=== PATIENT | male | born 1935 | race Caucasian/White ===

== ENCOUNTER 2023-03-21 06:22 | Day surgery (SDC) | payer MEDICARE, OTHER, SELFPAY ==
[2023-03-14 10:34] VITALS: BMI 29.8
[2023-03-21] VITALS (11 sets, daily range): BP systolic 106–156; BP diastolic 53–77; PULSE 51–92; RESP 11–17; TEMP 35.9–36.9; O2SAT 91–99; BMI 28.9
[2023-03-21] MEDS: VANCOMYCIN 1,000 MG/200 ML PIGGYBACK 200 MG IV (07:05)
[2023-03-21] MEDS: LACTATED RINGERS 1,000 ML 42 ML IV (07:05)
[2023-03-21] MEDS: ACETAMINOPHEN 325 MG TABLET 975 MG PO (07:05)
[2023-03-21] MEDS: CELECOXIB 200 MG CAPSULE PO (07:06)
--- NOTE | 2023-03-21 07:29 | SUR.OPER ---
Head on pillow. Supine on fracture table with operative leg secured in traction. Other leg secured in padded stirrup. Arms across chest, secured with sheet.
--- NOTE | 2023-03-21 07:40 | PM.PREOP ---
Pre-operative Note Interval Note History & Physical reviewed/Exam performed by Physician: Yes Changes to H&P: No
--- NOTE | 2023-03-21 07:43 | PM.OP.1 ---
Operative Date/Time/Diagnoses Date of procedure: 03/21/23 Time of procedure: 08:00 Pre-op diagnosis: right hip OA Post-op diagnosis: same Procedure & Clinicians Procedure: Right total hip arthroplasty anterior approach Same procedure as scheduled: Yes Indications: The patient has had progressively worsening right hip pain with radiographic changes consistent with arthritis. Non-operative management has failed and the patient has requested total hip replacement. The risks, benefits and alternatives to surgery were discussed with the patient prior to proceeding. Risks discussed included, but were not limited to, failure to relieve pain, leg length discrepancy, dislocation, stiffness, infection, nerve damage, deep venous thrombosis, pulmonary embolism, stroke, coma, heart attack, permanent paralysis and , as well as the potential need for eventual revision of the prosthetic. Surgeon: Izabel Kirby Director Of Special Services: Farhad Cuello Anesthesia Type: General and Spinal Operative Notes Findings: Severe right hip OA, adequate stability Closure Type: primary Specimen(s): none sent Prosthetic devices, grafts, tissues, transplants, or devices: Kirby and nephew 58 mm R3, neutral poly liner, one 6.5 mm screw, polar stem standard offset size 6, size 36+ 8 cobalt chrome head Estimated Blood Loss (mL): 250 Blood products transfused: none Procedure in detail: The patient was brought to the operating room. Patient was carefully positioned in the supine position. Time-out was performed and antibiotics were given. Anesthesia was induced. He was positioned in the on the table in order to allow hyperextension of the hip. The right lower extremity was prepped and draped in a standard sterile fashion. An anterior right hip incision was made 1 fingerbreadth lateral to the anterior superior iliac spine and extended distally towards the greater trochanter. Dissection was carried out through skin and subcutaneous tissues. Superficial hemostasis was achieved. The fascia over the tensor fascia yana was defined and incised with a knife. Two Allis clamps were used to grasp the fascia. Tensor fascia yana was retracted laterally. A gelpi retractor was placed. Dissection was carried out down along the neck. The circumflex vessels were carefully identified and cauterized with the Aqua Mantis. There was good visualization of the femoral neck. A Cobra was placed superior to the neck and the gluteus fibers were carefully stripped from that superior aspect of the capsule. A 2nd retractor was placed along the inferior aspect of the neck. The rectus insertion along the capsule was partially released. A 3rd retractor that was then gently placed over the rim of the acetabulum under the rectus. Capsule was carefully incised and released from the intertrochanteric line circumferentially superior to the mid sagittal line and inferiorly to the mid sagittal line until the lesser trochanter was palpable. A tag stitch was placed both in the superior and inferior limb of the capsular insertion. Along the acetabulum capsule was also released up to the mid sagittal 12:00 position. A portion of the labrum was resected. A saw was used to perform an osteotomy at the level of the intertrochanteric line and the junction of the superior femoral neck leaving approximately 1 finger breath of residual inferior neck above the lesser trochanter. A 2nd cut was made along the femoral neck at the base of the head and a napkin ring of neck was removed. Corkscrew was placed in the femoral head and the head was removed without difficulty. Retractors were then repositioned around the acetabulum. Residual labrum was resected and additional osteophytes were removed. A reamer that was 4 mm below the templated size was placed by hand in the acetabulum and it was reamed to centralize the acetabulum. It was then reamed up to 2 under the templated size and fluoroscopy was brought in to confirm the position of the reaming and depth of reaming. I reamed 1 under the anticipated size. A trial cup was placed and noted that it was appropriately sized and fluoroscopy confirmed position and depth. The component was open and inserted without difficulty fluoroscopic imaging was used to confirm that the cup had been adequately seated and was well positioned. It was further stabilized with a single screw. Neutral poly liner was placed. The cup was tested and noted to be stable. Attention was then directed to the femur. The femur was gently hyperextended additional capsular release was performed as needed in order to allow adequate visualization of the proximal femur with elevation of the femur. Patient was placed in a hyperextended slightly adducted position with maximum external rotation. Box osteotome was used to check for any residual neck as well as sclerotic bone along the trochanter. [place] pepper was placed in the femur. Additional broaching was performed. Canal finder was used to determine the alignment of the canal and position. Size 1 broach was placed. The canal was then appropriately broached up to the templated size as long as there was adequate stability of the broach and serial advancement of the broach without excessive impingement. Specific attention was directed at avoiding varus attempting to direct the distal aspect of the broach more anteriorly and avoiding excessive anteversion. Trial reduction showed acceptable range of motion, good stability, no posterior impingement, yazidism of leg length and appropriate lateral shuck. I also hyperflexed the hip and checked that there was no impingement anteriorly and there was good stability with flexion, adduction and internal rotation. We evaluated both the standard and the high offset neck and several different head and neck lengths. Standard offset with a +8 looked like it most closely replicated his normal hip biomechanics. There was good stability. Marcaine and Exparel were injected. The stem was placed without difficulty. Repeat trial reduction and x-ray showed acceptable overall position, length, and no evidence of the femoral fracture. Final head was placed. Wound was meticulously irrigated with normal saline. The hip was reduced and additional Exparel and Marcaine were injected. The capsule was closed with interrupted nonabsorbable sutures. The fascia of the tensor was closed with interrupted and running Vicryl. No drain was placed. Any tensor fascia yana muscle that appeared to be contused or injured which was a minimal amount was carefully resected. Capsule around the tensor was injected with Exparel and Marcaine. The skin was closed with barbed stitches for the subcutaneous tissue and skin. We also used surgical glue. The wound was dressed sterilely. Brief Betadine soak was also used and was meticulously irrigated with normal saline. Patient was transferred to recovery room in satisfactory condition. Complications: none Post-operative Condition: stable Disposition: Acute Care Plan for aftercare: The patient will be maintained on a standard total hip replacement protocol with weight bearing as tolerated and anterior hip precautions. The patient will receive Aspirin and sequential compression devices for DVT prophylaxis. The patient will be discharged home when safe for the home environment.
[2023-03-21] MEDS: CEFAZOLIN 2 GM/100 ML PREMIX 100 ML IV ×3 (07:49→23:22)
--- NOTE | 2023-03-21 08:00 | DI.RAD.S_ITS ---
PROCEDURE: XR HIP W PEL IF DONE RT 2V INDICATIONS: INNER OP TECHNIQUE: 2 view(s) of the hip acquired. COMPARISON: [facility], [place], XR HIP W PEL IF DONE RT 2V, 03/21/2023, 10:39. [facility] [place], [place], XR PELVIS WITH LATERAL HIP RIGHT, 12/07/2022, 16:13. [facility], [place], XR HIP W PEL IF DONE WIL 3TO4V, 07/11/2022, 11:10. [facility], [place], HIP 2V RIGHT, 04/23/2012, 14:56. FINDINGS: 4 intraoperative fluoroscopy images demonstrate right hip arthroplasty with prosthesis placement. IMPRESSION: Expected post-operative appearance of a hip arthroplasty. Dictated by: Alesha Gates M.D. on 03/21/2023 at 13:10 Approved by: Alesha Gates M.D. on 03/21/2023 at 13:11
[2023-03-21] MEDS: BUPIVACAINE 0.25% (PF) VIAL 30 ML INJ (08:33)
[2023-03-21] MEDS: BUPIVACAINE LIPOSOME 266 MG/20 ML VIAL INJ (08:34)
[2023-03-21] MEDS: TRANEXAMIC ACID 1,000 MG VIAL 1000 MG INJ (09:27)
--- NOTE | 2023-03-21 10:56 | SUR.PHASEI ---
Patient awake but drowsy; following all commands. Denies pain or nausea. Afib noted on monitor which is patient's baseline cardiac rhythm.
--- NOTE | 2023-03-21 11:00 | DI.RAD.S_ITS ---
PROCEDURE: XR HIP W PEL IF DONE RT 2V INDICATIONS: POST OP ANTERIOR HIP TECHNIQUE: AP pelvis and lateral view of the hip acquired. COMPARISON: [facility], [place], XR HIP W PEL IF DONE RT 2V, 03/21/2023, 8:59. FINDINGS: Bones: Patient is status post right hip arthroplasty, with hardware components in expected positions. The hip joint appears congruent. The visualized bony structures appear intact. Soft tissues: Overlying postoperative changes are noted. No suspicious soft tissue densities. IMPRESSION: Expected post-operative appearance of a hip arthroplasty. Dictated by: Emily Barnett M.D. on 03/21/2023 at 11:27 Approved by: Emily Barnett M.D. on 03/21/2023 at 11:27
[2023-03-21] MEDS: ACETAMINOPHEN 325 MG TABLET 650 MG PO ×3 (11:49→23:22)
[2023-03-21] MEDS: LACTATED RINGERS 1,000 ML 100 ML IV (11:49)
[2023-03-21] MEDS: OXYCODONE IR 5 MG TABLET PO (14:38)
--- NOTE | 2023-03-21 15:37 | PT.IIE ---
Current Diagnoses Unilateral primary osteoarthritis, right hip (03/21/23) Surgery Performed Operation Date: 03/21/23 07:45 Actual Procedures p Total Hip Arthroplasty/Anterior Approach(Right) - Izabel Kirby MD Surgical History (Last Updated 03/09/23 @ 10:30 by Flori Garza, RN) H/O arthroscopic knee surgery H/O radical prostatectomy History of heart bypass surgery (2008) History of hernia repair History of partial thyroidectomy History of tonsillectomy Hx of inguinal hernia surgery S/P right knee arthroscopy Status post coronary artery bypass graft (2008) Status post transurethral resection of prostate Medical History (Last Updated 03/14/23 @ 10:38 by lFori Garza RN) Anesthesia complication Aortic regurgitation Atrial fibrillation Brown's syndrome CAD (coronary artery disease) Cataract Dilated cardiomyopathy Hypercalcemia Hyperlipidemia Hyperparathyroidism Hypertension Kidney stones Non-sustained ventricular tachycardia PAF (paroxysmal atrial fibrillation) Polio Prostate cancer Scarlet fever Status post aorto-coronary artery bypass graft Ventral incisional hernia without obstruction or gangrene Physical Therapy Inpatient Evaluation/Re-Eval M1 PT/OT-IP Prior Functional Status Start: 03/21/23 14:25 Freq: NEEDED Status: Active Protocol: Document 03/21/23 15:00 MB (Rec: 03/21/23 15:36 MB [id number]) Medical Review Prior Functional Status Medical History Reviewed Yes Diet/Fluid Consistency Regular Communication WNLs Mobility and Gait Mod I with rollator Activities of Daily Living and IADL's I Social History Household Members spouse,children Living Arrangements House Number of Floors (Floors) One Floor Number of Stairs To Enter/Railing? 2 steps with left rail ascend to enter Home Environment Standard Height Toilet,Walk in Shower,Built-In Shower Seat Home Equipment Front Wheel Walker,Four Wheel Walker,Straight Cane,Shower Seat with Backrest Employment Status Retired Additional Social History Comment Mechanical bed M2 PT-IP Current Condition Start: 03/21/23 14:25 Freq: NEEDED Status: Active Protocol: Document 03/21/23 15:00 MB (Rec: 03/21/23 15:36 MB [id number]) Physical Therapy Current Condition Current Condition Evaluation Date 03/21/23 Treatment Diagnosis Right anterior FAITH M3 PT-IP Subjective Start: 03/21/23 14:25 Freq: NEEDED Status: Active Protocol: Document 03/21/23 15:00 MB (Rec: 03/21/23 15:36 MB [id number]) Subjective Physical Therapy Visit Type Type Initial Evaluation Visit Start Time 15:00 Visit Stop Time 15:28 Total Visit Minutes 28 Number of CHAINER Visits 0 Physical Therapy Visit Comments Patient Comments Pt states he is doing well. Therapy Pain Assessment Pain When Pain Assessed At Rest Pain Present Pain Present Denied Pain M4 PT-IP Mobility and Gait Start: 03/21/23 14:25 Freq: NEEDED Status: Active Protocol: Document 03/21/23 15:00 MB (Rec: 03/21/23 15:36 MB [id number]) PT-Bed Mobility Assessment Supine to Sit Supine to Sit Standby Assistance,Head of Bed Elevated Scooting Scooting to Edge of Bed Standby Assistance PT-Transfer Assessment Sit to and From Stand Sit to and from Stand Standby Assistance,1 Person Assistance,Use of Upper Extremities Equipment Transfer Assistive Device Gait Belt,Front Wheeled Walker Orthotic/Prosthetic Devices or Brace: No Transfer Ability Level of Assist Standby Assistance,1 Person Assistance,Use of Upper Extremities Comments Mobility Comments Cues to push up from the bed. Pt has mechanical bed at home and uses mechanical function of hospital bed and no rail. Gait Assessment Gait Gait Assistance Required: Standby Assistance Distance (Feet) 100 Able to Maintain Weight Bearing Status Yes During Gait Assistive Devices Assistive Device Gait Belt,Front Wheeled Walker Orthotic/Prosthetic Devices or Brace: No Gait Deviations General Gait Pattern Antalgic,Decreased Stride Length Factors Limiting Gait Function Factors Limiting Gait Function Decreased Activity Tolerance Comments Gait Comments Pt gait trains 100'x2 with RW and he states he does not have any pain: SBA and requires PT assistance to push IV pole Stair Climbing Assessment Evaluation Level of Assist On Stairs Standby Assistance,1 Person Assistance Devices Stair Climbing Assistive Devices Left Railing Technique/Endurance Stair Climbing Direction Ascend and Descend Stair Climbing Technique Step Over Step,Step to Step Number of Steps Climbed 3 Query Text: Stair Climbing Set # Repetitions (reps) 1 Comments Stair Climbing Comments Step over step ascend and step -to gait descend, leading with left foot first descend PT-Balance Assessment Sitting Balance and Reactions Static Sitting Balance Ability Good Dynamic Sitting Balance Ability Good Standing Balance and Reactions Static Standing Balance Ability Good Dynamic Standing Balance Ability Good Device Used RW M5 PT-IP Objective Assessments Start: 03/21/23 14:25 Freq: NEEDED Status: Active Protocol: Document 03/21/23 15:00 MB (Rec: 03/21/23 15:36 MB [id number]) Orientation Orientation/Cognition Level of Alertness Alert Orientation Name,Age,Birthday,Month,Date, Year,Day of Week,Place, Situation Language Function Ability No Deficits Noted Safety Awareness Understands Safety Issues Memory Description No Deficits Noted Gross Range of Motion Upper Extremity ROM Assessment Within Functional Limits Lower Extremity ROM Assessment Right Impaired Strength Upper Extremity Strength Assessment Within Functional Limits Lower Extremity Strength Assessment Right Impaired Comments Strength Comments Right hip range and strength changes same day post-op right FAITH Sensation Assessment Sensation Gross Sensation WNL M6 PT-IP Treatment Start: 03/21/23 14:25 Freq: NEEDED Status: Active Protocol: Document 03/21/23 15:00 MB (Rec: 03/21/23 15:36 MB [id number]) Physical Therapy Treatment Exercises Exercises Ankle Pumps,Heel Slides Education Education Provided Precautions,Weight Bearing Status,Post-Op Packet,Safety M7 PT-IP Assessment and Plan Start: 03/21/23 14:25 Freq: NEEDED Status: Active Protocol: Document 03/21/23 15:00 MB (Rec: 03/21/23 15:36 MB [id number]) PT Summary Assessment and Plan Potential Rehabilitation Potential Excellent Status of Condition at Evaluation Stable Summary Impairments ROM,Gait,Activity Tolerance Progress Towards Goals Safe For Discharge Assessment Summary Pt is a pleasant 87 y/o male who denies pain after medication and feels a lot better post-op right FAITH. He requires SBA for all activities including transfers , gait and steps giving IV and this is is first time up, same day surgery. He will have son assistance at d/c. PT ed pt in anterior hip precautions , exercises and stair training . No further acute PT needs. He has outpatient PT set-up for next week. Frequency of Treatment Frequency Of Treatment Discharge Precautions Anterior Hip Precautions No Hip Extension,No Hip External Rotation Weight Bearing Status Weight Bearing Status Weight Bear as Tolerated Recommendations To Nursing Amount of Assist Needed Standby Assistance,1 Person Assist Discharge Recommendations PT Discharge Recommendations Home with Assistance, Outpatient PT Transportation Needs at Discharge Private Vehicle
[2023-03-21] MEDS: MAGNESIUM OXIDE 400 MG TABLET PO (16:14)
[2023-03-21] MEDS: METOPROLOL IR 25 MG TABLET PO (16:14)
[2023-03-21] MEDS: ATORVASTATIN 20 MG TABLET PO (16:14)
[2023-03-21] MEDS: PANTOPRAZOLE DR 20 MG TABLET PO (20:50)
[2023-03-21] MEDS: VIT C/E/ZN/COPPR/LUTEIN/ZEAXAN CAPSULE 1 CAP PO (20:50)
[2023-03-21] MEDS: CHOLECALCIFEROL (VITAMIN D3) 1,000 UNIT TABLET 1000 UNIT PO (20:50)
[2023-03-21] MEDS: DOCUSATE 100 MG CAPSULE PO (20:50)
[2023-03-22 04:51] LABS: Hematocrit 36.9 % (41-53); Hemoglobin 12.7 g/dL (13.5-17.5)
[2023-03-22] MEDS: ACETAMINOPHEN 325 MG TABLET 650 MG PO ×2 (06:49→10:09)
--- NOTE | 2023-03-22 07:36 | PM.DS.1 ---
History of Present Illness History of Present Illness Chief complaint: Right FAITH 03/21/23 Narrative: The patient has had progressively worsening right hip pain with radiographic changes consistent with arthritis. Non-operative management has failed and the patient has requested total hip replacement. The risks, benefits and alternatives to surgery were discussed with the patient prior to proceeding. Risks discussed included, but were not limited to, failure to relieve pain, leg length discrepancy, dislocation, stiffness, infection, nerve damage, deep venous thrombosis, pulmonary embolism, stroke, coma, heart attack, permanent paralysis and , as well as the potential need for eventual revision of the prosthetic. This morning he is feeling well. Pain is controlled with oral medications. He was able to work with physical therapy yesterday and walk throughout the floor. He is ready to be discharged home with family. Discharge Providers Provider Date of admission: 03/21/2023 Discharge Date: 03/22/23 Primary care physician: Tiago May MD Consults: 03/21/23 06:27 Consult to Anesthesiology Routine Comment: Consulting Provider: Anesthesiologist Reason for consultation: Regional block for post operative pain control 03/21/23 11:03 Consult to Discharge Planning Routine Comment: Consult to Occupational Therapy Evaluate & Treat Comment: Physician Instructions: Evaluate and treat Consult to Physical Therapy Evaluate & Treat Comment: Physician Instructions: post op FAITH protocol Discharge provider: Dylan Baez PA-C Summary Hospital Course Discharge Diagnosis: Status post right hip total arthroplasty Hospital Course: Pain relief. Physical therapy. Status at Discharge Cognitive/behavioral status at discharge: oriented Functional status at discharge: uses cane/walker Overall status at discharge: patient is back to baseline Time Spent with Patient Time spent: Less than 30 minutes Exam Vital Signs (past 8 hours): Oxygen Delivery Method Room Air Oxygen Flow Rate 0 Narrative Exam Narrative: Patient is found lying comfortably in the bed. Dressing is clean and dry. No pain to compression along posterior thigh or calf. Able to dorsiflex and plantar flex against resistance the lower extremities bilaterally. Sensation is grossly intact bilaterally. Resp Effort & Inspection: normal respiratory effort and able to speak in complete sentences Objective Labs 03/22/23 04:25 Labs: Laboratory Results - last 24 hr 03/22/23 04:25 Hgb 12.7 L Hct 36.9 L [facility] Medical History (Updated 03/14/23 @ 10:38 by Flori Garza RN) Scarlet fever Dilated cardiomyopathy Hyperparathyroidism Hypercalcemia PAF (paroxysmal atrial fibrillation) Non-sustained ventricular tachycardia Anesthesia complication Polio Ventral incisional hernia without obstruction or gangrene Status post aorto-coronary artery bypass graft Atrial fibrillation Cataract CAD (coronary artery disease) Hyperlipidemia Hypertension Kidney stones Brown's syndrome Prostate cancer Aortic regurgitation Surgical History (Updated 03/09/23 @ 10:30 by Flori Garza RN) History of partial thyroidectomy H/O radical prostatectomy S/P right knee arthroscopy History of heart bypass surgery (2008) History of hernia repair History of tonsillectomy Hx of inguinal hernia surgery H/O arthroscopic knee surgery Status post transurethral resection of prostate Status post coronary artery bypass graft (2008) Family History Father Hypertension Colon cancer Arrhythmia Mother Hypertension Alzheimer's disease Social History marital status: household members: spouse and children Smoking Status: Never smoker alcohol intake: current substance use type: does not use Discharge Assessment & Plan Assessment and Plan Assessment: Status post right hip arthroplasty Plan of Treatment: Prescribed oxycodone 5mg take 1 tablet every 4 hours as needed for pain. Continue with Eliquis 5 mg for DVT prophylaxis. Start outpatient physical therapy within the next 7-10 days. Follow-up at [facility] orthopedics clinic in 2 weeks for wound check. Discharge Plan Discharge Plan Patient Disposition: Home Discharge orders & Medications Discharge Orders: Discharge (Order); Ordered 03/22/23 Ordered By: Dylan Baez Prescriptions: Continued cetirizine 10 MG tablet 10 mg PO DAILY Qty: 0 magnesium oxide 400 MG tablet 400 mg PO DIRECTED Qty: 0 Rx Instructions: 800 mg qam and 400 qpm Eliquis 5 MG tablet 5 mg PO BID Qty: 0 omeprazole 20 mg capsule,delayed release(DR/EC) See Rx Instructions .ROUTE .COMPLEX Qty: 180 3RF Dose Instruction: TAKE 1 CAPSULE TWICE DAILY Rx Instructions: TAKE 1 CAPSULE TWICE DAILY ipratropium bromide 21 mcg (0.03 %) spray,non-aerosol 2 spray intranasal BID-TID PRN (Reason: allergy symptoms) Qty: 90 3RF Rx Instructions: administer into each nostril fluticasone furoate 27.5 mcg/actuation [place],Suspension 1 spry Intranasal DAILY atorvastatin 20 mg Tablet 20 mg PO BEDTIME metoprolol tartrate 25 mg Tablet 25 mg PO BEDTIME losartan-hydrochlorothiazide 50-12.5 mg Tablet 1 tab PO DAILY Qty: 0 PreserVision AREDS-2 250-90-40-1 mg Capsule 1 tab PO BID acetaminophen 500 mg Tablet 1,000 mg PO BID metoprolol tartrate 25 mg tablet 75 mg PO QAM cholecalciferol (vitamin D3) 1,000 unit capsule 1,000 unit PO BEDTIME Follow up/Referrals: Tiago May MD [Primary Care Provider] - Izabel Kirby MD [Physician] - As previously scheduled (Follow up with Farhad Cuello PA-C, on 03/30/2023 @ 2:20 pm at [facility] in [place].) Diet/Activity/Treatments Diet: Diet as Tolerated Activity: Weightbearing as tolerated to right leg. Anterior hip precautions. Cold/Heat Therapy: Ice to hip as needed for pain. Skin/Wound/Dressing Care Report to your healthcare provider any signs of infection, such as:: chills, fever, night sweats, unusual drainage and unusual redness Dressing: May shower. Leave bandage in place until follow up in office. No bathing or otherwise soaking incision. Call the office if the dressing becomes saturated inside. Visit Report/Discharge Packet Instructions: DI for Hip Replacement, DI for Prescription Opioid Use Stand Alone Forms: Patient Portal/API, Surgery Discharge Discharge Data Primary Care Provider: Tiago May Attending Provider: Izabel Kirby Quality VTE Deep Vein Thrombosis/Pulmonary Embolism Present on Admission: No
[2023-03-22] MEDS: VIT C/E/ZN/COPPR/LUTEIN/ZEAXAN CAPSULE 1 CAP PO (08:30)
[2023-03-22] MEDS: METOPROLOL IR 25 MG TABLET 75 MG PO (08:30)
[2023-03-22 08:31] VITALS: BP 124/56; PULSE 79
[2023-03-22] MEDS: LOSARTAN 50 MG TABLET PO (08:31)
[2023-03-22] MEDS: hydroCHLOROthiazide 25 MG TABLET 12.5 MG PO (08:31)
[2023-03-22] MEDS: PANTOPRAZOLE DR 20 MG TABLET PO (08:31)
--- NOTE | 2023-03-22 08:40 | OT.IP.EVAL ---
Current Diagnoses Unilateral primary osteoarthritis, right hip (03/21/23) Surgery Performed Operation Date: 03/21/23 07:45 Actual Procedures p Total Hip Arthroplasty/Anterior Approach(Right) - Izabel Kirby MD Past Medical History (Last Updated 03/14/23 @ 10:38 by Flori Garza, RN) Anesthesia complication Aortic regurgitation Atrial fibrillation Brown's syndrome CAD (coronary artery disease) Cataract Dilated cardiomyopathy Hypercalcemia Hyperlipidemia Hyperparathyroidism Hypertension Kidney stones Non-sustained ventricular tachycardia PAF (paroxysmal atrial fibrillation) Polio Prostate cancer Scarlet fever Status post aorto-coronary artery bypass graft Ventral incisional hernia without obstruction or gangrene Surgical History (Last Updated 03/09/23 @ 10:30 by Flori Garza RN) H/O arthroscopic knee surgery H/O radical prostatectomy History of heart bypass surgery (2008) History of hernia repair History of partial thyroidectomy History of tonsillectomy Hx of inguinal hernia surgery S/P right knee arthroscopy Status post coronary artery bypass graft (2008) Status post transurethral resection of prostate Occupational Therapy Inpatient Evaluation/Re-Eval M1 PT/OT-IP Prior Functional Status Start: 03/22/23 10:03 Freq: NEEDED Status: Active Protocol: Document 03/22/23 10:04 [facility] (Rec: 03/22/23 10:16 [facility] [id number]) Medical Review Prior Functional Status Medical History Reviewed Yes Diet/Fluid Consistency Regular Communication WNLs Mobility and Gait Mod I with rollator Activities of Daily Living and IADL's Independent but had pain during ADL and IADl needs. Social History Household Members spouse,children Living Arrangements House Number of Floors (Floors) One Floor Number of Stairs To Enter/Railing? 2 steps with left cabilnet to ascend to enter Home Environment Standard Height Toilet,Walk in Shower,Built-In Shower Seat Home Equipment Front Wheel Walker,Four Wheel Walker,Straight Cane,Raised Toilet Seat Without Armrests, Shower Seat with Backrest,Long Handled Shoe Horn,Estate Planning Attorney, Sock Aid Employment Status Retired Additional Social History Comment Mechanical bed M2 OT-IP Current Condition Start: 03/22/23 10:03 Freq: Status: Active Protocol: Document 03/22/23 10:04 [facility] (Rec: 03/22/23 10:16 [facility] [id number]) Occupational Therapy Current Condition Current Condition Evaluation Date 03/22/23 Treatment Diagnosis S/P R FAITH Anterior Diagnosis Onset Date 03/21/23 Post Operative Precautions Anterior Hip Precautions No Hip Extension,No Hip External Rotation M3 OT- IP Subjective and Pain Start: 03/22/23 10:03 Freq: Status: Active Protocol: Document 03/22/23 10:04 [facility] (Rec: 03/22/23 10:16 [facility] [id number]) OT- Subjective Occupational Therapy Visit Type Type Initial Evaluation Visit Start Time 08:40 Visit Stop Time 09:12 Total Visit Minutes 32 Occupational Therapy Visit Comments Patient Comments Pt agreed to get dressed but not wanting to shower. Patient/Caregiver Goals TO go home. OT Pain Assessment Pain When Pain Assessed At Rest Pain Present Pain Present Pain Reported Location Right Hip Intensity 2 Scale Used Numeric (0 - 10) M4 OT- IP ADL's Start: 03/22/23 10:03 Freq: Status: Active Protocol: Document 03/22/23 10:04 [facility] (Rec: 03/22/23 10:16 [facility] [id number]) OT [id number] General Evaluation Self-Feeding Ability Independent OT ADL-Grooming General Evaluation Grooming Ability Independent OT ADL-Oral Care General Eval Oral Care Ability Independent OT ADL-Dressing General Eval Upper Body Dressing Ability Minimal Assistance Lower Body Dressing Ability Minimal Assistance Comments OT Dressing Comments Assist to help adjust his suspenders, and assist for slip on shoes. Pt educated to not cross over his RLE into external rotation. Pt sattes has a sock aid at home to assist with needs. Educated to dress his RLE first and take out last. OT ADL-Toileting Comments OT Toileting Comments Educated to roll FWW over the toilet to urinate and use of urinal at night. OT ADL-Bathing Comments OT Bathing Comments Pt states to shower at home. Went over care for showering needs for the dressing. M5 OT- IP IADL's Start: 03/22/23 10:03 Freq: Status: Active Protocol: Document 03/22/23 10:04 [facility] (Rec: 03/22/23 10:16 [facility] [id number]) OT-Instrumental Activities of Daily Living Deficits IADL Deficits Identified Deficits Home Safety Awareness Awareness of Need for Assistance at Home Good Awareness Ability to Problem Solve Emergency Able to Problem Solve Situations Meal Preparation Meal Preparation Caregiver Provides Assist Wood Heel Fitter Machine Wood Heel Fitter Machine Caregiver Provides Assist M6 OT- IP Functional Cognition Start: 03/22/23 10:03 Freq: Status: Active Protocol: Document 03/22/23 10:04 [facility] (Rec: 03/22/23 10:16 [facility] [id number]) Cognitive Factors Limiting Selfcare Function Cognitive Ability Level of Alertness Alert Patient Orientation Name,Age,Birthday,Month,Date, Year,Day of Week,Place, Situation Attention Span Ability Capable of Focused Attention, Capable of Sustained Attention Ability to Follow Commands Able to Follow One Step Commands Cognitive Comments Cognitive Assessment Comments Pt able follow directions for all ADL and mobility needs. Pt just needing reminders to keep the FWW in front of him while doing grooming needs. OT- Vision and Hearing OT- Hearing Assessment OT- Hearing Assessment Hearing Impaired,Use of Hearing Aids OT- Vision Assessment Visual Acuity Glasses All The Time Visual Attentiveness WFL Occular Pursuits WFL M7 OT- IP Mobility and Balance Start: 03/22/23 10:03 Freq: Status: Active Protocol: Document 03/22/23 10:04 [facility] (Rec: 03/22/23 10:16 [facility] [id number]) OT-Transfer Assessment Sit to and From Stand Sit to and from Stand Standby Assistance Transfers Transfer Ability Standby Assistance Technique Transfer Destination Chair Transfer Technique Stand Step Pivot Devices Transfer Assistive Devices Front Wheeled Walker Comments Mobility Comments SBA with FWW. OT- Balance Assessment Sitting Balance and Reactions Static Sitting Balance Ability Good Dynamic Sitting Balance Ability Good Standing Balance and Reactions Static Standing Balance Ability Good Dynamic Standing Balance Ability Fair M9 OT- IP Assessment and Plan Start: 03/22/23 10:03 Freq: Status: Active Protocol: Document 03/22/23 10:04 [facility] (Rec: 03/22/23 10:16 [facility] [id number]) OT Summary Assessment and Plan Potential Rehabilitation Potential Good Analytic Complexity at Evaluation Low Summary OT Impairments Pain,Balance,Functional Mobility,Dressing,Bathing, Shower Transfers Progress Towards Goals Progressing Toward Goals Assessment Summary Pt low complexity and main barriers are pain, needing assist for dressing and showering needs. Pt has supportive family at home to assist for his needs. Goals Dressing Goal Independent,Long Handled Shoe Horn,Estate Planning Attorney,Sock Aid Shower Transfer Goal Independent Days to Meet Goals 3 Frequency of Treatment Frequency Of Treatment Once a Day Treatment Plan OT Treatment Plan ADL Training,Functional Mobility,Patient/Family Education,Discharge Planning Discharge Recommendations OT Discharge Recommendations Home with Assistance, Outpatient PT Transportation Needs at Discharge Private Vehicle
[2023-03-22 08:44] VITALS: BP 124/56; PULSE 79; RESP 14; TEMP 36.5; O2SAT 99
--- NOTE | 2023-03-22 10:42 | CM.DANOTE ---
DCP: Case received, EMR reviewed and met with patient. Introduced self and role. Was able to obtain information regarding patient's baseline activity status prior to his surgery. DCP assessment completed with information currently available. Patient is an 87 year old male who admitted yesterday morning to the care of the orthopedic team. PCP: Dr. May. Payer: confirmed: Medicare/Commercial Insurance. Patient came to the hospital for a surgical procedure. Patient had right total hip arthroplasty anterior approach. Patient has history of right hip OA. Met with with patient in his room. He was sitting up in chair, alert. Confirmed that he resides here in [place] with his spouse, Ree. He indicated that she will be assisting him when he goes home. Patient also has a son to assist him at home as well. Patient has two steps to enter the house, he has worked with P.T and O.T. Patient is independent at his baseline. P: Patient is discharging home today, most likely with outpatient therapy. Maday Pizano RN/Policy Loan Calculator Discharge Planning/Care Management CM Discharge Assessment Start: 03/22/23 10:40 Freq: Status: Active Protocol: Document 03/22/23 10:41 (Rec: 03/22/23 10:42 [id number]) Discharge Planning Assessment Assigned Drawer Maker Maday Pizano RN/Policy Loan Calculator Advance Directives? Yes: Advance Health Care Directive and Living Will Advance Directives on File Yes History Provided By Patient,Medical Record Prior Living Arrangements House Household Members spouse,children Type of transporation used prior to Drives own vehicle admit Independent with ADL's Yes Is patient alert and oriented? Yes Caregiver for Another No DME Already Rented / Owned Cane Barriers to Discharge No Discharge Plan Home Transportation Arrangement Spouse Referrals Initiated None needed Whiteboard Updated in Patient Room with Yes name and ext. # of Drawer Maker Review Status In Process Next Review Type Continued Stay Review Pre-Anesthesia Assessment Start: 03/09/23 09:47 Freq: Status: Discharge Protocol: Document 03/14/23 10:34 CAB (Rec: 03/09/23 10:32 CAB [id number]) Pre-Anesthesia Assessment PAC Comment Pt was abrupt and stated I was the third person who has asked him these questions and I should get with the lee that be because this is annoying for the person When I attempted to explain the need to confirm that we have the most correct information, he interrupted and said again it was annoying. 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 Patient Information Reviewed Via Phone Assessment Assessment Completed With Patient Diagnostic Results BMP/CMP,CBC,EKG Comment Labs/EKG Primary Care Provider Tiago May Seen Specialist in Last 12 Months Yes Specialist Seen Hospital Social Worker,Orthopedist Primary Language Azerbaijani Installation Service Representative Required No Height 5 ft 9.5 in Weight 205 lb Body Mass Index (BMI) 29.8 Hx Anesthesia Reactions Yes: Difficulty with intubation w/CABG '09, none since Hx Family Anesthesia Reaction No Hx Malignant Hyperthermia No Hx Blood Transfusions No Hx Blood Transfusion Reaction No Anesthesia Review Requested No Director Medical Writing No alcohol intake current alcohol intake frequency a few times a week Smoking Status Never smoker Substance Use Type does not use Pain Present Pain Reported Musculoskeletal Symptoms Abnormal Gait,Back Pain, Difficulty Walking,Joint Pain History of Falling (Recent or History of Yes ) Patient is completely paralyzed or No completely immobile Prosthesis or Orthotic Device Cane,Front Wheel Walker Mental Status Oriented to own ability Is patient on oxygen? No Does patient have SORENSEN/SOB No Hx Sleep Apnea No CPAP/BIPAP use not prescribed Currently Taking a Beta Debbie Yes: Metoprolol Can You Climb a Flight of Stairs Without Yes SOB Hx Chest Pain No Hx SOB No Hx Syncope or Dizziness No Anti-Coagulant Therapy Yes: Ema [address] Kirby Has a Hospital Social Worker Yes: Visit 01/09/[address] name [address]. Guillen @ [facility] Cardiac Testing Yes: Echo @ [facility] 01/03/23-low risk study Hx Pacemaker/ICD No Pacemaker Rep Required? No Comment Cardiac records scanned and in surgery folder for dos Diet Type At Home Regular Dysphagia Yes: Problems with pill Gastrointestinal Symptoms Reflux Comment Hx Brown's esophagus Urinary Catheter Present No Hx Urinary Self Catheterization No Diabetes No HgbA1C 5.5 Date 02/24/23 Presence of External or Internal Medical Yes: CABG Devices Received a COVID vaccine? Yes Received all doses? Yes Marital Status Lives With spouse,children Current Living Arrangements House Number of Floors (Floors) 3 or More Floors Support System Child/Children Comment Son lives w/pt and will assist with care at [place] Patient Discharge Plan Description Return Home Comment Pt advised overngiht length of stay per surgeon Feels Safe in Current Environment Yes Been Physically Hurt or Threatened By a No Person in Current Environment Do you have thoughts of harming yourself None or others? Are you currently considering suicide? No Do you have a plan to hurt yourself or No Plan others? Do You Have Any Spiritual Beliefs That No May Affect Your HC Choices? Do You Have Any Cultural Practices That No May Affect Your HC Choices? Who Can We Speak to About Patient's Care Family, friends Identifying Code for Release of Patient Declines to issue Information Health Care Proxy/Next of Kin Ree () Darshan (son) Health Care Proxy Phone Number Ree: [phone] Darshan: Pt to update dos Advance Directives? Yes: Advance Health Care Directive and Living Will Advance Directives on File Yes Power of Preparation Operator Yes Power of Preparation Operator Name Ree Jones Power of Preparation Operator PAC Instructions Durable medical equipment, Medications to take/avoid, Nasal antibiotic,No ETOH/ petroleum product on skin DOS, NPO,Post-op transportation,Pre -surgical wash,Sensory aids, Sturdy shoes/comfortable clothes,Do not bring valuables and remove jewelry
== END 2023-03-22 10:15 | disposition home or self-care (01) ==
LOC: OR 06:24 → AC 06:25
PROVIDERS: Family Provider Family Medicine; PCP Family Medicine; Referring Provider Orthopaedic Surgery; Visit Provider Orthopaedic Surgery
PROC: (CPT 27130; principal; 2023-03-21 07:45)
DX: M16.11 Unilateral primary osteoarthritis, right hip (principal)
CPT/HCPCS: 27130; 73502; 76000; 85014; 85018; 97116; 97161; 97165; 97535; C1776; C9290; J0690; J1100; J2405; J2704

== ENCOUNTER 2023-03-23 10:13 | Emergency (ER) | payer MEDICARE, OTHER, SELFPAY ==
[2023-03-21 06:27] VITALS: BMI 28.9
[2023-03-23 10:19] VITALS: BP 135/62; PULSE 97; RESP 15; TEMP 36.1; O2SAT 96; BMI 28.9
--- NOTE | 2023-03-23 10:23 | DI.US.S_ITS ---
PROCEDURE: US PERIPH VENOUS LOW EXTREM RT INDICATIONS: RIGHT LOWER EXTREMITY PAIN TECHNIQUE: Real-time imaging, as well as color and pulse Doppler interrogation, were performed of the lower extremity deep veins from the inguinal ligament to the popliteal fossa, with documentation of the visualized calf veins. COMPARISON: None. FINDINGS: The common femoral, femoral, popliteal, and the visualized calf veins are normally compressible, and free of intraluminal thrombus. Color and pulse Doppler demonstrate normal phasic intraluminal flow. There is normal augmentation response to distal compression maneuver. IMPRESSION: No findings of lower extremity deep venous thrombosis. Dictated by: Mi Wiley M.D. on 03/23/2023 at 12:15 Approved by: Mi Wiley M.D. on 03/23/2023 at 12:16
--- NOTE | 2023-03-23 11:33 | PC.NURSE ---
Aquacell bandage over the surgical sight. Skin around incision is taut. The skin is free from redness and drainage but is a little warm to touch. The patient had a concern for color changes in his skin pointing to the left over skin prep from the surgical procedure.
--- NOTE | 2023-03-23 11:44 | ED_ITS ---
HPI - Extremity Injury (Lower) <Geronimo HowellSHANAE boyer - Last Filed: 03/23/23 14:46> General Chief Complaint: Extremity Injury, Lower Stated Complaint: sent by maddy Cuellar Time Seen by Provider: 03/23/23 11:04 Mode of arrival: Wheelchair History of Present Illness HPI Narrative: 87-year-old male, never smoker, presents to the emergency department with right hip swelling and pain x1 day. Patient had hip surgery on March 21 by [facility] and was kept overnight. Patient was discharged yesterday morning and was doing well with walking every few hours until about 10:00 p.m. when symptoms worsened. Patient states that he is having a hard time standing due to the pain and the site is now warm and taut. Patient states he contacted his surgeon's office and was told to come to the emergency department for evaluation. Related Data Home Medications Medication Instructions Recorded Confirmed apixaban 5 mg tablet (Eliquis) 5 mg PO BID ##0 08/25/16 03/21/23 cetirizine 10 mg tablet 10 mg PO DAILY ##0 08/25/16 03/21/23 magnesium oxide 400 mg (241.3 mg 400 mg PO DIRECTED ##0 08/25/16 03/21/23 magnesium) tablet losartan 50 mg-hydrochlorothiazide 1 tab PO DAILY ##0 10/18/17 03/21/23 12.5 mg tablet atorvastatin 20 mg tablet 20 mg PO BEDTIME 11/08/17 03/21/23 fluticasone furoate 27.5 1 spry intranasal DAILY 11/08/17 03/21/23 mcg/actuation nasal spray,suspension cholecalciferol (vitamin D3) 25 1,000 unit PO BEDTIME 03/27/19 03/09/23 mcg (1,000 unit) capsule acetaminophen 500 mg tablet 1,000 mg PO BID 08/23/21 03/21/23 vit C 250 mg-vit E 90 mg-zinc 40 1 tab PO BID 08/23/21 03/09/23 mg-copper 1 fc-fwrigu-tojrya capsule (PreserVision AREDS-2) metoprolol tartrate 25 mg tablet 75 mg PO QAM 08/30/21 03/21/23 metoprolol tartrate 25 mg tablet 25 mg PO BEDTIME 03/09/23 03/21/23 Previous Rx's Medication Instructions Recorded omeprazole 20 mg capsule,delayed See Rx Instructions .Route 01/24/22 release .COMPLEX #180 caps ipratropium bromide 21 mcg (0.03 2 spray intranasal BID-TID PRN 04/19/22 %) nasal spray allergy symptoms #90 mL Allergies Allergy/AdvReac Type Severity Reaction Status Date / Time No Known Drug Allergies Allergy Verified 03/23/23 10:19 Review of Systems <SHANAE Benjamin - Last Filed: 03/23/23 14:46> Review of Systems Narrative: Narrative: See HPI. GENERAL: Denies chills, fatigue, fever, sweats. HEENT: Denies sinus pain, ear pain, sore throat, difficulty swallowing, dizziness. RESPIRATORY: Denies dyspnea, cough, wheezing, sputum. CARDIOVASCULAR: Denies chest pain, palpitations, edema. GASTROINTESTINAL: Denies nausea, vomiting, abdominal pain, diarrhea, constipation. : Denies dysuria, frequency, incontinence, hematuria, urinary retention, flank pain. MSK: Denies weakness or bony pain. Endorses right hip pain and swelling. SKIN: Denies rash, skin lesions, or pruritis. NEUROLOGIC: Denies weakness, dizziness, headache, numbness, confusion. PSYCHIATRIC: No concerning psychosocial issues. Patient History <SHANAE Benjamin - Last Filed: 03/23/23 14:46> Medical History Scarlet fever Dilated cardiomyopathy Hyperparathyroidism Hypercalcemia PAF (paroxysmal atrial fibrillation) Non-sustained ventricular tachycardia Anesthesia complication Polio Ventral incisional hernia without obstruction or gangrene Status post aorto-coronary artery bypass graft Atrial fibrillation Cataract CAD (coronary artery disease) Hyperlipidemia Hypertension Kidney stones Brown's syndrome Prostate cancer Aortic regurgitation Surgical History History of partial thyroidectomy H/O radical prostatectomy S/P right knee arthroscopy History of heart bypass surgery (2008) History of hernia repair History of tonsillectomy Hx of inguinal hernia surgery H/O arthroscopic knee surgery Status post transurethral resection of prostate Status post coronary artery bypass graft (2008) Family History Father Hypertension Colon cancer Arrhythmia Mother Hypertension Alzheimer's disease Social History marital status: household members: spouse and children Smoking Status: Never smoker alcohol intake: current substance use type: does not use Smoking Status: Never smoker alcohol intake frequency: holidays/special occasions only Substance Use Type: does not use Exam <SHANAE Benjamin - Last Filed: 03/23/23 14:46> Narrative Exam Narrative: Exam Narrative: GENERAL: This is a well-nourished, well-developed patient, in no acute distress. HEAD: Atraumatic. Normocephalic. EYES: Pupils equal round and reactive. No scleral icterus, injection or drainage. ENT: Nose without bleeding, purulent drainage. Airway patent. NECK: Trachea midline. No JVD or lymphadenopathy. Nontender. CARDIOVASCULAR: Regular rate and rhythm without murmurs, peripheral pulses intact, cap refill <2 sec. RESPIRATORY: Breath sounds equal and clear bilaterally. No wheezes, rales, or rhonchi. No cough. No increased respiratory effort. No accessory muscle use. GASTROINTESTINAL: Abdomen soft, non-tender, nondistended without guarding or rebound. No suprapubic pain. MSK: Moves all extremities. Limited range of motion due to pain. Right lower extremity swelling. Neurovascularly intact. No internal or external rotation. Both legs are equally long. NEURO: A&O x 3. SKIN: Warm, dry, no rashes or lesions noted. Skin surrounding surgical site is warm and taut. Only discoloration is from surgical skin prep. Initial Vital Signs Initial Vital Signs: Vital Signs Temperature 97.0 F L 03/23/23 10:19 Pulse Rate 97 H 03/23/23 10:19 Respiratory Rate 15 03/23/23 10:19 Blood Pressure 135/62 03/23/23 10:19 Pulse Oximetry 96 03/23/23 10:19 Oxygen Delivery Method Room Air 03/23/23 10:19 Reviewed <Geronimo Francois DO - Last Filed: 03/23/23 17:43> Initial Vital Signs Initial Vital Signs: Vital Signs Temperature 97.0 F L 03/23/23 10:19 Pulse Rate 97 H 03/23/23 10:19 Respiratory Rate 15 03/23/23 10:19 Blood Pressure 135/62 03/23/23 10:19 Pulse Oximetry 96 03/23/23 10:19 Oxygen Delivery Method Room Air 03/23/23 10:19 Course <SHANAE Benjamin - Last Filed: 03/23/23 14:46> Orders Ordered: ED Orders 03/23/23 10:23 US periph venous low extrem rt Stat 03/23/23 11:59 XR pelvis 1-2V Stat 03/23/23 13:00 CBC Auto Diff [Complete Blood Count AUTO DIFF] Stat Consultations Consultation #1: Dr. Izabel Kirby, orthopedic surgeon. Requested portable right hip x-ray. X- ray results show no fracture, osseous lesion or hardware dislodgement. Recommended I contact the physician's assistants currently working in this hospital to come down for evaluation. Suggested that a walker may be necessary for ease of ambulation at home. Requested a CBC to be drawn. CBC reveals a elevated WBC and worsening anemia from yesterday. Consultation #2: RICARDO Mensah, was directed to evaluate patient in the emergency department. Decision was made to prescribe muscle relaxers and pain medication. Vital Signs Vital signs: Vital Signs - 8 hr 03/23/23 10:19 03/23/23 12:27 03/23/23 14:42 Temperature 97.0 F L 98 F Pulse Rate 97 H 91 H 87 Respiratory Rate 15 18 18 Blood Pressure 135/62 140/65 151/76 H Pulse Oximetry 96 100 100 Oxygen Delivery Method Room Air Room Air Room Air <Geronimo Francois DO - Last Filed: 03/23/23 17:43> Orders Ordered: ED Orders 03/23/23 10:23 periph venous low extrem rt Stat 03/23/23 11:59 XR pelvis 1-2V Stat 03/23/23 13:00 CBC Auto Diff [Complete Blood Count AUTO DIFF] Stat Vital Signs Vital signs: Vital Signs - 8 hr 03/23/23 10:19 03/23/23 12:27 03/23/23 14:42 Temperature 97.0 F L 98 F Pulse Rate 97 H 91 H 87 Respiratory Rate 15 18 18 Blood Pressure 135/62 140/65 151/76 H Pulse Oximetry 96 100 100 Oxygen Delivery Method Room Air Room Air Room Air MDM - Extremity Injury (Lower) <SHANAE Benjamin - Last Filed: 03/23/23 14:46> Differential Diagnosis Differential diagnosis: Likely other (DVT, early cellulitis, postoperative infection) Lab Data 03/23/23 13:00 Labs: Lab Results 03/23/23 Range/Units 13:00 WBC 12.1 H (4.5-11.0) X10^3/uL RBC 3.75 L (4.5-5.9) X10^6/uL Hgb 12.2 L (13.5-17.5) g/dL Hct 35.4 L (41-53) % MCV 94.4 (80-100) fL MCH 32.5 (26-34) PG MCHC 34.5 (30-36) % RDW 13.8 (11.6-14.8) % Plt Count 149 L (150-400) X10^3/uL Neut % (Auto) 68.2 (50-75) % Lymph % (Auto) 13.9 L (25-40) % [place] % (Auto) 16.3 H (3-14) % Eos % (Auto) 1.0 L (2-4) % Baso % (Auto) 0.6 (0-2) % Neut # (Auto) 8300 H (7748-7667) /uL Lymph # (Auto) 1700 (5305-3244) /uL [place] # (Auto) 2000 H (0-900) /uL Eos # (Auto) 100 (0-450) /uL Baso # (Auto) 100 (0-100) /uL Imaging Data US - DVT: Radiologist's Impression: [place] [address] Ultrasound Report Signed Patient: Jamie Jones MR#: [id number] : 1935 Acct:[id number] Age/Sex: 87 / M Date of Service: 03/23/23 Loc: ED Accession Number: [id number] Procedure: US periph venous low extrem rt Ordering Provider: Geronimo Francois D.O. PROCEDURE: US PERIPH VENOUS LOW EXTREM RT INDICATIONS: RIGHT LOWER EXTREMITY PAIN TECHNIQUE: Real-time imaging, as well as color and pulse Doppler interrogation, were performed of the lower extremity deep veins from the inguinal ligament to the popliteal fossa, with documentation of the visualized calf veins. COMPARISON: None. FINDINGS: The common femoral, femoral, popliteal, and the visualized calf veins are normally compressible, and free of intraluminal thrombus. Color and pulse Doppler demonstrate normal phasic intraluminal flow. There is normal augmentation response to distal compression maneuver. IMPRESSION: No findings of lower extremity deep venous thrombosis. Dictated by: Mi Wiley M.D. on 03/23/2023 at 12:15 Approved by: Mi Wiley M.D. on 03/23/2023 at 12:16 Extremity x-ray #1: Radiologist's Impression: Close Pelvis X-Ray (Signed) Marcelle Hunter - 03/23/23 Vascular Ultrasound (Signed) Mi Wiley - 03/23/23 Launch?[address] [address] XRay Report Signed Patient: Jamie Jones MR#: [id number] : 1935 Acct:[id number] Age/Sex: 87 / M Date of Service: 03/23/23 Loc: ED Accession Number: [id number] Procedure: XR pelvis 1-2V Ordering Provider: Geronimo Allen PROCEDURE: XR PELVIS 1-2V INDICATIONS: Right hip pain TECHNIQUE: 1 view of the lower pelvis acquired. COMPARISON: None. FINDINGS: Bones: Patient is status post right hip arthroplasty, with hardware components in expected positions. The hip joint appears congruent. The visualized bony structures appear intact. Soft tissues: Overlying postoperative changes are noted. No suspicious soft tissue densities. IMPRESSION: No acute fracture. No osseous lesion. If symptoms and/or clinical suspicion for pathology persist, further assessment with repeat, or advanced imaging (e.g., CT, MRI, or bone scan) may be helpful for further assessment. Dictated by: Marcelle Hunter M.D. on 03/23/2023 at 12:30 Approved by: Marcelle Hunter M.D. on 03/23/2023 at 12:30 [facility] Narrative Medical decision making narrative: 87-year-old male with right hip pain and swelling, 48 hours postop from hip surgery. Assessment was concerning for DVT, early cellulitis. Ultrasound obtained and was negative for a DVT. Per Dr. Kirby request, hip x-ray obtained and was normal (no fractures, osseous lesions and hardware is in expected locations). CBC obtained with slight increase in WBC and worsening anemia. Dr. Kirby's PA, Mary Jo Mensah, contacted to evaluate patient in the emergency department. Evaluation was unremarkable and believes it is just postsurgical fluid collection. RICARDO Mensah will prescribe muscle relaxers and pain medications. Patient will follow-up as directed. Discussed plan of care and return precautions patient, who verbalized understanding and was agreeable to course of action. <Geronimo Francois, DO - Last Filed: 03/23/23 17:43> Lab Data Labs: Lab Results 03/23/23 Range/Units 13:00 WBC 12.1 H (4.5-11.0) X10^3/uL RBC 3.75 L (4.5-5.9) X10^6/uL Hgb 12.2 L (13.5-17.5) g/dL Hct 35.4 L (41-53) % MCV 94.4 (80-100) fL MCH 32.5 (26-34) PG MCHC 34.5 (30-36) % RDW 13.8 (11.6-14.8) % Plt Count 149 L (150-400) X10^3/uL Neut % (Auto) 68.2 (50-75) % Lymph % (Auto) 13.9 L (25-40) % [place] % (Auto) 16.3 H (3-14) % Eos % (Auto) 1.0 L (2-4) % Baso % (Auto) 0.6 (0-2) % Neut # (Auto) 8300 H (2483-7272) /uL Lymph # (Auto) 1700 (8850-6321) /uL [place] # (Auto) 2000 H (0-900) /uL Eos # (Auto) 100 (0-450) /uL Baso # (Auto) 100 (0-100) /uL Discharge Plan Departure Patient Disposition: Home Clinical Impression: Acute postoperative pain of right hip Activity Restrictions/Additional Instructions: *You have been diagnosed with possible postoperative hematoma of right hip. Your x-ray and ultrasound were both normal. You had an increase in your WBC of 12.1 and slight worsening anemia. You were evaluated by your surgeon's physician language assistant and determined safe for discharge home. *What to do: *Please continue to take your regular medications as directed. [ ] New medication prescriptions sent to your pharmacy: [ ] [ ] New medication written as a paper prescription [ x] No new medications given. New medications will be prescribed by orthopedic physician language assistant. *Please follow up with your primary care provider in 2-3 days, call for an appointment. Let them know you were seen in the Emergency Department and that we ask that you be seen in follow up. We will electronically transmit a record of today's note if your PCP is in our system *If you do not have a primary care provider please contact the [facility] Resource line at [phone]. They will ask some questions about your medical history and help get you set up with a doctor in the community. ? Return to ER if you should have any new, worsening or concerning symptoms, such as worsening pain, severe headache, confusion, chest pain, difficulty breathing, fever greater than 101 F, shaking chills, persistent vomiting to the point that you cannot drink fluids, or other new or worsening symptoms. Prescriptions: No Action cetirizine 10 MG tablet 10 mg PO DAILY Qty: 0 magnesium oxide 400 MG tablet 400 mg PO DIRECTED Qty: 0 Rx Instructions: 800 mg qam and 400 qpm Eliquis 5 MG tablet 5 mg PO BID Qty: 0 omeprazole 20 mg capsule,delayed release(DR/EC) See Rx Instructions .ROUTE .COMPLEX Qty: 180 3RF Dose Instruction: TAKE 1 CAPSULE TWICE DAILY Rx Instructions: TAKE 1 CAPSULE TWICE DAILY ipratropium bromide 21 mcg (0.03 %) spray,non-aerosol 2 spray intranasal BID-TID PRN (Reason: allergy symptoms) Qty: 90 3RF Rx Instructions: administer into each nostril fluticasone furoate 27.5 mcg/actuation [place],Suspension 1 spry Intranasal DAILY atorvastatin 20 mg Tablet 20 mg PO BEDTIME metoprolol tartrate 25 mg Tablet 25 mg PO BEDTIME losartan-hydrochlorothiazide 50-12.5 mg Tablet 1 tab PO DAILY Qty: 0 PreserVision AREDS-2 250-90-40-1 mg Capsule 1 tab PO BID acetaminophen 500 mg Tablet 1,000 mg PO BID metoprolol tartrate 25 mg tablet 75 mg PO QAM cholecalciferol (vitamin D3) 1,000 unit capsule 1,000 unit PO BEDTIME Referrals: Tiago May MD [Primary Care Provider] - Izabel Kirby MD [Physician] - As previously scheduled (Follow up with Farhad Cuello PA-C, on 03/30/2023 @ 2:20 pm at [facility] office in [place].) Stand Alone Forms: Patient Portal/API ED Sign-out <Geronimo Francois, DO - Last Filed: 03/23/23 17:43> Cosign ED Attending Cosignature Attestation: Dr Francois Co-Sign Statement: I was available for consultation during this patient's emergency department visit. This chart is signed by myself for administrative purposes only. I did not have direct contact with this patient during this visit. They were seen independently by the APC.
--- NOTE | 2023-03-23 11:59 | DI.RAD.S_ITS ---
PROCEDURE: XR PELVIS 1-2V INDICATIONS: Right hip pain TECHNIQUE: 1 view of the lower pelvis acquired. COMPARISON: None. FINDINGS: Bones: Patient is status post right hip arthroplasty, with hardware components in expected positions. The hip joint appears congruent. The visualized bony structures appear intact. Soft tissues: Overlying postoperative changes are noted. No suspicious soft tissue densities. IMPRESSION: No acute fracture. No osseous lesion. If symptoms and/or clinical suspicion for pathology persist, further assessment with repeat, or advanced imaging (e.g., CT, MRI, or bone scan) may be helpful for further assessment. Dictated by: Marcelle Hunter M.D. on 03/23/2023 at 12:30 Approved by: Marcelle Hunter M.D. on 03/23/2023 at 12:30
[2023-03-23 12:27] VITALS: BP 140/65; PULSE 91; RESP 18; TEMP 36.6; O2SAT 100
[2023-03-23 13:05] LABS: Add Manual Diff / Slide Review NO; Basophils Absolute Auto 100 /uL (0-100); Basophils Percent Auto 0.6 % (0-2); Eosinophils Absolute Auto 100 /uL (0-450); Hematocrit 35.4 % (41-53); Hemoglobin 12.2 g/dL (13.5-17.5); Lymphocytes Absolute Auto 1700 /uL (1100-4500); Lymphocytes Percent Auto 13.9 % (25-40); Mean Corpuscular HGB Conc 34.5 % (30-36); Mean Corpuscular Hemoglobin 32.5 PG (26-34); Mean Corpuscular Volume 94.4 fL (80-100); Monocytes Absolute Auto 2000 /uL (0-900); Monocytes Percent Auto 16.3 % (3-14); Neutrophils Absolute Auto 8300 /uL (1500-7000); Neutrophils Percent Auto 68.2 % (50-75); Platelet Count 149 X10^3/uL (150-400); Red Blood Cell Count 3.75 X10^6/uL (4.5-5.9); Red Cell Distribution Width 13.8 % (11.6-14.8); White Blood Cell Count 12.1 X10^3/uL (4.5-11.0)
[2023-03-23 14:42] VITALS: BP 151/76; PULSE 87; RESP 18; O2SAT 100
== END 2023-03-23 14:55 | disposition home or self-care (01) ==
PROVIDERS: Emergency Provider Registered Nurse; Family Provider Family Medicine; PCP Family Medicine
DX: G89.18 Other acute postprocedural pain (principal); Z79.01 Long term (current) use of anticoagulants; Z79.899 Other long term (current) drug therapy
CPT/HCPCS: 72170; 85025; 93971; 99283; 99284

== ENCOUNTER 2023-05-18 11:15 | Outpatient (RCR) | payer MEDICARE, OTHER, SELFPAY ==
--- NOTE | 2023-03-15 14:07 | PT.OIE ---
Current Diagnoses Unilateral primary osteoarthritis, right hip (03/15/23) Muscle weakness (generalized) (03/15/23) Difficulty in walking, not elsewhere classified (03/15/23) Past Medical History (Last Updated 03/14/23 @ 10:38 by Flori Garza, RN) Anesthesia complication Aortic regurgitation Atrial fibrillation Brown's syndrome CAD (coronary artery disease) Cataract Dilated cardiomyopathy Hypercalcemia Hyperlipidemia Hyperparathyroidism Hypertension Kidney stones Non-sustained ventricular tachycardia PAF (paroxysmal atrial fibrillation) Polio Prostate cancer Scarlet fever Status post aorto-coronary artery bypass graft Ventral incisional hernia without obstruction or gangrene Past Surgical History (Last Updated 03/09/23 @ 10:30 by Flori Garza RN) H/O arthroscopic knee surgery H/O radical prostatectomy History of heart bypass surgery (2008) History of hernia repair History of partial thyroidectomy History of tonsillectomy Hx of inguinal hernia surgery S/P right knee arthroscopy Status post coronary artery bypass graft (2008) Status post transurethral resection of prostate Visit Care Team Role Provider Type Tiago May MD Family Provider Physician Primary Care Provider Specialty: [facility] Address: [address] [place] [address], [address], [address] Email: [email or web address] Izabel Kirby MD Attending Provider Physician Referring Provider Specialty: Orthopedics Orthopedic Surgery Address: [address] [place] [address], [id number] Email: [email or web address] Physical Therapy Initial Evaluation PT-OP-A Visit Information Start: 03/02/23 17:00 Freq: Status: Active Protocol: Document 03/15/23 07:24 [facility] (Rec: 03/15/23 12:17 [facility] [id number]) Out-Patient Physical Therapy Visit Information Visit Information Visit Type Initial Evaluation Visit Note 03/29 Visit Start Time 08:20 Visit Stop Time 09:05 Total Visit Minutes 45 Visit Number 1 Number of BULK LOADER Visits 0 PT-OP-B Current Condition Start: 03/02/23 17:00 Freq: Status: Active Protocol: Document 03/15/23 07:24 [facility] (Rec: 03/15/23 12:17 [facility] [id number]) Current Condition History of Current Condition Current Complaints R hip pain w/R FAITH ant planned 03/21/23 History of Current Condition Pt reports he was set to get his hip replaced prior to COV but that got cancelled. Pt has pain in R lat hip. Walking is uncomfortable and doesn't work. It catches and sometimes he gets stabs of pain and leg would give way. He fell a few times and sometimes was able to grab ahold of something. Pt notes sometimes pain wakes him at night. Certain movements including in/out of car cause stabbing pain. Has been using a SPC for about 3 years ago when he started getting the catches and give aways. Pt reports 2 [place] w/cabinet on side and has multilevel home but doens't need to get into the basement. His son is living with him and his . His son will be in and out and be able help out. Pt reports his is nearly blind so is limited in how much she can help. She does do some of the insulation blower. He typically does most of the cooking but son will be able to take that over. Pt has walk in shower w/ grab bars w/built in seat and moveable one w/a back to it and rails on the side of it. He got a toilet seat riser but got the wrong size. He is planning ot take that back to get a different one. Pt has a cane and has a 4WW that he can help take the weight off and he does use it some in the house. He has a grabber, long handle shoe horn, and long handle shower brush. Treatment Goals Patient/Caregiver Goals Know what he can do after surgery PT-OP-C Subjective Start: 03/02/23 17:00 Freq: Status: Active Protocol: Document 03/15/23 07:24 [facility] (Rec: 03/15/23 13:50 [facility] [id number]) Patient Questionnaires Lower Extremity Functional Scale LEFS Score 26/80 PT-OP-G Mobility & Gait Start: 03/02/23 17:00 Freq: Status: Active Protocol: Document 03/15/23 07:24 [facility] (Rec: 03/15/23 12:17 [facility] [id number]) OP Gait Assessment Comments Gait Comments Pt has significant dec stance time on RLE and uses SPC. He has trendelenburg gain on R PT-OP-M Strength Start: 03/02/23 17:00 Freq: Status: Active Protocol: Document 03/15/23 07:24 [facility] (Rec: 03/15/23 12:17 [facility] [id number]) Hip Strength Hip Manual Muscle Testing Right Flexion (L2) 3+ Fair+ External Rotation 3+ Fair+ Internal Rotation 3- Fair- Left Flexion (L2) 4 Good External Rotation 4 Good Internal Rotation 4+ Good+ Knee Strength Knee Manual Muscle Testing Right Flexion (S2) 3+ Fair+ Extension (L3) 3+ Fair+ Left Flexion (S2) 4 Good Extension (L3) 4 Good Ankle/Foot Strength Ankle and Foot Manual Muscle Testing Right Dorsiflexion (L4) 4 Good Plantarflexion (S1) 4 Good Comments tested seated B Left Dorsiflexion (L4) 5 Normal Plantarflexion (S1) 5 Normal PT-OP-Q Treatments Start: 03/02/23 17:00 Freq: Status: Active Protocol: Document 03/15/23 07:24 [facility] (Rec: 03/15/23 12:17 [facility] [id number]) Therapeutic Activity Therapeutic Activity bed mobility Comments in/out of bed w/use of cane and w/o cane . instructed for leaning back to lift leg and scoot in sit to stand Comments 2x w/cues for 1 hand on walker and one on surface Gait Training Gait Activity stairs Comments step to up and down w/walker backwards up and fwd down w/ guardin gof walker x3 steps' up /down step to w/cane and rail FWW Comments 100ft w/cues for step to gait and how to set up walker height Self-Care/Home Management Treatment Education Other Education 15 min: on ant FAITH packet info (HEP, safety paper, DME (edu to get FWW and different raised toilet seat along w/ sock aide), discussed scheduling further post op PT appts, edu re: FWW vs 4ww and how FWW can be helpful initially. Edu to practice using DME prior to surgery like shower seat. PT-OP-T Assessment and Plan Start: 03/02/23 17:00 Freq: Status: Active Protocol: Document 03/15/23 07:24 [facility] (Rec: 03/15/23 12:17 [facility] [id number]) Physical Therapy Assessment Rehab Potential Rehabilitation Potential Excellent Evaluation Complexity Number of Personal Factors/Comorbidities 3 or More Number of Body Systems Impaired 4 or More Clinical Presentation at Evaluation Evolving Impairments Impairments Activity Tolerance,Balance, Functional Activities, Functional Mobility,Gait,Pain, Posture,ROM,Soft Tissue Mobility,Strength Goals 1 Product Craftsman Goal (LTG) Pt will be safe w/use of walker and w/up/down stairs w/ FWW and/or cane in order to allow improve recovery after surgery LTG Duration 04/26/23 Assessment Summary Assessment Pt presents w/significant R hip pain that limits his gait and overall mobility w/sharp pains taht have caused his RLE to give out. He is now pursuing surgery and is scheduled on 03/21/23 to get R FAITH ant. Pt has good home support and already has most DME and plans to get DME recommended by PT. He would benefit from skilled PT in order to educate him as needed for surgery. Pt demonstrated good understanding after this visit, but if he should need further education, pt to return to PT. Physical Therapy Plan Frequency and Duration Frequency of Treatment 1x/Week Duration of treatment (weeks) 6 Plan of Care Start Date 03/15/23 Plan of Care End Date 04/26/23 Therapeutic Interventions Therapeutic Interventions Balance Training,Gait Training ,Home Exercise Program,Joint Mobilizations,Manual Therapy, Neuromuscular Re-education, Orthotic/Prosthetic Management ,Patient/Caregiver Education, Self-Care/Home Management,Soft Tissue Mobilization,Taping, Therapeutic Activities, Therapeutic Exercises Modalities Cold Pack/Ice Massage,Electric Stimulation,Hot Packs, Infrared Therapy,Ultrasound Next Visit Focus/Plan Next Note Type Treatment Note
--- NOTE | 2023-03-15 14:07 | PT.OPPOC ---
Physical, Occupational & Speech Therapy At [facility] Current Diagnoses Unilateral primary osteoarthritis, right hip (03/15/23) Muscle weakness (generalized) (03/15/23) Difficulty in walking, not elsewhere classified (03/15/23) Visit Care Team Role Provider Type Tiago May MD Family Provider Physician Primary Care Provider Specialty: Family Practice Address: [address] [place] [address], [facility] [address], [address] Email: [email or web address] Izabel Kirby MD Attending Provider Physician Referring Provider Specialty: Orthopedics Orthopedic Surgery Address: [address] [place] [address], [place], [address] Email: [email or web address] Plan Of Care PT-OP-T Assessment and Plan Start: 03/02/23 17:00 Freq: Status: Active Protocol: Document 03/15/23 07:24 [facility] (Rec: 03/15/23 12:17 [facility] [id number]) Physical Therapy Assessment Rehab Potential Rehabilitation Potential Excellent Evaluation Complexity Number of Personal Factors/Comorbidities 3 or More Number of Body Systems Impaired 4 or More Clinical Presentation at Evaluation Evolving Impairments Impairments Activity Tolerance,Balance, Functional Activities, Functional Mobility,Gait,Pain, Posture,ROM,Soft Tissue Mobility,Strength Goals 1 Nursing Home Goal (LTG) Pt will be safe w/use of walker and w/up/down stairs w/ FWW and/or cane in order to allow improve recovery after surgery LTG Duration 04/26/23 Assessment Summary Assessment Pt presents w/significant R hip pain that limits his gait and overall mobility w/sharp pains taht have caused his RLE to give out. He is now pursuing surgery and is scheduled on 03/21/23 to get R FAITH ant. Pt has good home support and already has most DME and plans to get DME recommended by PT. He would benefit from skilled PT in order to educate him as needed for surgery. Pt demonstrated good understanding after this visit, but if he should need further education, pt to return to PT. Physical Therapy Plan Frequency and Duration Frequency of Treatment 1x/Week Duration of treatment (weeks) 6 Plan of Care Start Date 03/15/23 Plan of Care End Date 04/26/23 Therapeutic Interventions Therapeutic Interventions Balance Training,Gait Training ,Home Exercise Program,Joint Mobilizations,Manual Therapy, Neuromuscular Re-education, Orthotic/Prosthetic Management ,Patient/Caregiver Education, Self-Care/Home Management,Soft Tissue Mobilization,Taping, Therapeutic Activities, Therapeutic Exercises Modalities Cold Pack/Ice Massage,Electric Stimulation,Hot Packs, Infrared Therapy,Ultrasound Next Visit Focus/Plan Next Note Type Treatment Note Plan of Care Dates Plan of Care Start Date 03/15/23 Plan of Care End Date 04/26/23 Electronically Signed by: Waleska Zacarias, PT 03/15/23 6202 If you are in agreement with this Plan of Care, please return a signed and dated copy. I have reviewed this Plan of Care and certify that the skilled therapy services above are required to meet the patient?s needs. Physician Signature Date Printed Name and Credentials Clinical Instructor Signature Printed Name and Credentials
--- NOTE | 2023-03-28 16:34 | PT.OTRE ---
Current Diagnoses Unilateral primary osteoarthritis, right hip (03/28/23) Muscle weakness (generalized) (03/28/23) Difficulty in walking, not elsewhere classified (03/28/23) Past Medical History (Last Reviewed 03/23/23 @ 11:46 by SHANAE Benjamin) Anesthesia complication Aortic regurgitation Atrial fibrillation Brown's syndrome CAD (coronary artery disease) Cataract Dilated cardiomyopathy Hypercalcemia Hyperlipidemia Hyperparathyroidism Hypertension Kidney stones Non-sustained ventricular tachycardia PAF (paroxysmal atrial fibrillation) Polio Prostate cancer Scarlet fever Status post aorto-coronary artery bypass graft Ventral incisional hernia without obstruction or gangrene Surgical History (Last Reviewed 03/23/23 @ 11:46 by SHANAE Benjamin) H/O arthroscopic knee surgery H/O radical prostatectomy History of heart bypass surgery (2008) History of hernia repair History of partial thyroidectomy History of tonsillectomy Hx of inguinal hernia surgery S/P right knee arthroscopy Status post coronary artery bypass graft (2008) Status post transurethral resection of prostate Visit Care Team Role Provider Type Tiago May MD Family Provider Physician Primary Care Provider Specialty: [facility] Address: [address] [place] [address], [address], [address] Email: [email or web address] Izabel Kirby MD Attending Provider Physician Referring Provider Specialty: Orthopedics Orthopedic Surgery Address: [address] [place] [address], [address] Email: [email or web address] Physical Therapy Re-Evaluation PT-OP-A Visit Information Start: 03/02/23 17:00 Freq: Status: Active Protocol: Document 03/28/23 14:33 [facility] (Rec: 03/28/23 16:34 [facility] [id number]) Out-Patient Physical Therapy Visit Information Visit Information Visit Type Re-Evaluation Visit Note 03/29 Visit Start Time 14:33 Visit Stop Time 15:15 Total Visit Minutes 42 Visit Number 2 Number of BOBBIN WINDER Visits 0 PT-OP-B Current Condition Start: 03/02/23 17:00 Freq: Status: Active Protocol: Document 03/28/23 14:33 [facility] (Rec: 03/28/23 16:34 [facility] [id number]) Current Condition History of Current Condition Current Complaints R hip pain w/R FAITH ant planned 03/21/23 History of Current Condition 03/28-FAITH ant and he thinks hemay have gotten a hematoma. Hip is feeling good but R thigh has been painful. It is getting better. Pt was checked for a clot and it was all negative. He has his first follow up on . Pt using 4WW around the house. This is his first time going out of the house except going to the hospital the day for check for clot. He has been indep w/dressing and bathing. He has been walking around and then most of his time in his chair but gets up every hour. Son is helping w/ meals. IE:Pt reports he was set to get his hip replaced prior to COV but that got cancelled. Pt has pain in R lat hip. Walking is uncomfortable and doesn't work. It catches and sometimes he gets stabs of pain and leg would give way. He fell a few times and sometimes was able to grab ahold of something. Pt notes sometimes pain wakes him at night. Certain movements including in/out of car cause stabbing pain. Has been using a SPC for about 3 years ago when he started getting the catches and give aways. Pt reports 2 [place] w/cabinet on side and has multilevel home but doens't need to get into the basement. His son is living with him and his . His son will be in and out and be able help out. Pt reports his is nearly blind so is limited in how much she can help. She does do some of the investment sales assistant. He typically does most of the cooking but son will be able to take that over. Pt has walk in shower w/ grab bars w/built in seat and moveable one w/a back to it and rails on the side of it. He got a toilet seat riser but got the wrong size. He is planning ot take that back to get a different one. Pt has a cane and has a 4WW that he can help take the weight off and he does use it some in the house. He has a grabber, long handle shoe horn, and long handle shower brush. last oxy 48 hours ago Treatment Goals Patient/Caregiver Goals Be able to walk without a cane without pain, walk as far as his stamina will allow; be able to climb stairs reciprocally w/o pain or difficulty PT-OP-C Subjective Start: 03/02/23 17:00 Freq: Status: Active Protocol: Document 03/28/23 14:33 [facility] (Rec: 03/28/23 16:34 [facility] [id number]) OP-PT Pain Assessment Location R thigh Pain Location Details ant thigh R Scale Used best 2-3; worst 5 Description Aching Frequency Constant Pain Aggravating Factors Activity,Standing,Walking Other Pain Aggravating Factors palpation Pain Alleviating Factors Cold Other Pain Alleviating Factors tylenol PT-OP-F Manual Assessment Start: 03/02/23 17:00 Freq: Status: Active Protocol: Document 03/28/23 14:33 [facility] (Rec: 03/28/23 16:34 [facility] [id number]) Manual Assessments Soft Tissue Assessment Soft Tissue Mobility Assessment swelling throguhout RLE and into calf and tenderness on ant aspect of thigh thrugh quad, ITB and add PT-OP-G Mobility & Gait Start: 03/02/23 17:00 Freq: Status: Active Protocol: Document 03/28/23 14:33 [facility] (Rec: 03/28/23 16:34 [facility] [id number]) OP Gait Assessment Comments Gait Comments pt amb w/spc w/dec stance time RLE and slight lat lean over RLE PT-OP-M Strength Start: 03/02/23 17:00 Freq: Status: Active Protocol: Document 03/28/23 14:33 [facility] (Rec: 03/28/23 16:34 [facility] [id number]) Hip Strength Hip Manual Muscle Testing Right Flexion (L2) 3- Fair- External Rotation 3+ Fair+ Internal Rotation 3+ Fair+ Comments rot tested neutral Left Flexion (L2) 4+ Good+ External Rotation 3+ Fair+ Internal Rotation 5 Normal Knee Strength Knee Manual Muscle Testing Right Flexion (S2) 4- Good- Extension (L3) 4- Good- Left Flexion (S2) 4 Good Extension (L3) 4 Good Ankle/Foot Strength Ankle and Foot Manual Muscle Testing Right Dorsiflexion (L4) 4 Good Plantarflexion (S1) 4 Good Comments tested seated B Left Dorsiflexion (L4) 5 Normal Plantarflexion (S1) 5 Normal PT-OP-Q Treatments Start: 03/02/23 17:00 Freq: Status: Active Protocol: Document 03/28/23 14:33 [facility] (Rec: 03/28/23 16:34 [facility] [id number]) Cardio Equipment Recumbent Elliptical (Biodex) Duration (Minutes) 5 Resistance 2 Seat Position 10 Gym Equipment Shuttle Recovery Unilateral Squats Details R Resistance 25 Shuttle Recovery Platform Stable Reps/Time 15 Bilateral Squats Resistance 50 (2 blue) Shuttle Recovery Platform Stable Reps/Time 20 Therapeutic Exercises Supine Exercises FAITH exercises Supine Exercise Name 1. APs 2. quad sets 3. glute sets 4. heel slides Side bilateral Reps/Minutes 8 ea Comments all B except heel slides Standing Exercises knee flex Standing Exercise Name avoiding ext of hip Side bilateral Reps/Minutes 10 ea march Side bilateral Equipment Used rail Reps/Minutes 10 hip abd Side bilateral Reps/Minutes 15 heel raises Side bilateral Reps/Minutes 20 PT-OP-T Assessment and Plan Start: 03/02/23 17:00 Freq: Status: Active Protocol: Document 03/28/23 14:33 [facility] (Rec: 03/28/23 16:34 [facility] [id number]) Physical Therapy Assessment Goals balance Ob Scrub Tech Goal (LTG) Pt will be able to do SLS for 5 sec B to show improved balance LTG Duration 06/06/23 strength Ob Scrub Tech Goal (LTG) Pt will be be able to score at least 4+/5 on all BLE MMT to show improved strenght to allow greater ease w/daily activities. LTG Duration 06/15/23 stairs Short Term Goal (STG) Pt will be able to reciprocate up stairs w/o inc pain. STG Duration 04/28/23 Ob Scrub Tech Goal (LTG) Pt will be able to reciprocate down stairs w/o inc pain. LTG Duration 06/06/23 1 Ob Scrub Tech Goal (LTG) Pt will be able to return to walking and will be able to do up to 1 mile walks w/o hip pain greater than 1/10. LTG Duration 06/06/23 Assessment Summary Assessment Pt returns 1 wk s/p R FAITH ant with overall good pain control w/improved gait pattern compared to prior to surgery, but still limited wt acceptance on RLE. He shows good understanding w/HEP given at hospital and in pre-PT and is walking every hour. He does have signfiicant RLE swelling and pt and son are encouraged to ask PA at appt if okay to use thigh high compression sock. Pt has significant weakness as expected after prolonged pain and R FAITH and would benefit from skilled PT to return to more active lifestyle. Physical Therapy Plan Frequency and Duration Frequency of Treatment 2x/Week Duration of treatment (weeks) 10 Plan of Care Start Date 03/28/23 Plan of Care End Date 06/06/23 Therapeutic Interventions Therapeutic Interventions Balance Training,Gait Training ,Home Exercise Program,Joint Mobilizations,Manual Therapy, Neuromuscular Re-education, Orthotic/Prosthetic Management ,Patient/Caregiver Education, Self-Care/Home Management,Soft Tissue Mobilization,Taping, Therapeutic Activities, Therapeutic Exercises Modalities Cold Pack/Ice Massage,Electric Stimulation,Hot Packs, Infrared Therapy,Ultrasound Next Visit Focus/Plan Next Note Type Treatment Note Next Visit Plan work on hip strength and start to progress into balance, gently work into ant hip soft tissue.
--- NOTE | 2023-03-28 16:34 | PT.OPPOC ---
Physical, Occupational & Speech Therapy At [facility] Current Diagnoses Unilateral primary osteoarthritis, right hip (03/28/23) Muscle weakness (generalized) (03/28/23) Difficulty in walking, not elsewhere classified (03/28/23) Visit Care Team Role Provider Type Tiago May MD Family Provider Physician Primary Care Provider Specialty: Family Practice Address: [address] [place] [address], [facility] [address], [address] Email: [email or web address] Izabel Kirby MD Attending Provider Physician Referring Provider Specialty: Orthopedics Orthopedic Surgery Address: [address] [place] [address], [place], [address] Email: [email or web address] Plan Of Care PT-OP-T Assessment and Plan Start: 03/02/23 17:00 Freq: Status: Active Protocol: Document 03/28/23 14:33 [facility] (Rec: 03/28/23 16:34 [facility] [id number]) Physical Therapy Assessment Goals balance Half-Way Goal (LTG) Pt will be able to do SLS for 5 sec B to show improved balance LTG Duration 06/06/23 strength General Labor Goal (LTG) Pt will be be able to score at least 4+/5 on all BLE MMT to show improved strenght to allow greater ease w/daily activities. LTG Duration 06/15/23 stairs Short Term Goal (STG) Pt will be able to reciprocate up stairs w/o inc pain. STG Duration 04/28/23 General Labor Goal (LTG) Pt will be able to reciprocate down stairs w/o inc pain. LTG Duration 06/06/23 1 General Labor Goal (LTG) Pt will be able to return to walking and will be able to do up to 1 mile walks w/o hip pain greater than 1/10. LTG Duration 06/06/23 Assessment Summary Assessment Pt returns 1 wk s/p R FAITH ant with overall good pain control w/improved gait pattern compared to prior to surgery, but still limited wt acceptance on RLE. He shows good understanding w/HEP given at hospital and in pre-PT and is walking every hour. He does have signfiicant RLE swelling and pt and son are encouraged to ask PA at appt if okay to use thigh high compression sock. Pt has significant weakness as expected after prolonged pain and R FAITH and would benefit from skilled PT to return to more active lifestyle. Physical Therapy Plan Frequency and Duration Frequency of Treatment 2x/Week Duration of treatment (weeks) 10 Plan of Care Start Date 03/28/23 Plan of Care End Date 06/06/23 Therapeutic Interventions Therapeutic Interventions Balance Training,Gait Training ,Home Exercise Program,Joint Mobilizations,Manual Therapy, Neuromuscular Re-education, Orthotic/Prosthetic Management ,Patient/Caregiver Education, Self-Care/Home Management,Soft Tissue Mobilization,Taping, Therapeutic Activities, Therapeutic Exercises Modalities Cold Pack/Ice Massage,Electric Stimulation,Hot Packs, Infrared Therapy,Ultrasound Next Visit Focus/Plan Next Note Type Treatment Note Next Visit Plan work on hip strength and start to progress into balance, gently work into ant hip soft tissue. Plan of Care Dates Plan of Care Start Date 03/28/23 Plan of Care End Date 06/06/23 Electronically Signed by: Waleska Zacarias, PT 03/28/23 7144 If you are in agreement with this Plan of Care, please return a signed and dated copy. I have reviewed this Plan of Care and certify that the skilled therapy services above are required to meet the patient?s needs. Physician Signature Date Printed Name and Credentials Clinical Instructor Signature Printed Name and Credentials
--- NOTE | 2023-03-30 12:39 | PT.OTN ---
Current Diagnoses Unilateral primary osteoarthritis, right hip (03/30/23) Muscle weakness (generalized) (03/30/23) Difficulty in walking, not elsewhere classified (03/30/23) Physical Therapy Treatment Note PT-OP-A Visit Information Start: 03/02/23 17:00 Freq: Status: Active Protocol: Document 03/30/23 09:44 [facility] (Rec: 03/30/23 10:31 [facility] [id number]) Out-Patient Physical Therapy Visit Information Visit Information Visit Type Treatment Note Visit Start Time 09:47 Visit Stop Time 10:29 Total Visit Minutes 42 Visit Number 3 Number of WAREHOUSE CLERK Visits 1 PT-OP-B Current Condition Start: 03/02/23 17:00 Freq: Status: Active Protocol: Document 03/28/23 14:33 [facility] (Rec: 03/28/23 16:34 [facility] [id number]) Current Condition History of Current Condition Current Complaints R hip pain w/R FAITH ant planned 03/21/23 History of Current Condition 03/28-FAITH ant and he thinks hemay have gotten a hematoma. Hip is feeling good but R thigh has been painful. It is getting better. Pt was checked for a clot and it was all negative. He has his first follow up on . Pt using 4WW around the house. This is his first time going out of the house except going to the hospital the day for check for clot. He has been indep w/dressing and bathing. He has been walking around and then most of his time in his chair but gets up every hour. Son is helping w/ meals. IE:Pt reports he was set to get his hip replaced prior to COVID but that got cancelled. Pt has pain in R lat hip. Walking is uncomfortable and doesn't work. It catches and sometimes he gets stabs of pain and leg would give way. He fell a few times and sometimes was able to grab ahold of something. Pt notes sometimes pain wakes him at night. Certain movements including in/out of car cause stabbing pain. Has been using a SPC for about 3 years ago when he started getting the catches and give aways. Pt reports 2 [place] w/cabinet on side and has multilevel home but doens't need to get into the basement. His son is living with him and his . His son will be in and out and be able help out. Pt reports his is nearly blind so is limited in how much she can help. She does do some of the vocational ed instructor. He typically does most of the cooking but son will be able to take that over. Pt has walk in shower w/ grab bars w/built in seat and moveable one w/a back to it and rails on the side of it. He got a toilet seat riser but got the wrong size. He is planning ot take that back to get a different one. Pt has a cane and has a 4WW that he can help take the weight off and he does use it some in the house. He has a grabber, long handle shoe horn, and long handle shower brush. last oxy 48 hours ago Treatment Goals Patient/Caregiver Goals Be able to walk without a cane without pain, walk as far as his stamina will allow; be able to climb stairs reciprocally w/o pain or difficulty PT-OP-C Subjective Start: 03/02/23 17:00 Freq: Status: Active Protocol: Document 03/30/23 09:44 SW (Rec: 03/30/23 10:31 [id number]) OP-PT Subjective Patient Comments Patient Comments Pt reports had his leg down too much yesterday, increased swelling, improved overnight. Has done some icing yesterday, not as much. Pain level 1-2/ 10 mainly in quad. No more stab, stop pains that were present prior to surgery. PT-OP-F Manual Assessment Start: 03/02/23 17:00 Freq: Status: Active Protocol: Document 03/28/23 14:33 [facility] (Rec: 03/28/23 16:34 [facility] [id number]) Manual Assessments Soft Tissue Assessment Soft Tissue Mobility Assessment swelling throguhout RLE and into calf and tenderness on ant aspect of thigh thrugh quad, ITB and add PT-OP-G Mobility & Gait Start: 03/02/23 17:00 Freq: Status: Active Protocol: Document 03/28/23 14:33 [facility] (Rec: 03/28/23 16:34 [facility] [id number]) OP Gait Assessment Comments Gait Comments pt amb w/spc w/dec stance time RLE and slight lat lean over RLE PT-OP-M Strength Start: 03/02/23 17:00 Freq: Status: Active Protocol: Document 03/28/23 14:33 [facility] (Rec: 03/28/23 16:34 [facility] [id number]) Hip Strength Hip Manual Muscle Testing Right Flexion (L2) 3- Fair- External Rotation 3+ Fair+ Internal Rotation 3+ Fair+ Comments rot tested neutral Left Flexion (L2) 4+ Good+ External Rotation 3+ Fair+ Internal Rotation 5 Normal Knee Strength Knee Manual Muscle Testing Right Flexion (S2) 4- Good- Extension (L3) 4- Good- Left Flexion (S2) 4 Good Extension (L3) 4 Good Ankle/Foot Strength Ankle and Foot Manual Muscle Testing Right Dorsiflexion (L4) 4 Good Plantarflexion (S1) 4 Good Comments tested seated B Left Dorsiflexion (L4) 5 Normal Plantarflexion (S1) 5 Normal PT-OP-Q Treatments Start: 03/02/23 17:00 Freq: Status: Active Protocol: Document 03/30/23 09:44 SW (Rec: 03/30/23 10:31 SW [id number]) Cardio Equipment Recumbent Elliptical (Biodex) Duration (Minutes) 5 Resistance 2 Seat Position 10 Gym Equipment Shuttle Recovery Unilateral Squats Details R Resistance 25 Shuttle Recovery Platform Stable Reps/Time 15 Bilateral Squats Resistance 50 (2 blue) Shuttle Recovery Platform Stable Reps/Time 20 Therapeutic Exercises Supine Exercises FAITH exercises Supine Exercise Name 1. APs 2. quad sets 3. glute sets 4. heel slides Side bilateral Reps/Minutes 8 ea Comments all B except heel slides Standing Exercises knee flex Standing Exercise Name avoiding ext of hip Side bilateral Reps/Minutes 5 ea march Side bilateral Equipment Used rail Reps/Minutes 10 hip abd Side bilateral Reps/Minutes 15 heel raises Side bilateral Reps/Minutes 20 PT-OP-T Assessment and Plan Start: 03/02/23 17:00 Freq: Status: Active Protocol: Document 03/30/23 09:44 [facility] (Rec: 03/30/23 10:31 SW [id number]) Physical Therapy Assessment Goals balance Felt Hat Pouncing Operator Hand Goal (LTG) Pt will be able to do SLS for 5 sec B to show improved balance LTG Duration 06/06/23 strength [facility] Goal (LTG) Pt will be be able to score at least 4+/5 on all BLE MMT to show improved strenght to allow greater ease w/daily activities. LTG Duration 06/15/23 stairs Short Term Goal (STG) Pt will be able to reciprocate up stairs w/o inc pain. STG Duration 04/28/23 Felt Hat Pouncing Operator Hand Goal (LTG) Pt will be able to reciprocate down stairs w/o inc pain. LTG Duration 06/06/23 1 [facility] Goal (LTG) Pt will be able to return to walking and will be able to do up to 1 mile walks w/o hip pain greater than 1/10. LTG Duration 06/06/23 Assessment Summary Assessment Continued post op hip strengthening exercises this session. Pt c/o some hip pn during flexion exercise, otherwise pt tolerated exercises well. Verbal/tactile cues for alignment of hip/ knee during shuttle recovery, good carryover. Pt reports he has his first followup with surgeon. Plan to progress into balance next session. Physical Therapy Plan Frequency and Duration Frequency of Treatment 2x/Week Duration of treatment (weeks) 10 Plan of Care Start Date 03/28/23 Plan of Care End Date 06/06/23 Therapeutic Interventions Therapeutic Interventions Balance Training,Gait Training ,Home Exercise Program,Joint Mobilizations,Manual Therapy, Neuromuscular Re-education, Orthotic/Prosthetic Management ,Patient/Caregiver Education, Self-Care/Home Management,Soft Tissue Mobilization,Taping, Therapeutic Activities, Therapeutic Exercises Modalities Cold Pack/Ice Massage,Electric Stimulation,Hot Packs, Infrared Therapy,Ultrasound Next Visit Focus/Plan Next Note Type Treatment Note Next Visit Plan work on hip strength and start to progress into balance, gently work into ant hip soft tissue.
--- NOTE | 2023-04-04 10:35 | PT.OTN ---
Current Diagnoses Unilateral primary osteoarthritis, right hip (04/04/23) Muscle weakness (generalized) (04/04/23) Difficulty in walking, not elsewhere classified (04/04/23) Physical Therapy Treatment Note PT-OP-A Visit Information Start: 03/02/23 17:00 Freq: Status: Active Protocol: Document 04/04/23 08:53 [facility] (Rec: 04/04/23 10:30 [facility] [id number]) Out-Patient Physical Therapy Visit Information Visit Information Visit Type Treatment Note Visit Note 05/27 Visit Start Time 10:00 Visit Stop Time 10:30 Total Visit Minutes 30 Visit Number 4 Number of CHAIRMAN Visits 0 PT-OP-B Current Condition Start: 03/02/23 17:00 Freq: Status: Active Protocol: Document 03/28/23 14:33 [facility] (Rec: 03/28/23 16:34 [facility] [id number]) Current Condition History of Current Condition Current Complaints R hip pain w/R FAITH ant planned 03/21/23 History of Current Condition 03/28-FAITH ant and he thinks hemay have gotten a hematoma. Hip is feeling good but R thigh has been painful. It is getting better. Pt was checked for a clot and it was all negative. He has his first follow up on . Pt using 4WW around the house. This is his first time going out of the house except going to the hospital the day for check for clot. He has been indep w/dressing and bathing. He has been walking around and then most of his time in his chair but gets up every hour. Son is helping w/ meals. IE:Pt reports he was set to get his hip replaced prior to COVID but that got cancelled. Pt has pain in R lat hip. Walking is uncomfortable and doesn't work. It catches and sometimes he gets stabs of pain and leg would give way. He fell a few times and sometimes was able to grab ahold of something. Pt notes sometimes pain wakes him at night. Certain movements including in/out of car cause stabbing pain. Has been using a SPC for about 3 years ago when he started getting the catches and give aways. Pt reports 2 [place] w/cabinet on side and has multilevel home but doens't need to get into the basement. His son is living with him and his . His son will be in and out and be able help out. Pt reports his is nearly blind so is limited in how much she can help. She does do some of the research chief engineer. He typically does most of the cooking but son will be able to take that over. Pt has walk in shower w/ grab bars w/built in seat and moveable one w/a back to it and rails on the side of it. He got a toilet seat riser but got the wrong size. He is planning ot take that back to get a different one. Pt has a cane and has a 4WW that he can help take the weight off and he does use it some in the house. He has a grabber, long handle shoe horn, and long handle shower brush. last oxy 48 hours ago Treatment Goals Patient/Caregiver Goals Be able to walk without a cane without pain, walk as far as his stamina will allow; be able to climb stairs reciprocally w/o pain or difficulty PT-OP-C Subjective Start: 03/02/23 17:00 Freq: Status: Active Protocol: Document 04/04/23 08:53 [facility] (Rec: 04/04/23 10:30 [facility] [id number]) OP-PT Subjective Patient Comments Patient Comments Pt reports hip is better every day Patient Reported Progress Improving PT-OP-F Manual Assessment Start: 03/02/23 17:00 Freq: Status: Active Protocol: Document 03/28/23 14:33 [facility] (Rec: 03/28/23 16:34 [facility] [id number]) Manual Assessments Soft Tissue Assessment Soft Tissue Mobility Assessment swelling throguhout RLE and into calf and tenderness on ant aspect of thigh thrugh quad, ITB and add PT-OP-G Mobility & Gait Start: 03/02/23 17:00 Freq: Status: Active Protocol: Document 03/28/23 14:33 [facility] (Rec: 03/28/23 16:34 [facility] [id number]) OP Gait Assessment Comments Gait Comments pt amb w/spc w/dec stance time RLE and slight lat lean over RLE PT-OP-M Strength Start: 03/02/23 17:00 Freq: Status: Active Protocol: Document 03/28/23 14:33 [facility] (Rec: 03/28/23 16:34 [facility] [id number]) Hip Strength Hip Manual Muscle Testing Right Flexion (L2) 3- Fair- External Rotation 3+ Fair+ Internal Rotation 3+ Fair+ Comments rot tested neutral Left Flexion (L2) 4+ Good+ External Rotation 3+ Fair+ Internal Rotation 5 Normal Knee Strength Knee Manual Muscle Testing Right Flexion (S2) 4- Good- Extension (L3) 4- Good- Left Flexion (S2) 4 Good Extension (L3) 4 Good Ankle/Foot Strength Ankle and Foot Manual Muscle Testing Right Dorsiflexion (L4) 4 Good Plantarflexion (S1) 4 Good Comments tested seated B Left Dorsiflexion (L4) 5 Normal Plantarflexion (S1) 5 Normal PT-OP-Q Treatments Start: 03/02/23 17:00 Freq: Status: Active Protocol: Document 04/04/23 08:53 [facility] (Rec: 04/04/23 10:30 [facility] [id number]) Gym Equipment Shuttle Recovery Unilateral Squats Details R Resistance 37 (1 dark blue) Shuttle Recovery Platform Stable Reps/Time 15 Bilateral Squats Resistance 75 (3 dark blue) Shuttle Recovery Platform Stable Reps/Time 20 Shuttle Balance blue clips Details balance rail prn- EC & head turn trials Comments Fwd & side: WBOS & NBOS Therapeutic Exercises Standing Exercises squat Standing Exercise Name sit to stand Side bilateral Reps/Minutes 10 step up Standing Exercise Name 1.fwd 2. side Side right Equipment Used rail and cane Reps/Minutes 15 knee flex Standing Exercise Name avoiding ext of hip Side bilateral Equipment Used 4# ankle wts Reps/Minutes 15 ea hip abd Standing Exercise Name sidesteps Side bilateral Equipment Used lvl 1 at ankles Reps/Minutes 20ftx2 ea heel raises Side bilateral Reps/Minutes 15 Neuro Re-Education Treatment Balance Activities SLS Comments 1. mod on R w/L on dynadics 2. SLS trials w/opp toe down B PT-OP-T Assessment and Plan Start: 03/02/23 17:00 Freq: Status: Active Protocol: Document 04/04/23 08:53 [facility] (Rec: 04/04/23 10:30 [facility] [id number]) Physical Therapy Assessment Goals balance Alf Goal (LTG) Pt will be able to do SLS for 5 sec B to show improved balance LTG Duration 06/06/23 strength Inspector Balance Bridge Goal (LTG) Pt will be be able to score at least 4+/5 on all BLE MMT to show improved strenght to allow greater ease w/daily activities. LTG Duration 06/15/23 stairs Short Term Goal (STG) Pt will be able to reciprocate up stairs w/o inc pain. STG Duration 04/28/23 Alf Goal (LTG) Pt will be able to reciprocate down stairs w/o inc pain. LTG Duration 06/06/23 1 Inspector Balance Bridge Goal (LTG) Pt will be able to return to walking and will be able to do up to 1 mile walks w/o hip pain greater than 1/10. LTG Duration 06/06/23 Assessment Summary Assessment Pt did well with advancement of strengthening today and tolerated balance well but was challenged by this. He did have difficulty w/step ups and unable to do 5 in but did well w/4 in w/outside support Physical Therapy Plan Frequency and Duration Frequency of Treatment 2x/Week Duration of treatment (weeks) 10 Plan of Care Start Date 03/28/23 Plan of Care End Date 06/06/23 Next Visit Focus/Plan Next Note Type Treatment Note Next Visit Plan work on hip strength and cont to progress into balance, gently work into ant hip soft tissue. advance leg press wt
--- NOTE | 2023-04-11 18:13 | PT.OTN ---
Current Diagnoses Unilateral primary osteoarthritis, right hip (04/11/23) Muscle weakness (generalized) (04/11/23) Difficulty in walking, not elsewhere classified (04/11/23) Physical Therapy Treatment Note PT-OP-A Visit Information Start: 03/02/23 17:00 Freq: Status: Active Protocol: Document 04/11/23 16:49 [facility] (Rec: 04/11/23 18:08 [facility] [id number]) Out-Patient Physical Therapy Visit Information Visit Information Visit Type Treatment Note Visit Note 06/27 Visit Start Time 16:48 Visit Stop Time 17:32 Visit Number 5 Number of DIVISION SERVICE MANAGER Visits 0 PT-OP-B Current Condition Start: 03/02/23 17:00 Freq: Status: Active Protocol: Document 03/28/23 14:33 [facility] (Rec: 03/28/23 16:34 [facility] [id number]) Current Condition History of Current Condition Current Complaints R hip pain w/R FAITH ant planned 03/21/23 History of Current Condition 03/28-FAITH ant and he thinks hemay have gotten a hematoma. Hip is feeling good but R thigh has been painful. It is getting better. Pt was checked for a clot and it was all negative. He has his first follow up on . Pt using 4WW around the house. This is his first time going out of the house except going to the hospital the 2nd day for check for clot. He has been indep w/dressing and bathing. He has been walking around and then most of his time in his chair but gets up every hour. Son is helping w/ meals. IE:Pt reports he was set to get his hip replaced prior to COVID but that got cancelled. Pt has pain in R lat hip. Walking is uncomfortable and doesn't work. It catches and sometimes he gets stabs of pain and leg would give way. He fell a few times and sometimes was able to grab ahold of something. Pt notes sometimes pain wakes him at night. Certain movements including in/out of car cause stabbing pain. Has been using a SPC for about 3 years ago when he started getting the catches and give aways. Pt reports 2 [place] w/cabinet on side and has multilevel home but doens't need to get into the basement. His son is living with him and his . His son will be in and out and be able help out. Pt reports his is nearly blind so is limited in how much she can help. 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 He typically does most of the cooking but son will be able to take that over. Pt has walk in shower w/ grab bars w/built in seat and moveable one w/a back to it and rails on the side of it. He got a toilet seat riser but got the wrong size. He is planning ot take that back to get a different one. Pt has a cane and has a 4WW that he can help take the weight off and he does use it some in the house. He has a grabber, long handle shoe horn, and long handle shower brush. last oxy 48 hours ago Treatment Goals Patient/Caregiver Goals Be able to walk without a cane without pain, walk as far as his stamina will allow; be able to climb stairs reciprocally w/o pain or difficulty PT-OP-C Subjective Start: 03/02/23 17:00 Freq: Status: Active Protocol: Document 04/11/23 16:49 [facility] (Rec: 04/11/23 18:08 [facility] [id number]) OP-PT Subjective Patient Comments Patient Comments Pt reports he feels like he is at a little standstill because both quads and legs are so weak. PT-OP-F Manual Assessment Start: 03/02/23 17:00 Freq: Status: Active Protocol: Document 03/28/23 14:33 [facility] (Rec: 03/28/23 16:34 [facility] [id number]) Manual Assessments Soft Tissue Assessment Soft Tissue Mobility Assessment swelling throguhout RLE and into calf and tenderness on ant aspect of thigh thrugh quad, ITB and add PT-OP-G Mobility & Gait Start: 03/02/23 17:00 Freq: Status: Active Protocol: Document 03/28/23 14:33 [facility] (Rec: 03/28/23 16:34 [facility] [id number]) OP Gait Assessment Comments Gait Comments pt amb w/spc w/dec stance time RLE and slight lat lean over RLE PT-OP-M Strength Start: 03/02/23 17:00 Freq: Status: Active Protocol: Document 03/28/23 14:33 [facility] (Rec: 03/28/23 16:34 [facility] [id number]) Hip Strength Hip Manual Muscle Testing Right Flexion (L2) 3- Fair- External Rotation 3+ Fair+ Internal Rotation 3+ Fair+ Comments rot tested neutral Left Flexion (L2) 4+ Good+ External Rotation 3+ Fair+ Internal Rotation 5 Normal Knee Strength Knee Manual Muscle Testing Right Flexion (S2) 4- Good- Extension (L3) 4- Good- Left Flexion (S2) 4 Good Extension (L3) 4 Good Ankle/Foot Strength Ankle and Foot Manual Muscle Testing Right Dorsiflexion (L4) 4 Good Plantarflexion (S1) 4 Good Comments tested seated B Left Dorsiflexion (L4) 5 Normal Plantarflexion (S1) 5 Normal PT-OP-Q Treatments Start: 03/02/23 17:00 Freq: Status: Active Protocol: Document 04/11/23 16:49 [facility] (Rec: 04/11/23 18:08 [facility] [id number]) Cardio Equipment Bicycle (Upright) Duration (Minutes) 5 Resistance 7 Seat Position 6 Gym Equipment Shuttle Recovery Unilateral Squats Details R Resistance 50 (2 dark blue) Shuttle Recovery Platform Stable Reps/Time 10 Bilateral Squats Resistance 100 (4 dark blue) Shuttle Recovery Platform Stable Reps/Time 20 Shuttle Balance blue clips Details balance rail prn- EC & head turn trials Comments Fwd : WBOS & NBOS & staggered stance B Therapeutic Exercises Sitting Exercises hip abd Side bilateral Equipment Used L4 band Reps/Minutes 1 min hold Standing Exercises squat Standing Exercise Name sit to stand Side bilateral Reps/Minutes 10 step up Standing Exercise Name 1.fwd 2. side Side bilateral Equipment Used rail w/RLE; rail only prn w/ LLE Reps/Minutes 1. 12 2. 10 (2 sets on R) march Side bilateral Equipment Used rail and cane Reps/Minutes 10 hip abd Side bilateral Reps/Minutes 15 ea heel raises Side bilateral Reps/Minutes 20 PT-OP-T Assessment and Plan Start: 03/02/23 17:00 Freq: Status: Active Protocol: Document 04/11/23 16:49 [facility] (Rec: 04/11/23 18:08 [facility] [id number]) Physical Therapy Assessment Goals balance Residential Goal (LTG) Pt will be able to do SLS for 5 sec B to show improved balance LTG Duration 06/06/23 strength Residential Goal (LTG) Pt will be be able to score at least 4+/5 on all BLE MMT to show improved strenght to allow greater ease w/daily activities. LTG Duration 06/15/23 stairs Short Term Goal (STG) Pt will be able to reciprocate up stairs w/o inc pain. STG Duration 04/28/23 Residential Goal (LTG) Pt will be able to reciprocate down stairs w/o inc pain. LTG Duration 06/06/23 1 Weights And Measures Sealer Goal (LTG) Pt will be able to return to walking and will be able to do up to 1 mile walks w/o hip pain greater than 1/10. LTG Duration 06/06/23 Assessment Summary Assessment Pt did well with advanced strengthening and inc resistance today but did report quad fatigue w/ exercises. he did better w/ balance activities. Cues needed w/lat step ups and mirror to show hip drop as steps up. Physical Therapy Plan Frequency and Duration Frequency of Treatment 2x/Week Duration of treatment (weeks) 10 Plan of Care Start Date 03/28/23 Plan of Care End Date 06/06/23 Next Visit Focus/Plan Next Note Type Treatment Note Next Visit Plan work on hip strength and cont to progress into balance, gently work into ant hip soft tissue. advance leg press wt
--- NOTE | 2023-04-13 18:11 | PT.OTN ---
Current Diagnoses Unilateral primary osteoarthritis, right hip (04/13/23) Muscle weakness (generalized) (04/13/23) Difficulty in walking, not elsewhere classified (04/13/23) Physical Therapy Treatment Note PT-OP-A Visit Information Start: 03/02/23 17:00 Freq: Status: Active Protocol: Document 04/13/23 16:45 [facility] (Rec: 04/13/23 18:11 [facility] [id number]) Out-Patient Physical Therapy Visit Information Visit Information Visit Type Treatment Note Visit Note 08/27 Visit Start Time 16:48 Visit Stop Time 17:32 Visit Number 6 Number of MINER OPERATOR Visits 0 PT-OP-B Current Condition Start: 03/02/23 17:00 Freq: Status: Active Protocol: Document 03/28/23 14:33 [facility] (Rec: 03/28/23 16:34 [facility] [id number]) Current Condition History of Current Condition Current Complaints R hip pain w/R FAITH ant planned 03/21/23 History of Current Condition 03/28-FAITH ant and he thinks hemay have gotten a hematoma. Hip is feeling good but R thigh has been painful. It is getting better. Pt was checked for a clot and it was all negative. He has his first follow up on . Pt using 4WW around the house. This is his first time going out of the house except going to the hospital the 2nd day for check for clot. He has been indep w/dressing and bathing. He has been walking around and then most of his time in his chair but gets up every hour. Son is helping w/ meals. IE:Pt reports he was set to get his hip replaced prior to COVID but that got cancelled. Pt has pain in R lat hip. Walking is uncomfortable and doesn't work. It catches and sometimes he gets stabs of pain and leg would give way. He fell a few times and sometimes was able to grab ahold of something. Pt notes sometimes pain wakes him at night. Certain movements including in/out of car cause stabbing pain. Has been using a SPC for about 3 years ago when he started getting the catches and give aways. Pt reports 2 [place] w/cabinet on side and has multilevel home but doens't need to get into the basement. His son is living with him and his . His son will be in and out and be able help out. Pt reports his is nearly blind so is limited in how much she can help. 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 He typically does most of the cooking but son will be able to take that over. Pt has walk in shower w/ grab bars w/built in seat and moveable one w/a back to it and rails on the side of it. He got a toilet seat riser but got the wrong size. He is planning ot take that back to get a different one. Pt has a cane and has a 4WW that he can help take the weight off and he does use it some in the house. He has a grabber, long handle shoe horn, and long handle shower brush. last oxy 48 hours ago Treatment Goals Patient/Caregiver Goals Be able to walk without a cane without pain, walk as far as his stamina will allow; be able to climb stairs reciprocally w/o pain or difficulty PT-OP-C Subjective Start: 03/02/23 17:00 Freq: Status: Active Protocol: Document 04/13/23 16:45 [facility] (Rec: 04/13/23 18:11 [facility] [id number]) OP-PT Subjective Patient Comments Patient Comments Pt reports quads were sore after last session PT-OP-F Manual Assessment Start: 03/02/23 17:00 Freq: Status: Active Protocol: Document 03/28/23 14:33 [facility] (Rec: 03/28/23 16:34 [facility] [id number]) Manual Assessments Soft Tissue Assessment Soft Tissue Mobility Assessment swelling throguhout RLE and into calf and tenderness on ant aspect of thigh thrugh quad, ITB and add PT-OP-G Mobility & Gait Start: 03/02/23 17:00 Freq: Status: Active Protocol: Document 03/28/23 14:33 [facility] (Rec: 03/28/23 16:34 [facility] [id number]) OP Gait Assessment Comments Gait Comments pt amb w/spc w/dec stance time RLE and slight lat lean over RLE PT-OP-M Strength Start: 03/02/23 17:00 Freq: Status: Active Protocol: Document 03/28/23 14:33 [facility] (Rec: 03/28/23 16:34 [facility] [id number]) Hip Strength Hip Manual Muscle Testing Right Flexion (L2) 3- Fair- External Rotation 3+ Fair+ Internal Rotation 3+ Fair+ Comments rot tested neutral Left Flexion (L2) 4+ Good+ External Rotation 3+ Fair+ Internal Rotation 5 Normal Knee Strength Knee Manual Muscle Testing Right Flexion (S2) 4- Good- Extension (L3) 4- Good- Left Flexion (S2) 4 Good Extension (L3) 4 Good Ankle/Foot Strength Ankle and Foot Manual Muscle Testing Right Dorsiflexion (L4) 4 Good Plantarflexion (S1) 4 Good Comments tested seated B Left Dorsiflexion (L4) 5 Normal Plantarflexion (S1) 5 Normal PT-OP-Q Treatments Start: 03/02/23 17:00 Freq: Status: Active Protocol: Document 04/13/23 16:45 [facility] (Rec: 04/13/23 18:11 [facility] [id number]) Gym Equipment Shuttle Recovery Unilateral Squats Details R Resistance 50 (2 dark blue) Shuttle Recovery Platform Stable Reps/Time 12 Bilateral Squats Resistance 100 (4 dark blue) Shuttle Recovery Platform Stable Reps/Time 20 Shuttle Balance red clips Comments fwd & side: WBOS balance; WBOS wt shifts; NBOS balance Therapeutic Exercises Standing Exercises step up Standing Exercise Name lat Side bilateral Equipment Used 4 in w/rail Reps/Minutes 10 B Comments mirror for monitor hips hip abd Standing Exercise Name sidesteps Side bilateral Equipment Used lvl 1 at ankles Reps/Minutes 20ft ea Gait Training Gait Activity walking Comments fwd wt shift focus w/bar 2x20ft walking 75ft w/cues and focus on wt shift and acceptance wt shifts Comments fwd x10 B stairs Comments 1. step ups 4in step x10 B- L rail min use on RLE ; rail only prn on R 2. step downs 4 in step x10 B- L rail Neuro Re-Education Treatment Balance Activities marching Details fwd Reps/Duration 20ft x2 hurdles Details 6 hurdles Reps/Duration 4x Comments recip over hurdles w/rail PT-OP-T Assessment and Plan Start: 03/02/23 17:00 Freq: Status: Active Protocol: Document 04/13/23 16:45 [facility] (Rec: 04/13/23 18:11 [facility] [id number]) Physical Therapy Assessment Goals balance Usp Goal (LTG) Pt will be able to do SLS for 5 sec B to show improved balance LTG Duration 06/06/23 strength Buckle Strap Puncher Goal (LTG) Pt will be be able to score at least 4+/5 on all BLE MMT to show improved strenght to allow greater ease w/daily activities. LTG Duration 06/15/23 stairs Short Term Goal (STG) Pt will be able to reciprocate up stairs w/o inc pain. STG Duration 04/28/23 Buckle Strap Puncher Goal (LTG) Pt will be able to reciprocate down stairs w/o inc pain. LTG Duration 06/06/23 1 Usp Goal (LTG) Pt will be able to return to walking and will be able to do up to 1 mile walks w/o hip pain greater than 1/10. LTG Duration 06/06/23 Assessment Summary Assessment Pt did well with strengthening and looked better with gait training and was able to improve wt acceptance w/cueing and focus. Appears like gait pattern is more of a habit at this time. Physical Therapy Plan Frequency and Duration Frequency of Treatment 2x/Week Duration of treatment (weeks) 10 Plan of Care Start Date 03/28/23 Plan of Care End Date 06/06/23 Next Visit Focus/Plan Next Note Type Treatment Note Next Visit Plan work on hip strength and cont to progress into balance, gently work into ant hip soft tissue. advance leg press wt as able
--- NOTE | 2023-04-18 15:18 | PT.OTN ---
Current Diagnoses Unilateral primary osteoarthritis, right hip (04/18/23) Muscle weakness (generalized) (04/18/23) Difficulty in walking, not elsewhere classified (04/18/23) Physical Therapy Treatment Note PT-OP-A Visit Information Start: 03/02/23 17:00 Freq: Status: Active Protocol: Document 04/18/23 14:36 SP (Rec: 04/18/23 15:46 SP [id number]) Out-Patient Physical Therapy Visit Information Visit Information Visit Type Treatment Note Visit Note 08/27 Visit Start Time 14:36 Visit Stop Time 15:18 Visit Number 42 Number of SPECIFICATION CONSULTANT Visits 1 PT-OP-B Current Condition Start: 03/02/23 17:00 Freq: Status: Active Protocol: Document 03/28/23 14:33 LR (Rec: 03/28/23 16:34 [facility] [id number]) Current Condition History of Current Condition Current Complaints R hip pain w/R FAITH ant planned 03/21/23 History of Current Condition 03/28-FAITH ant and he thinks hemay have gotten a hematoma. Hip is feeling good but R thigh has been painful. It is getting better. Pt was checked for a clot and it was all negative. He has his first follow up on . Pt using 4WW around the house. This is his first time going out of the house except going to the hospital the day for check for clot. He has been indep w/dressing and bathing. He has been walking around and then most of his time in his chair but gets up every hour. Son is helping w/ meals. IE:Pt reports he was set to get his hip replaced prior to COVID but that got cancelled. Pt has pain in R lat hip. Walking is uncomfortable and doesn't work. It catches and sometimes he gets stabs of pain and leg would give way. He fell a few times and sometimes was able to grab ahold of something. Pt notes sometimes pain wakes him at night. Certain movements including in/out of car cause stabbing pain. Has been using a SPC for about 3 years ago when he started getting the catches and give aways. Pt reports 2 [place] w/cabinet on side and has multilevel home but doens't need to get into the basement. His son is living with him and his . His son will be in and out and be able help out. Pt reports his is nearly blind so is limited in how much she can help. She does do some of the grocery clerk stocking. He typically does most of the cooking but son will be able to take that over. Pt has walk in shower w/ grab bars w/built in seat and moveable one w/a back to it and rails on the side of it. He got a toilet seat riser but got the wrong size. He is planning ot take that back to get a different one. Pt has a cane and has a 4WW that he can help take the weight off and he does use it some in the house. He has a grabber, long handle shoe horn, and long handle shower brush. last oxy 48 hours ago Treatment Goals Patient/Caregiver Goals Be able to walk without a cane without pain, walk as far as his stamina will allow; be able to climb stairs reciprocally w/o pain or difficulty PT-OP-C Subjective Start: 03/02/23 17:00 Freq: Status: Active Protocol: Document 04/18/23 14:36 SP (Rec: 04/18/23 15:46 SP [id number]) OP-PT Subjective Patient Comments Patient Comments Pt reports quad were sore after last tx and arrival. PT-OP-F Manual Assessment Start: 03/02/23 17:00 Freq: Status: Active Protocol: Document 03/28/23 14:33 [facility] (Rec: 03/28/23 16:34 [facility] [id number]) Manual Assessments Soft Tissue Assessment Soft Tissue Mobility Assessment swelling throguhout RLE and into calf and tenderness on ant aspect of thigh thrugh quad, ITB and add PT-OP-G Mobility & Gait Start: 03/02/23 17:00 Freq: Status: Active Protocol: Document 03/28/23 14:33 [facility] (Rec: 03/28/23 16:34 [facility] [id number]) OP Gait Assessment Comments Gait Comments pt amb w/spc w/dec stance time RLE and slight lat lean over RLE PT-OP-M Strength Start: 03/02/23 17:00 Freq: Status: Active Protocol: Document 03/28/23 14:33 [facility] (Rec: 03/28/23 16:34 [facility] [id number]) Hip Strength Hip Manual Muscle Testing Right Flexion (L2) 3- Fair- External Rotation 3+ Fair+ Internal Rotation 3+ Fair+ Comments rot tested neutral Left Flexion (L2) 4+ Good+ External Rotation 3+ Fair+ Internal Rotation 5 Normal Knee Strength Knee Manual Muscle Testing Right Flexion (S2) 4- Good- Extension (L3) 4- Good- Left Flexion (S2) 4 Good Extension (L3) 4 Good Ankle/Foot Strength Ankle and Foot Manual Muscle Testing Right Dorsiflexion (L4) 4 Good Plantarflexion (S1) 4 Good Comments tested seated B Left Dorsiflexion (L4) 5 Normal Plantarflexion (S1) 5 Normal PT-OP-Q Treatments Start: 03/02/23 17:00 Freq: Status: Active Protocol: Document 04/18/23 14:36 SP (Rec: 04/18/23 15:46 SP [id number]) Therapeutic Exercises Sidelying Exercises R SL Sidelying Exercise Name in PT Resistance L4 band Reps/Minutes 5 reps, 1 min hold Comments tactile cue stacked on side/ legs straighkickstand arm front/hand on table Sitting Exercises piriformis stretch Sitting Exercise Name trialed end tx Side bilateral Reps/Minutes 1 rep 15 SH Comments support 1 UE hold ankle over opp knee- strong stretch L>R Standing Exercises HS curls Standing Exercise Name in PT Resistance 4# leg wt, BUE rail support Equipment Used (longer LLE) Reps/Minutes 2x10 Comments cued elongated posturing, soft TKE R knee, knees // side stepping Standing Exercise Name in PT trialed Resistance TB #2 at mid zepeda Equipment Used rail support 1-2 UE Reps/Minutes 15 ft x2 laps Comments cued elongated posturing, soft TKE, eccentric return squat Standing Exercise Name sit to stand Side bilateral Equipment Used mesh chair, no UE asc/1-2 UE desc Reps/Minutes 10 Comments no UE stand, Max cues hip hinge slow descend, challenge last 2 hip abd Standing Exercise Name abd Side bilateral Equipment Used 4# leg wt, rail support Reps/Minutes 20ft ea Comments cued soft R knee during LLE, elongated posture Other Exercises self STMs Other Exercise Name R quad, HS, ITB, calf rolling pin Reps/Minutes 2 min total Comments good feedback response Gait Training Gait Activity walking Treatment Focus R glut med/max support, soft knee HS support, elongated posture Comments -fwd wt shift focus w/bar 2x20ft -walking 50 ft, 75ft w/cues and focus on wt shift and RLE acceptance -cues soft stepping LLE- improved R glut firing/hip abd /core fac/posturing midline support, maintains approx 50% of the time with cuing. wt shifts Surface floor, blue foam cushions Distance/Duration standing NBOS, stride Comments fwd x10 B, cues soft R knee/ hip ext pelvis over stance leg stairs Device Used L HR Distance/Duration 6 steps 4, 4 steps 8 Treatment Focus R glut/TKE/HS support soft knee during stance time Comments Asc/desc receiprocal steppin step 6 step *improved R TKE/ HS control into ext not locked /c cues for soft knee & heel drive wt shift into RLE during LLE advancement PT-OP-T Assessment and Plan Start: 03/02/23 17:00 Freq: Status: Active Protocol: Document 04/18/23 14:36 SP (Rec: 04/18/23 15:46 SP [id number]) Physical Therapy Assessment Goals balance Assisted Living Home Director Goal (LTG) Pt will be able to do SLS for 5 sec B to show improved balance LTG Duration 06/06/23 strength Prison Goal (LTG) Pt will be be able to score at least 4+/5 on all BLE MMT to show improved strenght to allow greater ease w/daily activities. LTG Duration 06/15/23 stairs Short Term Goal (STG) Pt will be able to reciprocate up stairs w/o inc pain. STG Duration 04/28/23 Assisted Living Home Director Goal (LTG) Pt will be able to reciprocate down stairs w/o inc pain. LTG Duration 06/06/23 1 Prison Goal (LTG) Pt will be able to return to walking and will be able to do up to 1 mile walks w/o hip pain greater than 1/10. LTG Duration 06/06/23 Assessment Summary Assessment Pt did well with strengthening ther ex and improved wt acceptance into RLE with reduction in locking into ext, with mod/max cues for tall over R LE soft knee and soft/ quiet stepping with LLE, maintained approx 50% time. Added resisted HS curls to HEP to support soft positioning during stance time. Pt reports painfree and LEs tired end tx. Physical Therapy Plan Frequency and Duration Frequency of Treatment 2x/Week Duration of treatment (weeks) 10 Plan of Care Start Date 03/28/23 Plan of Care End Date 06/06/23 Therapeutic Interventions Therapeutic Interventions Balance Training,Gait Training ,Home Exercise Program,Joint Mobilizations,Manual Therapy, Neuromuscular Re-education, Orthotic/Prosthetic Management ,Patient/Caregiver Education, Self-Care/Home Management,Soft Tissue Mobilization,Taping, Therapeutic Activities, Therapeutic Exercises Modalities Cold Pack/Ice Massage,Electric Stimulation,Hot Packs, Infrared Therapy,Ultrasound Next Visit Focus/Plan Next Note Type Treatment Note Next Visit Plan work on hip strength and cont to progress into balance, gently work into ant hip soft tissue. advance leg press wt as able
--- NOTE | 2023-04-21 13:09 | PT.OTN ---
Current Diagnoses Unilateral primary osteoarthritis, right hip (04/21/23) Muscle weakness (generalized) (04/21/23) Difficulty in walking, not elsewhere classified (04/21/23) Physical Therapy Treatment Note PT-OP-A Visit Information Start: 03/02/23 17:00 Freq: Status: Active Protocol: Document 04/21/23 12:19 SP (Rec: 04/21/23 13:09 SP [id number]) Out-Patient Physical Therapy Visit Information Visit Information Visit Type Treatment Note Visit Note 09/26 post eval, 08/27 post re- eval Visit Start Time 12:19 Visit Stop Time 13:09 Visit Number 8 Number of DRAW MACHINE OPERATOR Visits 2 PT-OP-B Current Condition Start: 03/02/23 17:00 Freq: Status: Active Protocol: Document 03/28/23 14:33 [facility] (Rec: 03/28/23 16:34 [facility] [id number]) Current Condition History of Current Condition Current Complaints R hip pain w/R FAITH ant planned 03/21/23 History of Current Condition 03/28-FAITH ant and he thinks hemay have gotten a hematoma. Hip is feeling good but R thigh has been painful. It is getting better. Pt was checked for a clot and it was all negative. He has his first follow up on . Pt using 4WW around the house. This is his first time going out of the house except going to the hospital the 2nd day for check for clot. He has been indep w/dressing and bathing. He has been walking around and then most of his time in his chair but gets up every hour. Son is helping w/ meals. IE:Pt reports he was set to get his hip replaced prior to COVID but that got cancelled. Pt has pain in R lat hip. Walking is uncomfortable and doesn't work. It catches and sometimes he gets stabs of pain and leg would give way. He fell a few times and sometimes was able to grab ahold of something. Pt notes sometimes pain wakes him at night. Certain movements including in/out of car cause stabbing pain. Has been using a SPC for about 3 years ago when he started getting the catches and give aways. Pt reports 2 [place] w/cabinet on side and has multilevel home but doens't need to get into the basement. His son is living with him and his . His son will be in and out and be able help out. Pt reports his is nearly blind so is limited in how much she can help. She does do some of the fluid dynamicist. He typically does most of the cooking but son will be able to take that over. Pt has walk in shower w/ grab bars w/built in seat and moveable one w/a back to it and rails on the side of it. He got a toilet seat riser but got the wrong size. He is planning ot take that back to get a different one. Pt has a cane and has a 4WW that he can help take the weight off and he does use it some in the house. He has a grabber, long handle shoe horn, and long handle shower brush. last oxy 48 hours ago Treatment Goals Patient/Caregiver Goals Be able to walk without a cane without pain, walk as far as his stamina will allow; be able to climb stairs reciprocally w/o pain or difficulty PT-OP-C Subjective Start: 03/02/23 17:00 Freq: Status: Active Protocol: Document 04/21/23 12:19 SP (Rec: 04/24/23 15:45 SP [id number]) OP-PT Subjective Patient Comments Patient Comments Pt reported little sore after last tx. Pt reports has a post op appt very soon. PT-OP-F Manual Assessment Start: 03/02/23 17:00 Freq: Status: Active Protocol: Document 03/28/23 14:33 [facility] (Rec: 03/28/23 16:34 [facility] [id number]) Manual Assessments Soft Tissue Assessment Soft Tissue Mobility Assessment swelling throguhout RLE and into calf and tenderness on ant aspect of thigh thrugh quad, ITB and add PT-OP-G Mobility & Gait Start: 03/02/23 17:00 Freq: Status: Active Protocol: Document 03/28/23 14:33 [facility] (Rec: 03/28/23 16:34 [facility] [id number]) OP Gait Assessment Comments Gait Comments pt amb w/spc w/dec stance time RLE and slight lat lean over RLE PT-OP-M Strength Start: 03/02/23 17:00 Freq: Status: Active Protocol: Document 03/28/23 14:33 [facility] (Rec: 03/28/23 16:34 [facility] [id number]) Hip Strength Hip Manual Muscle Testing Right Flexion (L2) 3- Fair- External Rotation 3+ Fair+ Internal Rotation 3+ Fair+ Comments rot tested neutral Left Flexion (L2) 4+ Good+ External Rotation 3+ Fair+ Internal Rotation 5 Normal Knee Strength Knee Manual Muscle Testing Right Flexion (S2) 4- Good- Extension (L3) 4- Good- Left Flexion (S2) 4 Good Extension (L3) 4 Good Ankle/Foot Strength Ankle and Foot Manual Muscle Testing Right Dorsiflexion (L4) 4 Good Plantarflexion (S1) 4 Good Comments tested seated B Left Dorsiflexion (L4) 5 Normal Plantarflexion (S1) 5 Normal PT-OP-Q Treatments Start: 03/02/23 17:00 Freq: Status: Active Protocol: Document 04/21/23 12:19 SP (Rec: 04/21/23 13:09 SP [id number]) Therapeutic Exercises Supine Exercises FAITH exercises Supine Exercise Name 1. APs 2. quad sets 3. glute sets 4. heel slides Side bilateral Reps/Minutes 2-3. 5 ea 10 SH, 1 & 3. 5reps Comments all B except heel slides Sidelying Exercises clamshell Sidelying Exercise Name added to HEP Side bilateral Resistance AROM Reps/Minutes 2x10 Comments good glut med tiring R SL Sidelying Exercise Name in PT at this time : hip abd Resistance AROM Equipment Used challenge TKE Reps/Minutes 5 reps Comments tactile cue stacked on side/ legs straighkickstand arm front/hand on table Sitting Exercises piriformis stretch Sitting Exercise Name Hold- 04/21/23 Side right Comments to tight on R today. hip abd Side bilateral Equipment Used L4 band Reps/Minutes 1 min hold Comments good challenge muscle tiring Standing Exercises HS curls Standing Exercise Name in PT Equipment Used (longer LLE) Reps/Minutes 2x10 Comments cued elongated posturing, soft TKE R knee, knees // squat Standing Exercise Name sit to stand- added to HE Side bilateral Equipment Used mesh chair, no UE Reps/Minutes 5 reps x2 Comments scoot fwd, STS, hip hinge desc no UEs Gait Training Gait Activity wt shifts Description added to HEP Surface floor, blue foam cushions Distance/Duration standing NBOS, stride Comments fwd x10 B, cues soft R knee/ hip ext pelvis over stance leg Manual Therapy Treatment Soft Tissue Mobilization scar Body Location gentle Mobilization Type Rolling,Other Intensity/Depth Superficial Body Position Supine Comments supported scar MF mobility supported either side, multidirectional. R hip Body Location R TFL, ITB Mobilization Type Myofascial Release,Other Intensity/Depth Superficial Body Position Sidelying Comments rolling pin, broad MF mulitdirectional PT-OP-T Assessment and Plan Start: 03/02/23 17:00 Freq: Status: Active Protocol: Document 04/21/23 12:19 SP (Rec: 04/21/23 13:09 SP [id number]) Physical Therapy Assessment Goals balance Detention Goal (LTG) Pt will be able to do SLS for 5 sec B to show improved balance LTG Duration 06/06/23 strength Shearer Screen Measurer And Trimmer Goal (LTG) Pt will be be able to score at least 4+/5 on all BLE MMT to show improved strenght to allow greater ease w/daily activities. LTG Duration 06/15/23 stairs Short Term Goal (STG) Pt will be able to reciprocate up stairs w/o inc pain. STG Duration 04/28/23 She[facility] Screen Measurer And Trimmer Goal (LTG) Pt will be able to reciprocate down stairs w/o inc pain. LTG Duration 06/06/23 1 Detention Goal (LTG) Pt will be able to return to walking and will be able to do up to 1 mile walks w/o hip pain greater than 1/10. LTG Duration 06/06/23 Assessment Summary Assessment Pt improved hip abd engagement reports during clamshell and max tactile hip abd during tx. REview post-op ex to support elongated LE ROM isometric holds and quad/glut engagement TKE which carried over wt shift into RLE with level pelvis walking away from table , added to HEP. Physical Therapy Plan Frequency and Duration Frequency of Treatment 2x/Week Duration of treatment (weeks) 10 Plan of Care Start Date 03/28/23 Plan of Care End Date 06/06/23 Therapeutic Interventions Therapeutic Interventions Balance Training,Gait Training ,Home Exercise Program,Joint Mobilizations,Manual Therapy, Neuromuscular Re-education, Orthotic/Prosthetic Management ,Patient/Caregiver Education, Self-Care/Home Management,Soft Tissue Mobilization,Taping, Therapeutic Activities, Therapeutic Exercises Modalities Cold Pack/Ice Massage,Electric Stimulation,Hot Packs, Infrared Therapy,Ultrasound Next Visit Focus/Plan Next Note Type Treatment Note Next Visit Plan Assess R hip abd str and gait supported. POC: work on hip strength and cont to progress into balance, gently work into ant hip soft tissue. advance leg press wt as able
--- NOTE | 2023-04-25 14:18 | PT.OTN ---
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 Hip is feeling good but R thigh has been painful. It is getting better. Pt was checked for a clot and it was all negative. He has his first follow up on . Pt using 4WW around the house. This is his first time going out of the house except going to the hospital the 2nd day for check for clot. He has been indep w/dressing and bathing. He has been walking around and then most of his time in his chair but gets up every hour. Son is helping w/ meals. IE:Pt reports he was set to get his hip replaced prior to COVID but that got cancelled. Pt has pain in R lat hip. Walking is uncomfortable and doesn't work. It catches and sometimes he gets stabs of pain and leg would give way. He fell a few times and sometimes was able to grab ahold of something. Pt notes sometimes pain wakes him at night. Certain movements including in/out of car cause stabbing pain. Has been using a SPC for about 3 years ago when he started getting the catches and give aways. Pt reports 2 [place] w/cabinet on side and has multilevel home but doens't need to get into the basement. His son is living with him and his . His son will be in and out and be able help out. Pt reports his is nearly blind so is limited in how much she can help. 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 He typically does most of the cooking but son will be able to take that over. Pt has walk in shower w/ grab bars w/built in seat and moveable one w/a back to it and rails on the side of it. He got a toilet seat riser but got the wrong size. He is planning ot take that back to get a different one. Pt has a cane and has a 4WW that he can help take the weight off and he does use it some in the house. He has a grabber, long handle shoe horn, and long handle shower brush. last oxy 48 hours ago Treatment Goals Patient/Caregiver Goals Be able to walk without a cane without pain, walk as far as his stamina will allow; be able to climb stairs reciprocally w/o pain or difficulty PT-OP-C Subjective Start: 03/02/23 17:00 Freq: Status: Active Protocol: Document 04/25/23 11:30 [facility] (Rec: 04/25/23 11:35 [facility] [id number]) OP-PT Subjective Patient Comments Patient Comments pt reports post op appt by end of month; still feels weak. difficulty getting up from ground. Did ok w/getting down to grund PT-OP-D Balance Start: 03/02/23 17:00 Freq: Status: Active Protocol: Document 04/25/23 11:30 [facility] (Rec: 04/25/23 11:40 [facility] [id number]) Balance Tests Single Limb Standing Single Limb- Right 5 sec Single Limb- Left 8 sec PT-OP-F Manual Assessment Start: 03/02/23 17:00 Freq: Status: Active Protocol: Document 03/28/23 14:33 [facility] (Rec: 03/28/23 16:34 [facility] [id number]) Manual Assessments Soft Tissue Assessment Soft Tissue Mobility Assessment swelling throguhout RLE and into calf and tenderness on ant aspect of thigh thrugh quad, ITB and add PT-OP-G Mobility & Gait Start: 03/02/23 17:00 Freq: Status: Active Protocol: Document 03/28/23 14:33 [facility] (Rec: 03/28/23 16:34 [facility] [id number]) OP Gait Assessment Comments Gait Comments pt amb w/spc w/dec stance time RLE and slight lat lean over RLE PT-OP-M Strength Start: 03/02/23 17:00 Freq: Status: Active Protocol: Document 04/25/23 11:30 [facility] (Rec: 04/25/23 11:40 [facility] [id number]) Hip Strength Hip Manual Muscle Testing Right Flexion (L2) 4- Good- Abduction 3+ Fair+ External Rotation 4- Good- Internal Rotation 4 Good Comments rot tested neutral Left Flexion (L2) 4+ Good+ Abduction 4 Good External Rotation 3+ Fair+ Internal Rotation 5 Normal Comments abd tested slight in flex position d/t pt tightness Knee Strength Knee Manual Muscle Testing Right Flexion (S2) 4+ Good+ Extension (L3) 4 Good Left Flexion (S2) 5 Normal Extension (L3) 4+ Good+ Ankle/Foot Strength Ankle and Foot Manual Muscle Testing Right Dorsiflexion (L4) 5 Normal Plantarflexion (S1) 5 Normal Comments tested seated B Left Dorsiflexion (L4) 5 Normal Plantarflexion (S1) 5 Normal PT-OP-Q Treatments Start: 03/02/23 17:00 Freq: Status: Active Protocol: Document 04/25/23 11:30 [facility] (Rec: 04/25/23 11:35 [facility] [id number]) Gym Equipment Shuttle Recovery Unilateral Squats Details B Resistance 50 (2 dark blue) Shuttle Recovery Platform Stable Reps/Time 15 Bilateral Squats Resistance 100 (4 dark blue) Shuttle Recovery Platform Stable Reps/Time 20 Therapeutic Exercises Standing Exercises step up Standing Exercise Name lat step up/down Side bilateral Equipment Used 4 in step w/rail Reps/Minutes 10 Comments cues for control Therapeutic Activity Therapeutic Activity ground transfer Comments 2x cues for wt shift into leg fwd Gait Training Gait Activity wt shifts Comments staggered stance B x12 in mirror w/focus on wt shift fwd of entire trunk and trunk upright stairs Comments up/down recip lobby stairs (26 ) w/1 rail SBA PT-OP-T Assessment and Plan Start: 03/02/23 17:00 Freq: Status: Active Protocol: Document 04/25/23 11:30 [facility] (Rec: 04/25/23 11:35 [facility] [id number]) Physical Therapy Assessment Goals balance Correction Goal (LTG) Pt will be able to do SLS for 5 sec B to show improved balance LTG Duration achieved 04/25/23 strength Correction Goal (LTG) Pt will be be able to score at least 4+/5 on all BLE MMT to show improved strenght to allow greater ease w/daily activities. 2/6-improved significanntly LTG Duration 06/15/23 stairs Short Term Goal (STG) Pt will be able to reciprocate up stairs w/o inc pain. STG Duration achieved 6 w/rail min Correction Goal (LTG) Pt will be able to reciprocate down stairs w/o inc pain. 2/-minor pain sup to knee but can recip w/rail LTG Duration 06/06/23 1 Correction Goal (LTG) Pt will be able to return to walking and will be able to do up to 1 mile walks w/o hip pain greater than 1/10. 2/-has only been doing inside and up/down stairs LTG Duration 06/06/23 Assessment Summary Assessment Pt is making excellent progress w/PT with much improved gait pattern, improved ability to do stairs and balance. He is advancing well w/inc resistance and inc difficulty w/balance tasks. He would benefit from cont PT to focus on this. Physical Therapy Plan Frequency and Duration Frequency of Treatment 2x/Week Duration of treatment (weeks) 10 Plan of Care Start Date 03/28/23 Plan of Care End Date 06/06/23 Therapeutic Interventions Therapeutic Interventions Balance Training,Gait Training ,Home Exercise Program,Joint Mobilizations,Manual Therapy, Neuromuscular Re-education, Orthotic/Prosthetic Management ,Patient/Caregiver Education, Self-Care/Home Management,Soft Tissue Mobilization,Taping, Therapeutic Activities, Therapeutic Exercises Modalities Cold Pack/Ice Massage,Electric Stimulation,Hot Packs, Infrared Therapy,Ultrasound Next Visit Focus/Plan Next Note Type Treatment Note Next Visit Plan work on hip strength and cont to progress into balance, gently work into ant hip soft tissue. advance leg press wt as able
--- NOTE | 2023-04-27 16:33 | PT.OTN ---
Current Diagnoses Unilateral primary osteoarthritis, right hip (04/27/23) Muscle weakness (generalized) (04/27/23) Difficulty in walking, not elsewhere classified (04/27/23) Physical Therapy Treatment Note PT-OP-A Visit Information Start: 03/02/23 17:00 Freq: Status: Active Protocol: Document 04/27/23 13:00 [facility] (Rec: 04/27/23 13:47 [facility] [id number]) Out-Patient Physical Therapy Visit Information Visit Information Visit Type Treatment Note Visit Note 04/29 Visit Start Time 13:01 Visit Stop Time 13:39 Visit Number 10 Number of RADIATOR TESTER Visits 1 PT-OP-B Current Condition Start: 03/02/23 17:00 Freq: Status: Active Protocol: Document 03/28/23 14:33 [facility] (Rec: 03/28/23 16:34 [facility] [id number]) Current Condition History of Current Condition Current Complaints R hip pain w/R FAITH ant planned 03/21/23 History of Current Condition 03/28-FAITH ant and he thinks hemay have gotten a hematoma. Hip is feeling good but R thigh has been painful. It is getting better. Pt was checked for a clot and it was all negative. He has his first follow up on . Pt using 4WW around the house. This is his first time going out of the house except going to the hospital the day for check for clot. He has been indep w/dressing and bathing. He has been walking around and then most of his time in his chair but gets up every hour. Son is helping w/ meals. IE:Pt reports he was set to get his hip replaced prior to COVID but that got cancelled. Pt has pain in R lat hip. Walking is uncomfortable and doesn't work. It catches and sometimes he gets stabs of pain and leg would give way. He fell a few times and sometimes was able to grab ahold of something. Pt notes sometimes pain wakes him at night. Certain movements including in/out of car cause stabbing pain. Has been using a SPC for about 3 years ago when he started getting the catches and give aways. Pt reports 2 [place] w/cabinet on side and has multilevel home but doens't need to get into the basement. His son is living with him and his . His son will be in and out and be able help out. Pt reports his is nearly blind so is limited in how much she can help. 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 He typically does most of the cooking but son will be able to take that over. Pt has walk in shower w/ grab bars w/built in seat and moveable one w/a back to it and rails on the side of it. He got a toilet seat riser but got the wrong size. He is planning ot take that back to get a different one. Pt has a cane and has a 4WW that he can help take the weight off and he does use it some in the house. He has a grabber, long handle shoe horn, and long handle shower brush. last oxy 48 hours ago Treatment Goals Patient/Caregiver Goals Be able to walk without a cane without pain, walk as far as his stamina will allow; be able to climb stairs reciprocally w/o pain or difficulty PT-OP-C Subjective Start: 03/02/23 17:00 Freq: Status: Active Protocol: Document 04/27/23 13:00 [facility] (Rec: 04/27/23 13:47 [id number]) OP-PT Subjective Patient Comments Patient Comments Pt reports sore on mm/IT band, went up/down stairs, went good just a little pain above knee in the quad. PT-OP-D Balance Start: 03/02/23 17:00 Freq: Status: Active Protocol: Document 04/25/23 11:30 [facility] (Rec: 04/25/23 11:40 [facility] [id number]) Balance Tests Single Limb Standing Single Limb- Right 5 sec Single Limb- Left 8 sec PT-OP-F Manual Assessment Start: 03/02/23 17:00 Freq: Status: Active Protocol: Document 03/28/23 14:33 [facility] (Rec: 03/28/23 16:34 [facility] [id number]) Manual Assessments Soft Tissue Assessment Soft Tissue Mobility Assessment swelling throguhout RLE and into calf and tenderness on ant aspect of thigh thrugh quad, ITB and add PT-OP-G Mobility & Gait Start: 03/02/23 17:00 Freq: Status: Active Protocol: Document 03/28/23 14:33 [facility] (Rec: 03/28/23 16:34 [facility] [id number]) OP Gait Assessment Comments Gait Comments pt amb w/spc w/dec stance time RLE and slight lat lean over RLE PT-OP-M Strength Start: 03/02/23 17:00 Freq: Status: Active Protocol: Document 04/25/23 11:30 [facility] (Rec: 04/25/23 11:40 [facility] [id number]) Hip Strength Hip Manual Muscle Testing Right Flexion (L2) 4- Good- Abduction 3+ Fair+ External Rotation 4- Good- Internal Rotation 4 Good Comments rot tested neutral Left Flexion (L2) 4+ Good+ Abduction 4 Good External Rotation 3+ Fair+ Internal Rotation 5 Normal Comments abd tested slight in flex position d/t pt tightness Knee Strength Knee Manual Muscle Testing Right Flexion (S2) 4+ Good+ Extension (L3) 4 Good Left Flexion (S2) 5 Normal Extension (L3) 4+ Good+ Ankle/Foot Strength Ankle and Foot Manual Muscle Testing Right Dorsiflexion (L4) 5 Normal Plantarflexion (S1) 5 Normal Comments tested seated B Left Dorsiflexion (L4) 5 Normal Plantarflexion (S1) 5 Normal PT-OP-Q Treatments Start: 03/02/23 17:00 Freq: Status: Active Protocol: Document 04/27/23 13:00 (Rec: 04/27/23 13:47 [id number]) Cardio Equipment Recumbent Elliptical (Biodex) Duration (Minutes) 4 Resistance 4 Seat Position 10 Other warm up, strength Gym Equipment Shuttle Recovery Unilateral Squats Details B Resistance 50 (2 dark blue) Shuttle Recovery Platform Stable Reps/Time 15 Bilateral Squats Resistance 100 (4 dark blue) Shuttle Recovery Platform Stable Reps/Time 20 Therapeutic Exercises Standing Exercises squat Standing Exercise Name sit to stand- added to HE Side bilateral Equipment Used mesh chair w/blue foam, no UE Reps/Minutes 5 reps x2 Comments scoot fwd, STS, hip hinge desc no UEs step up Standing Exercise Name lat step up/down Side bilateral Equipment Used 4 in step w/rail Reps/Minutes 10 Comments cues for control Gait Training Gait Activity stairs Comments up/down recip lobby stairs (26 ) w/1 rail SBA Neuro Re-Education Treatment Balance Activities Rocker Board Details static, weight shifting (fwd/ bck, lateral) Surface unstable Equipment // bars Foam Details WBOS (EO/EC) ,NBOS, weight shifting Surface Foam Equipment // bars prn PT-OP-T Assessment and Plan Start: 03/02/23 17:00 Freq: Status: Active Protocol: Document 04/27/23 13:00 (Rec: 04/27/23 13:47 [id number]) Physical Therapy Assessment Goals balance Relationship Executive Goal (LTG) Pt will be able to do SLS for 5 sec B to show improved balance LTG Duration achieved 04/25/23 strength Relationship Executive Goal (LTG) Pt will be be able to score at least 4+/5 on all BLE MMT to show improved strenght to allow greater ease w/daily activities. 2/6-improved significanntly LTG Duration 06/15/23 stairs Short Term Goal (STG) Pt will be able to reciprocate up stairs w/o inc pain. STG Duration achieved 2/6 w/rail min Relationship Executive Goal (LTG) Pt will be able to reciprocate down stairs w/o inc pain. 2/6-minor pain sup to knee but can recip w/rail LTG Duration 06/06/23 1 Penitentiary Goal (LTG) Pt will be able to return to walking and will be able to do up to 1 mile walks w/o hip pain greater than 1/10. 2/6-has only been doing inside and up/down stairs LTG Duration 06/06/23 Assessment Summary Assessment Initiated balance challenges today, ankle/hip strategies engaged with increased difficulty. Initiated rocker board for balance/weight shifting to carryover into gait, increased difficulty balancing board equalizing weight between BLE in lateral favoring LLE, improved with time. Physical Therapy Plan Frequency and Duration Frequency of Treatment 2x/Week Duration of treatment (weeks) 10 Plan of Care Start Date 03/28/23 Plan of Care End Date 06/06/23 Therapeutic Interventions Therapeutic Interventions Balance Training,Gait Training ,Home Exercise Program,Joint Mobilizations,Manual Therapy, Neuromuscular Re-education, Orthotic/Prosthetic Management ,Patient/Caregiver Education, Self-Care/Home Management,Soft Tissue Mobilization,Taping, Therapeutic Activities, Therapeutic Exercises Modalities Cold Pack/Ice Massage,Electric Stimulation,Hot Packs, Infrared Therapy,Ultrasound Next Visit Focus/Plan Next Note Type Treatment Note Next Visit Plan work on hip strength and cont to progress into balance, gently work into ant hip soft tissue. advance leg press wt as able
--- NOTE | 2023-05-02 13:43 | PT.OTN ---
Current Diagnoses Unilateral primary osteoarthritis, right hip (05/02/23) Muscle weakness (generalized) (05/02/23) Difficulty in walking, not elsewhere classified (05/02/23) Physical Therapy Treatment Note PT-OP-A Visit Information Start: 03/02/23 17:00 Freq: Status: Active Protocol: Document 05/02/23 13:05 SP (Rec: 05/02/23 13:46 SP [id number]) Out-Patient Physical Therapy Visit Information Visit Information Visit Type Treatment Note Visit Note 05/27 post PN Visit Start Time 13:05 Visit Stop Time 13:43 Visit Number 11 Number of CAREER CENTER ADVISOR Visits 2 PT-OP-B Current Condition Start: 03/02/23 17:00 Freq: Status: Active Protocol: Document 03/28/23 14:33 [facility] (Rec: 03/28/23 16:34 [facility] [id number]) Current Condition History of Current Condition Current Complaints R hip pain w/R FAITH ant planned 03/21/23 History of Current Condition 03/28-FAITH ant and he thinks hemay have gotten a hematoma. Hip is feeling good but R thigh has been painful. It is getting better. Pt was checked for a clot and it was all negative. He has his first follow up on . Pt using 4WW around the house. This is his first time going out of the house except going to the hospital the 2nd day for check for clot. He has been indep w/dressing and bathing. He has been walking around and then most of his time in his chair but gets up every hour. Son is helping w/ meals. IE:Pt reports he was set to get his hip replaced prior to COVID but that got cancelled. Pt has pain in R lat hip. Walking is uncomfortable and doesn't work. It catches and sometimes he gets stabs of pain and leg would give way. He fell a few times and sometimes was able to grab ahold of something. Pt notes sometimes pain wakes him at night. Certain movements including in/out of car cause stabbing pain. Has been using a SPC for about 3 years ago when he started getting the catches and give aways. Pt reports 2 [place] w/cabinet on side and has multilevel home but doens't need to get into the basement. His son is living with him and his . His son will be in and out and be able help out. Pt reports his is nearly blind so is limited in how much she can help. 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 He typically does most of the cooking but son will be able to take that over. Pt has walk in shower w/ grab bars w/built in seat and moveable one w/a back to it and rails on the side of it. He got a toilet seat riser but got the wrong size. He is planning ot take that back to get a different one. Pt has a cane and has a 4WW that he can help take the weight off and he does use it some in the house. He has a grabber, long handle shoe horn, and long handle shower brush. last oxy 48 hours ago Treatment Goals Patient/Caregiver Goals Be able to walk without a cane without pain, walk as far as his stamina will allow; be able to climb stairs reciprocally w/o pain or difficulty PT-OP-C Subjective Start: 03/02/23 17:00 Freq: Status: Active Protocol: Document 05/02/23 13:05 SP (Rec: 05/02/23 13:46 SP [id number]) OP-PT Subjective Patient Comments Patient Comments Pt reports accidently wore in his prescription sunglasses. He said walked to mailbox in gravel using cane x2 since last tx. He reports not as evangelical about performing HEP but being sure do some. He reports soreness pretty much gone, little bank in quad and along side ITB still little tender to touch. Has been up/ down stairs x2 few days ago L HR down. PT-OP-D Balance Start: 03/02/23 17:00 Freq: Status: Active Protocol: Document 04/25/23 11:30 LR (Rec: 04/25/23 11:40 [facility] [id number]) Balance Tests Single Limb Standing Single Limb- Right 5 sec Single Limb- Left 8 sec PT-OP-F Manual Assessment Start: 03/02/23 17:00 Freq: Status: Active Protocol: Document 03/28/23 14:33 LR (Rec: 03/28/23 16:34 [facility] [id number]) Manual Assessments Soft Tissue Assessment Soft Tissue Mobility Assessment swelling throguhout RLE and into calf and tenderness on ant aspect of thigh thrugh quad, ITB and add PT-OP-G Mobility & Gait Start: 03/02/23 17:00 Freq: Status: Active Protocol: Document 03/28/23 14:33 [facility] (Rec: 03/28/23 16:34 [facility] [id number]) OP Gait Assessment Comments Gait Comments pt amb w/spc w/dec stance time RLE and slight lat lean over RLE PT-OP-M Strength Start: 03/02/23 17:00 Freq: Status: Active Protocol: Document 04/25/23 11:30 [facility] (Rec: 04/25/23 11:40 [facility] [id number]) Hip Strength Hip Manual Muscle Testing Right Flexion (L2) 4- Good- Abduction 3+ Fair+ External Rotation 4- Good- Internal Rotation 4 Good Comments rot tested neutral Left Flexion (L2) 4+ Good+ Abduction 4 Good External Rotation 3+ Fair+ Internal Rotation 5 Normal Comments abd tested slight in flex position d/t pt tightness Knee Strength Knee Manual Muscle Testing Right Flexion (S2) 4+ Good+ Extension (L3) 4 Good Left Flexion (S2) 5 Normal Extension (L3) 4+ Good+ Ankle/Foot Strength Ankle and Foot Manual Muscle Testing Right Dorsiflexion (L4) 5 Normal Plantarflexion (S1) 5 Normal Comments tested seated B Left Dorsiflexion (L4) 5 Normal Plantarflexion (S1) 5 Normal PT-OP-Q Treatments Start: 03/02/23 17:00 Freq: Status: Active Protocol: Document 05/02/23 13:05 SP (Rec: 05/02/23 13:46 SP [id number]) Cardio Equipment Recumbent Elliptical (Biodex) Duration (Minutes) 5 Resistance 4 Seat Position 10 Other warm up, strength- 45RPMs Gym Equipment Shuttle Recovery Unilateral Squats Details B Resistance 50 (2 dark blue) Shuttle Recovery Platform Stable Reps/Time 15 Bilateral Squats Resistance 100 (4 dark blue) Shuttle Recovery Platform Stable Reps/Time 20 Therapeutic Exercises Standing Exercises stationary lunges Standing Exercise Name trialed in PT Side bilateral Equipment Used side shuttle balance rail support Reps/Minutes x10 each side Comments cued knee alignment with behind forefoot. side stepping Standing Exercise Name lateral stepping Resistance Tb #3 iliamna at shins Equipment Used rail support 0 UE Reps/Minutes 15 ft x2 laps Comments cued elongated posturing, soft TKE, eccentric return squat Standing Exercise Name sit to stand- added to HE Side bilateral Equipment Used mesh chair w/blue foam, no UE Reps/Minutes 5 reps x2 Comments scoot fwd, STS, hip hinge desc no UEs Gait Training Gait Activity walking Device Used 0 Distance/Duration clinic & ER hallway 200 ft + Treatment Focus R glut med/max support, soft knee HS support, elongated posture Comments -fwd wt shift glut & quad trunk over RLE -cues soft stepping in to LLE- improved R glut firing/hip abd/core fac/posturing midline support, maintains approx 50% of the time with cuing. stairs Comments up/down recip Socruiseby stairs (24 ) w/1 rail SBA Neuro Re-Education Treatment Balance Activities Foam Details WBOS (EO/EC) ,NBOS, stride stance Surface Foam black Equipment near outside shuttle balance Comments WBOS& NBOS: EO HTs horizontal/vertical EC 30 sec each stance Stride stance: EO HTs EC 30 sec PT-OP-T Assessment and Plan Start: 03/02/23 17:00 Freq: Status: Active Protocol: Document 05/02/23 13:05 SP (Rec: 05/02/23 13:46 SP [id number]) Physical Therapy Assessment Goals balance Button Cutting Machine Operator Goal (LTG) Pt will be able to do SLS for 5 sec B to show improved balance LTG Duration achieved 04/25/23 strength Snf Goal (LTG) Pt will be be able to score at least 4+/5 on all BLE MMT to show improved strenght to allow greater ease w/daily activities. 2/6-improved significanntly LTG Duration 06/15/23 stairs Short Term Goal (STG) Pt will be able to reciprocate up stairs w/o inc pain. STG Duration achieved 04/25 w/rail min Button Cutting Machine Operator Goal (LTG) Pt will be able to reciprocate down stairs w/o inc pain. 2/6-minor pain sup to knee but can recip w/rail LTG Duration 06/06/23 1 Button Cutting Machine Operator Goal (LTG) Pt will be able to return to walking and will be able to do up to 1 mile walks w/o hip pain greater than 1/10. 2/6-has only been doing inside and up/down stairs LTG Duration 06/06/23 Assessment Summary Assessment Pt good effort during ther ex today, cues for trunk and knee alignment corrections to allow for increased stability and less UE support. Cues give during gait wt shift R LE TKE stance time into eccentric/ soft stepping into LLE to normalize gait phases and glut engagement support on R. He continues require 1 UE support continuous steps due to muscle tiring. Pt improved EC balane up to 30 sec various foot positions uneven surfaces today. Physical Therapy Plan Frequency and Duration Frequency of Treatment 2x/Week Duration of treatment (weeks) 10 Plan of Care Start Date 03/28/23 Plan of Care End Date 06/06/23 Therapeutic Interventions Therapeutic Interventions Balance Training,Gait Training ,Home Exercise Program,Joint Mobilizations,Manual Therapy, Neuromuscular Re-education, Orthotic/Prosthetic Management ,Patient/Caregiver Education, Self-Care/Home Management,Soft Tissue Mobilization,Taping, Therapeutic Activities, Therapeutic Exercises Modalities Cold Pack/Ice Massage,Electric Stimulation,Hot Packs, Infrared Therapy,Ultrasound Next Visit Focus/Plan Next Note Type Treatment Note Next Visit Plan Next tx trial RLE uneven foam, LLE elevated on step + disc mini squat for hip strengthening. POC: work on hip strength and cont to progress into balance, gently work into ant hip soft tissue. advance leg press wt as able
--- NOTE | 2023-05-04 13:57 | PT.OTN ---
Current Diagnoses Unilateral primary osteoarthritis, right hip (05/04/23) Muscle weakness (generalized) (05/04/23) Difficulty in walking, not elsewhere classified (05/04/23) Physical Therapy Treatment Note PT-OP-A Visit Information Start: 03/02/23 17:00 Freq: Status: Active Protocol: Document 05/04/23 13:01 [facility] (Rec: 05/04/23 13:57 [facility] [id number]) Out-Patient Physical Therapy Visit Information Visit Information Visit Type Treatment Note Visit Note 06/27 Visit Start Time 13:01 Visit Stop Time 13:43 Visit Number 12 Number of CARAMEL CUTTER HAND Visits 0 PT-OP-B Current Condition Start: 03/02/23 17:00 Freq: Status: Active Protocol: Document 03/28/23 14:33 [facility] (Rec: 03/28/23 16:34 [facility] [id number]) Current Condition History of Current Condition Current Complaints R hip pain w/R FAITH ant planned 03/21/23 History of Current Condition 03/28-FAITH ant and he thinks hemay have gotten a hematoma. Hip is feeling good but R thigh has been painful. It is getting better. Pt was checked for a clot and it was all negative. He has his first follow up on . Pt using 4WW around the house. This is his first time going out of the house except going to the hospital the day for check for clot. He has been indep w/dressing and bathing. He has been walking around and then most of his time in his chair but gets up every hour. Son is helping w/ meals. IE:Pt reports he was set to get his hip replaced prior to COVID but that got cancelled. Pt has pain in R lat hip. Walking is uncomfortable and doesn't work. It catches and sometimes he gets stabs of pain and leg would give way. He fell a few times and sometimes was able to grab ahold of something. Pt notes sometimes pain wakes him at night. Certain movements including in/out of car cause stabbing pain. Has been using a SPC for about 3 years ago when he started getting the catches and give aways. Pt reports 2 [place] w/cabinet on side and has multilevel home but doens't need to get into the basement. His son is living with him and his . His son will be in and out and be able help out. Pt reports his is nearly blind so is limited in how much she can help. 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 He typically does most of the cooking but son will be able to take that over. Pt has walk in shower w/ grab bars w/built in seat and moveable one w/a back to it and rails on the side of it. He got a toilet seat riser but got the wrong size. He is planning ot take that back to get a different one. Pt has a cane and has a 4WW that he can help take the weight off and he does use it some in the house. He has a grabber, long handle shoe horn, and long handle shower brush. last oxy 48 hours ago Treatment Goals Patient/Caregiver Goals Be able to walk without a cane without pain, walk as far as his stamina will allow; be able to climb stairs reciprocally w/o pain or difficulty PT-OP-C Subjective Start: 03/02/23 17:00 Freq: Status: Active Protocol: Document 05/04/23 13:01 [facility] (Rec: 05/04/23 13:57 [facility] [id number]) OP-PT Subjective Patient Comments Patient Comments Pt reports his quad is still sore some. PT-OP-D Balance Start: 03/02/23 17:00 Freq: Status: Active Protocol: Document 04/25/23 11:30 [facility] (Rec: 04/25/23 11:40 [facility] [id number]) Balance Tests Single Limb Standing Single Limb- Right 5 sec Single Limb- Left 8 sec PT-OP-F Manual Assessment Start: 03/02/23 17:00 Freq: Status: Active Protocol: Document 03/28/23 14:33 [facility] (Rec: 03/28/23 16:34 [facility] [id number]) Manual Assessments Soft Tissue Assessment Soft Tissue Mobility Assessment swelling throguhout RLE and into calf and tenderness on ant aspect of thigh thrugh quad, ITB and add PT-OP-G Mobility & Gait Start: 03/02/23 17:00 Freq: Status: Active Protocol: Document 03/28/23 14:33 [facility] (Rec: 03/28/23 16:34 [facility] [id number]) OP Gait Assessment Comments Gait Comments pt amb w/spc w/dec stance time RLE and slight lat lean over RLE PT-OP-M Strength Start: 03/02/23 17:00 Freq: Status: Active Protocol: Document 04/25/23 11:30 [facility] (Rec: 04/25/23 11:40 [facility] [id number]) Hip Strength Hip Manual Muscle Testing Right Flexion (L2) 4- Good- Abduction 3+ Fair+ External Rotation 4- Good- Internal Rotation 4 Good Comments rot tested neutral Left Flexion (L2) 4+ Good+ Abduction 4 Good External Rotation 3+ Fair+ Internal Rotation 5 Normal Comments abd tested slight in flex position d/t pt tightness Knee Strength Knee Manual Muscle Testing Right Flexion (S2) 4+ Good+ Extension (L3) 4 Good Left Flexion (S2) 5 Normal Extension (L3) 4+ Good+ Ankle/Foot Strength Ankle and Foot Manual Muscle Testing Right Dorsiflexion (L4) 5 Normal Plantarflexion (S1) 5 Normal Comments tested seated B Left Dorsiflexion (L4) 5 Normal Plantarflexion (S1) 5 Normal PT-OP-Q Treatments Start: 03/02/23 17:00 Freq: Status: Active Protocol: Document 05/04/23 13:01 [facility] (Rec: 05/04/23 13:57 [facility] [id number]) Gym Equipment Shuttle Recovery Unilateral Squats Details B Resistance 50 (2 dark blue) Shuttle Recovery Platform Stable Reps/Time 20 Bilateral Squats Resistance 112 (4 dark blue) Shuttle Recovery Platform Stable Reps/Time 20 Shuttle Balance red clips Details balancing and balance w/head turns Comments fwd & side: WBOS, NBOS fwd: staggered stance B Therapeutic Exercises Standing Exercises stationary lunges Standing Exercise Name walking lunges in // bars-bar prn Side bilateral Reps/Minutes 6x10ft Comments cues for full ext w/standing squat Standing Exercise Name partial as able over chair Side bilateral Reps/Minutes 15 step up Standing Exercise Name lat step up/down Side bilateral Equipment Used 6 in step w/rail Reps/Minutes 10 L; 8 R Comments cues for control Manual Therapy Treatment Soft Tissue Mobilization quad Body Location R lat quad, ITB, TFL Mobilization Type Rolling Intensity/Depth Moderate Body Position Supine Neuro Re-Education Treatment Balance Activities hurdles Details 6 hurdles Reps/Duration 6x Comments recip over hurdles w/rail PT-OP-T Assessment and Plan Start: 03/02/23 17:00 Freq: Status: Active Protocol: Document 05/04/23 13:01 [facility] (Rec: 05/04/23 13:57 [facility] [id number]) Physical Therapy Assessment Goals balance Volunteer Firefighter Goal (LTG) Pt will be able to do SLS for 5 sec B to show improved balance LTG Duration achieved 04/25/23 strength Halfway Goal (LTG) Pt will be be able to score at least 4+/5 on all BLE MMT to show improved strenght to allow greater ease w/daily activities. 2/6-improved significanntly LTG Duration 06/15/23 stairs Short Term Goal (STG) Pt will be able to reciprocate up stairs w/o inc pain. STG Duration achieved 2/6 w/rail min Volunteer Firefighter Goal (LTG) Pt will be able to reciprocate down stairs w/o inc pain. 2/6-minor pain sup to knee but can recip w/rail LTG Duration 06/06/23 1 Halfway Goal (LTG) Pt will be able to return to walking and will be able to do up to 1 mile walks w/o hip pain greater than 1/10. 2/6-has only been doing inside and up/down stairs LTG Duration 06/06/23 Assessment Summary Assessment pt cont to advance w/exercsies but did struggle w/sidestep up w/6 in step today on R side . He cont to show improved balance and stability. Physical Therapy Plan Frequency and Duration Frequency of Treatment 2x/Week Duration of treatment (weeks) 10 Plan of Care Start Date 03/28/23 Plan of Care End Date 06/06/23 Next Visit Focus/Plan Next Note Type Treatment Note Next Visit Plan Next tx trial RLE uneven foam, LLE elevated on step + disc mini squat for hip strengthening. POC: work on hip strength and cont to progress into balance, gently work into ant hip soft tissue. advance leg press wt as able
--- NOTE | 2023-05-09 13:41 | PT.OTN ---
Current Diagnoses Unilateral primary osteoarthritis, right hip (05/09/23) Muscle weakness (generalized) (05/09/23) Difficulty in walking, not elsewhere classified (05/09/23) Physical Therapy Treatment Note PT-OP-A Visit Information Start: 03/02/23 17:00 Freq: Status: Active Protocol: Document 05/09/23 13:01 SP (Rec: 05/09/23 13:44 SP [id number]) Out-Patient Physical Therapy Visit Information Visit Information Visit Type Treatment Note Visit Note 07/27 Visit Start Time 13:01 Visit Stop Time 13:41 Visit Number 13 Number of PHOTOSTAT OPERATOR HELPER Visits 1 PT-OP-B Current Condition Start: 03/02/23 17:00 Freq: Status: Active Protocol: Document 03/28/23 14:33 LR (Rec: 03/28/23 16:34 [facility] [id number]) Current Condition History of Current Condition Current Complaints R hip pain w/R FAITH ant planned 03/21/23 History of Current Condition 03/28-FAITH ant and he thinks hemay have gotten a hematoma. Hip is feeling good but R thigh has been painful. It is getting better. Pt was checked for a clot and it was all negative. He has his first follow up on . Pt using 4WW around the house. This is his first time going out of the house except going to the hospital the day for check for clot. He has been indep w/dressing and bathing. He has been walking around and then most of his time in his chair but gets up every hour. Son is helping w/ meals. IE:Pt reports he was set to get his hip replaced prior to COVID but that got cancelled. Pt has pain in R lat hip. Walking is uncomfortable and doesn't work. It catches and sometimes he gets stabs of pain and leg would give way. He fell a few times and sometimes was able to grab ahold of something. Pt notes sometimes pain wakes him at night. Certain movements including in/out of car cause stabbing pain. Has been using a SPC for about 3 years ago when he started getting the catches and give aways. Pt reports 2 [place] w/cabinet on side and has multilevel home but doens't need to get into the basement. His son is living with him and his . His son will be in and out and be able help out. Pt reports his is nearly blind so is limited in how much she can help. 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 He typically does most of the cooking but son will be able to take that over. Pt has walk in shower w/ grab bars w/built in seat and moveable one w/a back to it and rails on the side of it. He got a toilet seat riser but got the wrong size. He is planning ot take that back to get a different one. Pt has a cane and has a 4WW that he can help take the weight off and he does use it some in the house. He has a grabber, long handle shoe horn, and long handle shower brush. last oxy 48 hours ago Treatment Goals Patient/Caregiver Goals Be able to walk without a cane without pain, walk as far as his stamina will allow; be able to climb stairs reciprocally w/o pain or difficulty PT-OP-C Subjective Start: 03/02/23 17:00 Freq: Status: Active Protocol: Document 05/09/23 13:01 SP (Rec: 05/09/23 13:44 SP [id number]) OP-PT Subjective Patient Comments Patient Comments Pt reports has surgeon appt this Th. Saw PA at 2 weeks. Saw his surgeons Pro David on TV commercial. Pt reports does pushups off counter and gets active calf stretch. PT-OP-D Balance Start: 03/02/23 17:00 Freq: Status: Active Protocol: Document 04/25/23 11:30 [facility] (Rec: 04/25/23 11:40 [facility] [id number]) Balance Tests Single Limb Standing Single Limb- Right 5 sec Single Limb- Left 8 sec PT-OP-F Manual Assessment Start: 03/02/23 17:00 Freq: Status: Active Protocol: Document 03/28/23 14:33 [facility] (Rec: 03/28/23 16:34 [facility] [id number]) Manual Assessments Soft Tissue Assessment Soft Tissue Mobility Assessment swelling throguhout RLE and into calf and tenderness on ant aspect of thigh thrugh quad, ITB and add PT-OP-G Mobility & Gait Start: 03/02/23 17:00 Freq: Status: Active Protocol: Document 03/28/23 14:33 [facility] (Rec: 03/28/23 16:34 [facility] [id number]) OP Gait Assessment Comments Gait Comments pt amb w/spc w/dec stance time RLE and slight lat lean over RLE PT-OP-M Strength Start: 03/02/23 17:00 Freq: Status: Active Protocol: Document 04/25/23 11:30 [facility] (Rec: 04/25/23 11:40 [facility] [id number]) Hip Strength Hip Manual Muscle Testing Right Flexion (L2) 4- Good- Abduction 3+ Fair+ External Rotation 4- Good- Internal Rotation 4 Good Comments rot tested neutral Left Flexion (L2) 4+ Good+ Abduction 4 Good External Rotation 3+ Fair+ Internal Rotation 5 Normal Comments abd tested slight in flex position d/t pt tightness Knee Strength Knee Manual Muscle Testing Right Flexion (S2) 4+ Good+ Extension (L3) 4 Good Left Flexion (S2) 5 Normal Extension (L3) 4+ Good+ Ankle/Foot Strength Ankle and Foot Manual Muscle Testing Right Dorsiflexion (L4) 5 Normal Plantarflexion (S1) 5 Normal Comments tested seated B Left Dorsiflexion (L4) 5 Normal Plantarflexion (S1) 5 Normal PT-OP-Q Treatments Start: 03/02/23 17:00 Freq: Status: Active Protocol: Document 05/09/23 13:01 SP (Rec: 05/09/23 13:44 SP [id number]) Gym Equipment Shuttle Recovery Unilateral Squats Details B Resistance 50 (2 dark blue)> 62# (2 navy) Shuttle Recovery Platform Stable Reps/Time 10 each LE Bilateral Squats Resistance 112 (4 dark blue) Shuttle Recovery Platform Stable Reps/Time 20 Shuttle Balance red clips Details balancing and balance w/head turns Reps/Duration 5 min: CG- Min A Comments fwd & side: WBOS, NBOS fwd: staggered stance B EC WBOS 5sec Therapeutic Exercises Sitting Exercises HS stretch Side bilateral Reps/Minutes 30 Standing Exercises calf stretch Standing Exercise Name single vs Bilat Side bilateral Equipment Used ZEINAB, rail support Reps/Minutes 30SH Comments good stretch stationary lunges Standing Exercise Name walking lunges in // bars-bar prn Side bilateral Reps/Minutes stationary x10 each pos, 1 lengths x10ft Comments cues for full ext w/standing, increase stride /c hip hinge mini split squat step up Standing Exercise Name lat step up/down Side bilateral Equipment Used 6 in step w/rail Reps/Minutes 10 L; 8 R Comments cues for control Other Exercises self STMs Other Exercise Name B quad Reps/Minutes 2 min total Comments good feedback response Gait Training Gait Activity walking Device Used 0 Distance/Duration clinic Treatment Focus R glut med/max support, soft knee HS support, elongated posture Comments -fwd wt shift into R glut & quad with soft stepping Improved after each L strengthening activitiy. Neuro Re-Education Treatment Balance Activities hurdles Details fwd, lateral: step to patterning /s rail Equipment 6 hurdles x2 laps each direction Reps/Duration 6x Comments cued tall over stance LE, softer/quieter stepping- improved with reps PT-OP-T Assessment and Plan Start: 03/02/23 17:00 Freq: Status: Active Protocol: Document 05/09/23 13:01 SP (Rec: 05/09/23 13:44 SP [id number]) Physical Therapy Assessment Goals balance Snf Goal (LTG) Pt will be able to do SLS for 5 sec B to show improved balance LTG Duration achieved 04/25/23 strength Snf Goal (LTG) Pt will be be able to score at least 4+/5 on all BLE MMT to show improved strenght to allow greater ease w/daily activities. 2/6-improved significanntly LTG Duration 06/15/23 stairs Short Term Goal (STG) Pt will be able to reciprocate up stairs w/o inc pain. STG Duration achieved 2/6 w/rail min Healthcare Manager Goal (LTG) Pt will be able to reciprocate down stairs w/o inc pain. 2/6-minor pain sup to knee but can recip w/rail LTG Duration 06/06/23 1 Snf Goal (LTG) Pt will be able to return to walking and will be able to do up to 1 mile walks w/o hip pain greater than 1/10. 2/6-has only been doing inside and up/down stairs LTG Duration 06/06/23 Assessment Summary Assessment Pt good effort during advance and resisted LE exercises today. Self quads STM review with rolling pin. Improved wt shift into RLE post ex and cueing for taller posturing and soft stepping factilitated core eccentric heel strike. Physical Therapy Plan Frequency and Duration Frequency of Treatment 2x/Week Duration of treatment (weeks) 10 Plan of Care Start Date 03/28/23 Plan of Care End Date 06/06/23 Therapeutic Interventions Therapeutic Interventions Balance Training,Gait Training ,Home Exercise Program,Joint Mobilizations,Manual Therapy, Neuromuscular Re-education, Orthotic/Prosthetic Management ,Patient/Caregiver Education, Self-Care/Home Management,Soft Tissue Mobilization,Taping, Therapeutic Activities, Therapeutic Exercises Modalities Cold Pack/Ice Massage,Electric Stimulation,Hot Packs, Infrared Therapy,Ultrasound Next Visit Focus/Plan Next Note Type Treatment Note Next Visit Plan Next tx trial RLE uneven foam, LLE elevated on step + disc mini squat for hip strengthening. POC: work on hip strength and cont to progress into balance, gently work into ant hip soft tissue. advance leg press wt as able
--- NOTE | 2023-05-11 12:18 | PT.OTN ---
Current Diagnoses Unilateral primary osteoarthritis, right hip (05/11/23) Muscle weakness (generalized) (05/11/23) Difficulty in walking, not elsewhere classified (05/11/23) Physical Therapy Treatment Note PT-OP-A Visit Information Start: 03/02/23 17:00 Freq: Status: Active Protocol: Document 05/11/23 08:29 AB (Rec: 05/11/23 12:18 AB [id number]) Out-Patient Physical Therapy Visit Information Visit Information Visit Type Treatment Note Visit Note 08/27 Access Code [email or web address] Visit Start Time 11:13 Visit Stop Time 11:59 Visit Number 15 Number of MANAGER GLOBAL Visits 2 Precautions Precautions No ER or extension PT-OP-B Current Condition Start: 03/02/23 17:00 Freq: Status: Active Protocol: Document 03/28/23 14:33 [facility] (Rec: 03/28/23 16:34 [facility] [id number]) Current Condition History of Current Condition Current Complaints R hip pain w/R FAITH ant planned 03/21/23 History of Current Condition 03/28-FAITH ant and he thinks hemay have gotten a hematoma. Hip is feeling good but R thigh has been painful. It is getting better. Pt was checked for a clot and it was all negative. He has his first follow up on . Pt using 4WW around the house. This is his first time going out of the house except going to the hospital the 2nd day for check for clot. He has been indep w/dressing and bathing. He has been walking around and then most of his time in his chair but gets up every hour. Son is helping w/ meals. IE:Pt reports he was set to get his hip replaced prior to COVID but that got cancelled. Pt has pain in R lat hip. Walking is uncomfortable and doesn't work. It catches and sometimes he gets stabs of pain and leg would give way. He fell a few times and sometimes was able to grab ahold of something. Pt notes sometimes pain wakes him at night. Certain movements including in/out of car cause stabbing pain. Has been using a SPC for about 3 years ago when he started getting the catches and give aways. Pt reports 2 [place] w/cabinet on side and has multilevel home but doens't need to get into the basement. His son is living with him and his . His son will be in and out and be able help out. Pt reports his is nearly blind so is limited in how much she can help. 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 He typically does most of the cooking but son will be able to take that over. Pt has walk in shower w/ grab bars w/built in seat and moveable one w/a back to it and rails on the side of it. He got a toilet seat riser but got the wrong size. He is planning ot take that back to get a different one. Pt has a cane and has a 4WW that he can help take the weight off and he does use it some in the house. He has a grabber, long handle shoe horn, and long handle shower brush. last oxy 48 hours ago Treatment Goals Patient/Caregiver Goals Be able to walk without a cane without pain, walk as far as his stamina will allow; be able to climb stairs reciprocally w/o pain or difficulty PT-OP-C Subjective Start: 03/02/23 17:00 Freq: Status: Active Protocol: Document 05/11/23 08:29 AB (Rec: 05/11/23 12:18 AB [id number]) OP-PT Subjective Patient Comments Patient Comments Patient reports he was sore post previous session, and is still sore. Patient reports he saw the surgeon, reports she took off a scab, and snipped of a suture. Jamie reports he feels that his leg is shorter and he spoke to Surgeon about this and reports she said it is maybe 1/4 inch shorter. PT-OP-D Balance Start: 03/02/23 17:00 Freq: Status: Active Protocol: Document 04/25/23 11:30 [facility] (Rec: 04/25/23 11:40 [facility] [id number]) Balance Tests Single Limb Standing Single Limb- Right 5 sec Single Limb- Left 8 sec PT-OP-F Manual Assessment Start: 03/02/23 17:00 Freq: Status: Active Protocol: Document 03/28/23 14:33 [facility] (Rec: 03/28/23 16:34 [facility] [id number]) Manual Assessments Soft Tissue Assessment Soft Tissue Mobility Assessment swelling throguhout RLE and into calf and tenderness on ant aspect of thigh thrugh quad, ITB and add PT-OP-G Mobility & Gait Start: 03/02/23 17:00 Freq: Status: Active Protocol: Document 03/28/23 14:33 [facility] (Rec: 03/28/23 16:34 [facility] [id number]) OP Gait Assessment Comments Gait Comments pt amb w/spc w/dec stance time RLE and slight lat lean over RLE PT-OP-M Strength Start: 03/02/23 17:00 Freq: Status: Active Protocol: Document 04/25/23 11:30 [facility] (Rec: 04/25/23 11:40 [facility] [id number]) Hip Strength Hip Manual Muscle Testing Right Flexion (L2) 4- Good- Abduction 3+ Fair+ External Rotation 4- Good- Internal Rotation 4 Good Comments rot tested neutral Left Flexion (L2) 4+ Good+ Abduction 4 Good External Rotation 3+ Fair+ Internal Rotation 5 Normal Comments abd tested slight in flex position d/t pt tightness Knee Strength Knee Manual Muscle Testing Right Flexion (S2) 4+ Good+ Extension (L3) 4 Good Left Flexion (S2) 5 Normal Extension (L3) 4+ Good+ Ankle/Foot Strength Ankle and Foot Manual Muscle Testing Right Dorsiflexion (L4) 5 Normal Plantarflexion (S1) 5 Normal Comments tested seated B Left Dorsiflexion (L4) 5 Normal Plantarflexion (S1) 5 Normal PT-OP-Q Treatments Start: 03/02/23 17:00 Freq: Status: Active Protocol: Document 05/11/23 08:29 AB (Rec: 05/11/23 12:18 AB [id number]) Therapeutic Exercises Supine Exercises glute squeeze Reps/Minutes X15 hip abduction Side right Resistance manual on second set Reps/Minutes 2X10 Comments verbal and tactile cues to avoid toeing out SLR Side right Reps/Minutes X10 Standing Exercises sit to stand Side bilateral Reps/Minutes 2X10 Comments Verbal cues to lower heels to floor slowly side stepping Side bilateral Resistance level one light blue band Reps/Minutes 2 min without band 1 min with band Comments Verbal cues and monitored for avoiding toe out heel raises Side bilateral Reps/Minutes 3X10 Comments with UE support, VC to lower heels to floor slowly Manual Therapy Treatment Soft Tissue Mobilization quad Body Location R lat quad, ITB, TFL, hip flexor at groin Mobilization Type Cross-Friction,Rolling Intensity/Depth Moderate Body Position Hooklying scar Body Location right hip Mobilization Type Cross-Friction,Rolling Intensity/Depth Superficial Body Position Hooklying Neuro Re-Education Treatment Balance Activities step up taps Equipment 6 inch step Reps/Duration X10 each LE Comments CGA, hands above parallel bars marching Details hands above bars Equipment one blue foam and blue pad Reps/Duration X10 X 2 Comments CGA SLS Details with visual scanning Reps/Duration 2 min Comments CGA left and right LE hands above bars to use as needed Self-Care/Home Management Treatment Education Other Education Patient ed to discontinue previous exercises, with the exception of glute set/squeeze Activities Self-Care/Home Management Activities HEP, sit to stand, side stepping with UE support, and bilateral heel raise for improving control of fwd momentum during ambulation PT-OP-T Assessment and Plan Start: 03/02/23 17:00 Freq: Status: Active Protocol: Document 05/11/23 08:29 AB (Rec: 05/11/23 12:18 AB [id number]) Physical Therapy Assessment Goals balance Skilled Nursing Goal (LTG) Pt will be able to do SLS for 5 sec B to show improved balance LTG Duration achieved 04/25/23 strength [employer] Sales Consultant Goal (LTG) Pt will be be able to score at least 4+/5 on all BLE MMT to show improved strenght to allow greater ease w/daily activities. 2/6-improved significanntly LTG Duration 06/15/23 stairs Short Term Goal (STG) Pt will be able to reciprocate up stairs w/o inc pain. STG Duration achieved 2/6 w/rail min [employer] Sales Consultant Goal (LTG) Pt will be able to reciprocate down stairs w/o inc pain. 2/6-minor pain sup to knee but can recip w/rail LTG Duration 06/06/23 1 Skilled Nursing Goal (LTG) Pt will be able to return to walking and will be able to do up to 1 mile walks w/o hip pain greater than 1/10. 2/6-has only been doing inside and up/down stairs LTG Duration 06/06/23 Assessment Summary Assessment Patient reports having no pain end of session, ambulating out of session without device. Physical Therapy Plan Frequency and Duration Frequency of Treatment 2x/Week Duration of treatment (weeks) 10 Plan of Care Start Date 03/28/23 Plan of Care End Date 06/06/23 Next Visit Focus/Plan Next Note Type Treatment Note Next Visit Plan Possibly add weight to sit to stand, side stepping with band in clinic, leg press, balance and manual therapy
--- NOTE | 2023-05-16 13:49 | PT.OTN ---
Current Diagnoses Unilateral primary osteoarthritis, right hip (05/16/23) Muscle weakness (generalized) (05/16/23) Difficulty in walking, not elsewhere classified (05/16/23) Physical Therapy Treatment Note PT-OP-A Visit Information Start: 03/02/23 17:00 Freq: Status: Active Protocol: Document 05/16/23 13:00 [facility] (Rec: 05/16/23 13:49 [facility] [id number]) Out-Patient Physical Therapy Visit Information Visit Information Visit Type Treatment Note Visit Note 08/27 Access Code [email or web address] Visit Start Time 13:03 Visit Stop Time 13:44 Visit Number 16 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 Hip is feeling good but R thigh has been painful. It is getting better. Pt was checked for a clot and it was all negative. He has his first follow up on . Pt using 4WW around the house. This is his first time going out of the house except going to the hospital the day for check for clot. He has been indep w/dressing and bathing. He has been walking around and then most of his time in his chair but gets up every hour. Son is helping w/ meals. IE:Pt reports he was set to get his hip replaced prior to COVID but that got cancelled. Pt has pain in R lat hip. Walking is uncomfortable and doesn't work. It catches and sometimes he gets stabs of pain and leg would give way. He fell a few times and sometimes was able to grab ahold of something. Pt notes sometimes pain wakes him at night. Certain movements including in/out of car cause stabbing pain. Has been using a SPC for about 3 years ago when he started getting the catches and give aways. Pt reports 2 [place] w/cabinet on side and has multilevel home but doens't need to get into the basement. His son is living with him and his . His son will be in and out and be able help out. Pt reports his is nearly blind so is limited in how much she can help. 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 He typically does most of the cooking but son will be able to take that over. Pt has walk in shower w/ grab bars w/built in seat and moveable one w/a back to it and rails on the side of it. He got a toilet seat riser but got the wrong size. He is planning ot take that back to get a different one. Pt has a cane and has a 4WW that he can help take the weight off and he does use it some in the house. He has a grabber, long handle shoe horn, and long handle shower brush. last oxy 48 hours ago Treatment Goals Patient/Caregiver Goals Be able to walk without a cane without pain, walk as far as his stamina will allow; be able to climb stairs reciprocally w/o pain or difficulty PT-OP-C Subjective Start: 03/02/23 17:00 Freq: Status: Active Protocol: Document 05/16/23 13:00 [facility] (Rec: 05/16/23 13:49 [facility] [id number]) OP-PT Subjective Patient Comments Patient Comments Pt reports R quad sore today but unsure why. He walked for an hr in [employer] this weekend but it felt okay. Reports he doens't have restrictions PT-OP-D Balance Start: 03/02/23 17:00 Freq: Status: Active Protocol: Document 04/25/23 11:30 [facility] (Rec: 04/25/23 11:40 [facility] [id number]) Balance Tests Single Limb Standing Single Limb- Right 5 sec Single Limb- Left 8 sec PT-OP-F Manual Assessment Start: 03/02/23 17:00 Freq: Status: Active Protocol: Document 03/28/23 14:33 [facility] (Rec: 03/28/23 16:34 [facility] [id number]) Manual Assessments Soft Tissue Assessment Soft Tissue Mobility Assessment swelling throguhout RLE and into calf and tenderness on ant aspect of thigh thrugh quad, ITB and add PT-OP-G Mobility & Gait Start: 03/02/23 17:00 Freq: Status: Active Protocol: Document 03/28/23 14:33 [facility] (Rec: 03/28/23 16:34 [facility] [id number]) OP Gait Assessment Comments Gait Comments pt amb w/spc w/dec stance time RLE and slight lat lean over RLE PT-OP-M Strength Start: 03/02/23 17:00 Freq: Status: Active Protocol: Document 04/25/23 11:30 [facility] (Rec: 04/25/23 11:40 [facility] [id number]) Hip Strength Hip Manual Muscle Testing Right Flexion (L2) 4- Good- Abduction 3+ Fair+ External Rotation 4- Good- Internal Rotation 4 Good Comments rot tested neutral Left Flexion (L2) 4+ Good+ Abduction 4 Good External Rotation 3+ Fair+ Internal Rotation 5 Normal Comments abd tested slight in flex position d/t pt tightness Knee Strength Knee Manual Muscle Testing Right Flexion (S2) 4+ Good+ Extension (L3) 4 Good Left Flexion (S2) 5 Normal Extension (L3) 4+ Good+ Ankle/Foot Strength Ankle and Foot Manual Muscle Testing Right Dorsiflexion (L4) 5 Normal Plantarflexion (S1) 5 Normal Comments tested seated B Left Dorsiflexion (L4) 5 Normal Plantarflexion (S1) 5 Normal PT-OP-Q Treatments Start: 03/02/23 17:00 Freq: Status: Active Protocol: Document 05/16/23 13:00 [facility] (Rec: 05/16/23 13:49 [facility] [id number]) Gym Equipment Shuttle Balance red clips Details w/head turns Comments fwd & side: WBOS, NBOS fwd: staggered stance B Therapeutic Exercises Standing Exercises stationary lunges Standing Exercise Name stationary mini lunge Side bilateral Reps/Minutes 10 side stepping Side bilateral Resistance L3 band Reps/Minutes 20ft x2 squat Standing Exercise Name partial as able over chair-aim to tap Side bilateral Reps/Minutes 15 step up Standing Exercise Name fwd Side right Equipment Used 6 in w/rail prn Reps/Minutes 8 may Side bilateral Equipment Used L3 Reps/Minutes 10 Neuro Re-Education Treatment Balance Activities hurdles Equipment dec rail use; 6 hurdles Comments fwd recip x6 lat x2 B SLS Comments B trials Self-Care/Home Management Treatment Education Other Education 8 min: review of HEP and discussion of progression at home. Edu to start inc his walking to strengthen. edu improtance of balance. Edu re: how pelvis could be part of leg length chagne if there is one. PT-OP-T Assessment and Plan Start: 03/02/23 17:00 Freq: Status: Active Protocol: Document 05/16/23 13:00 [facility] (Rec: 05/16/23 13:49 [facility] [id number]) Physical Therapy Assessment Goals balance Pediatrician Active Practice Goal (LTG) Pt will be able to do SLS for 5 sec B to show improved balance LTG Duration achieved 04/25/23 strength Pediatrician Active Practice Goal (LTG) Pt will be be able to score at least 4+/5 on all BLE MMT to show improved strenght to allow greater ease w/daily activities. 2/6-improved significanntly LTG Duration 06/15/23 stairs Short Term Goal (STG) Pt will be able to reciprocate up stairs w/o inc pain. STG Duration achieved 2/6 w/rail min Long-Term Goal (LTG) Pt will be able to reciprocate down stairs w/o inc pain. 2/6-minor pain sup to knee but can recip w/rail LTG Duration 06/06/23 1 Long-Term Goal (LTG) Pt will be able to return to walking and will be able to do up to 1 mile walks w/o hip pain greater than 1/10. 2/6-has only been doing inside and up/down stairs LTG Duration 06/06/23 Assessment Summary Assessment Pt did well with balance today and w/inc challenge for HEP. Pt given handout. He was encouraged to inc his walking. Physical Therapy Plan Frequency and Duration Frequency of Treatment 2x/Week Duration of treatment (weeks) 10 Plan of Care Start Date 03/28/23 Plan of Care End Date 06/06/23 Next Visit Focus/Plan Next Note Type Discharge Summary Next Visit Plan go over scar tissue work and indep w/hEP
--- NOTE | 2023-05-18 12:00 | PT.OTN ---
Current Diagnoses Unilateral primary osteoarthritis, right hip (05/18/23) Muscle weakness (generalized) (05/18/23) Difficulty in walking, not elsewhere classified (05/18/23) Physical Therapy Treatment Note PT-OP-A Visit Information Start: 03/02/23 17:00 Freq: Status: Active Protocol: Document 05/18/23 09:29 [facility] (Rec: 05/18/23 12:00 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 (Rec: 03/28/23 16:34 [facility] [id number]) Current Condition History of Current Condition Current Complaints R hip pain w/R FAITH ant planned 03/21/23 History of Current Condition 03/28-FAITH ant and he thinks hemay have gotten a hematoma. Hip is feeling good but R thigh has been painful. It is getting better. Pt was checked for a clot and it was all negative. He has his first follow up on . Pt using 4WW around the house. This is his first time going out of the house except going to the hospital the day for check for clot. He has been indep w/dressing and bathing. He has been walking around and then most of his time in his chair but gets up every hour. Son is helping w/ meals. IE:Pt reports he was set to get his hip replaced prior to COVID but that got cancelled. Pt has pain in R lat hip. Walking is uncomfortable and doesn't work. It catches and sometimes he gets stabs of pain and leg would give way. He fell a few times and sometimes was able to grab ahold of something. Pt notes sometimes pain wakes him at night. Certain movements including in/out of car cause stabbing pain. Has been using a SPC for about 3 years ago when he started getting the catches and give aways. Pt reports 2 [place] w/cabinet on side and has multilevel home but doens't need to get into the basement. His son is living with him and his . His son will be in and out and be able help out. Pt reports his is nearly blind so is limited in how much she can help. 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 He typically does most of the cooking but son will be able to take that over. Pt has walk in shower w/ grab bars w/built in seat and moveable one w/a back to it and rails on the side of it. He got a toilet seat riser but got the wrong size. He is planning ot take that back to get a different one. Pt has a cane and has a 4WW that he can help take the weight off and he does use it some in the house. He has a grabber, long handle shoe horn, and long handle shower brush. last oxy 48 hours ago Treatment Goals Patient/Caregiver Goals Be able to walk without a cane without pain, walk as far as his stamina will allow; be able to climb stairs reciprocally w/o pain or difficulty PT-OP-C Subjective Start: 03/02/23 17:00 Freq: Status: Active Protocol: Document 05/18/23 09:29 [facility] (Rec: 05/18/23 12:00 [facility] [id number]) OP-PT Subjective Patient Comments Patient Comments Pt reports did not walk yesterday d/t the weather PT-OP-D Balance Start: 03/02/23 17:00 Freq: Status: Active Protocol: Document 04/25/23 11:30 [facility] (Rec: 04/25/23 11:40 [facility] [id number]) Balance Tests Single Limb Standing Single Limb- Right 5 sec Single Limb- Left 8 sec PT-OP-F Manual Assessment Start: 03/02/23 17:00 Freq: Status: Active Protocol: Document 03/28/23 14:33 [facility] (Rec: 03/28/23 16:34 [facility] [id number]) Manual Assessments Soft Tissue Assessment Soft Tissue Mobility Assessment swelling throguhout RLE and into calf and tenderness on ant aspect of thigh thrugh quad, ITB and add PT-OP-G Mobility & Gait Start: 03/02/23 17:00 Freq: Status: Active Protocol: Document 03/28/23 14:33 [facility] (Rec: 03/28/23 16:34 [facility] [id number]) OP Gait Assessment Comments Gait Comments pt amb w/spc w/dec stance time RLE and slight lat lean over RLE PT-OP-M Strength Start: 03/02/23 17:00 Freq: Status: Active Protocol: Document 05/18/23 09:29 [facility] (Rec: 05/18/23 12:00 [facility] [id number]) Hip Strength Hip Manual Muscle Testing Right Flexion (L2) 4 Good Abduction 4 Good External Rotation 4 Good Internal Rotation 4+ Good+ Left Flexion (L2) 4+ Good+ Abduction 4 Good External Rotation 4 Good Internal Rotation 5 Normal Comments abd tested slight in flex position d/t pt tightness Knee Strength Knee Manual Muscle Testing Right Flexion (S2) 5 Normal Extension (L3) 5 Normal Left Flexion (S2) 5 Normal Extension (L3) 4+ Good+ Ankle/Foot Strength Ankle and Foot Manual Muscle Testing Right Dorsiflexion (L4) 5 Normal Plantarflexion (S1) 5 Normal Comments tested seated B Left Dorsiflexion (L4) 5 Normal Plantarflexion (S1) 5 Normal PT-OP-Q Treatments Start: 03/02/23 17:00 Freq: Status: Active Protocol: Document 05/18/23 09:29 [facility] (Rec: 05/18/23 12:00 [facility] [id number]) Therapeutic Exercises Standing Exercises stationary lunges Standing Exercise Name stationary mini lunge Side bilateral Reps/Minutes 10 Comments cues for stride length side stepping Side bilateral Resistance L3 band Reps/Minutes 20ft x2 squat Standing Exercise Name partial as able over chair-aim to tap Side bilateral Reps/Minutes 15 Comments cues for full range step up Standing Exercise Name fwd Side right Equipment Used 6 in w/rail prn Reps/Minutes 15 knee flex Standing Exercise Name for quad stretch Side bilateral Reps/Minutes 15 ea march Side bilateral Equipment Used L3 Reps/Minutes 10 Other Exercises isometrics Other Exercise Name LE MMT Side bilateral Manual Therapy Treatment Soft Tissue Mobilization scar Body Location right hip Mobilization Type Cross-Friction,Rolling Intensity/Depth Superficial Body Position Supine Neuro Re-Education Treatment Balance Activities hurdles Equipment dec rail use; 6 hurdles Comments fwd recip x6 lat x2 B SLS Comments B trials PT-OP-T Assessment and Plan Start: 03/02/23 17:00 Freq: Status: Active Protocol: Document 05/18/23 09:29 [facility] (Rec: 05/18/23 12:00 [facility] [id number]) Physical Therapy Assessment Goals balance Care Home Goal (LTG) Pt will be able to do SLS for 5 sec B to show improved balance LTG Duration achieved 04/25/23 strength Care Home Goal (LTG) Pt will be be able to score at least 4+/5 on all BLE MMT to show improved strenght to allow greater ease w/daily activities. 2-improved significanntly LTG Duration much improved and more equal stairs Short Term Goal (STG) Pt will be able to reciprocate up stairs w/o inc pain. STG Duration achieved /6 w/rail min Heart Surgeon Goal (LTG) Pt will be able to reciprocate down stairs w/o inc pain. 04/25-minor pain sup to knee but can recip w/rail LTG Duration achieved 1 Heart Surgeon Goal (LTG) Pt will be able to return to walking and will be able to do up to 1 mile walks w/o hip pain greater than 1/10. 04/25-has only been doing inside and up/down stairs LTG Duration has started to do walks to [employer] so far d/t weather but did walk [employer] Assessment Summary Assessment Pt did well with exercises today w/min cueing for control and posture. He was educated on working on scar superficial and moderate pressure. He has made excellent progress and does not feel like hip is limiting him from anything. DC to HEP at this time to cont to advance strength Physical Therapy Plan Discharge Physical Therapy Discharge Reasons Goals Met
== END 2023-05-30 07:43 | disposition home or self-care (01) ==
LOC: PHYS 11:15
PROVIDERS: Family Provider Family Medicine; PCP Family Medicine; Referring Provider Orthopaedic Surgery; Visit Provider Orthopaedic Surgery
DX: M16.11 Unilateral primary osteoarthritis, right hip (principal); M62.81 Muscle weakness (generalized); R26.2 Difficulty in walking, not elsewhere classified
CPT/HCPCS: 97110; 97112; 97116; 97140; 97162; 97164; 97530; 97535

== ENCOUNTER 2023-05-19 17:58 | Emergency (ER) | payer MEDICARE, OTHER, SELFPAY ==
[2023-03-21 06:27] VITALS: BMI 28.9
[2023-05-19 18:16] VITALS: BP 172/77; PULSE 77; RESP 16; TEMP 36.6; O2SAT 100; BMI 14.0
--- NOTE | 2023-05-19 18:19 | DI.RAD.S_ITS ---
PROCEDURE: XR FINGER RT MIN 2V INDICATIONS: cut middle finger on saw TECHNIQUE: AP hand, 2 views of the 3rd finger(s) acquired. COMPARISON: None. FINDINGS: Bones: On lateral view, possible irregularity at the distal tuft dorsal surface. Scattered mild degenerative changes elsewhere. Soft tissues: Soft tissue injury with bandaging. IMPRESSION: Questionable irregularity at the dorsal surface of the distal tuft on lateral view. No displaced fracture is identified. Soft tissue injury with bandaging in place. Dictated by: Dar Herrera M.D. on 05/19/2023 at 18:57 Approved by: Dar Herrera M.D. on 05/19/2023 at 18:58
[2023-05-19] MEDS: TET,DIPH,PERTUSS(ACELL),VAC/PF 0.5 ML SYRINGE IM (19:33)
--- NOTE | 2023-05-19 19:34 | ED_ITS ---
HPI - Wound/Laceration General Chief Complaint: Wound/Laceration Stated Complaint: rt hand middle finger injury Time Seen by Provider: 05/19/23 19:34 Source: patient Mode of arrival: Ambulatory History of Present Illness HPI narrative: 87-year-old male with injury to his right middle finger on his right hand. Patient was using a blade when it went down the middle of his finger catching of the nail as well. Patient is on Eliquis for atrial fibrillation. States tetanus is not up-to-date. Has pain denies any numbness tingling. Has been able to flex and extend it. Denies any other injuries. Related Data Home Medications Medication Instructions Recorded Confirmed apixaban 5 mg tablet (Eliquis) 5 mg PO BID ##0 08/25/16 03/21/23 cetirizine 10 mg tablet 10 mg PO DAILY ##0 08/25/16 03/21/23 magnesium oxide 400 mg (241.3 mg 400 mg PO DIRECTED ##0 08/25/16 03/21/23 magnesium) tablet losartan 50 mg-hydrochlorothiazide 1 tab PO DAILY ##0 10/18/17 03/21/23 12.5 mg tablet atorvastatin 20 mg tablet 20 mg PO BEDTIME 11/08/17 03/21/23 fluticasone furoate 27.5 1 spry intranasal DAILY 11/08/17 03/21/23 mcg/actuation nasal spray,suspension cholecalciferol (vitamin D3) 25 1,000 unit PO BEDTIME 03/27/19 03/09/23 mcg (1,000 unit) capsule acetaminophen 500 mg tablet 1,000 mg PO BID 08/23/21 03/21/23 vit C 250 mg-vit E 90 mg-zinc 40 1 tab PO BID 08/23/21 03/09/23 mg-copper 1 [id number] capsule (PreserVision AREDS-2) metoprolol tartrate 25 mg tablet 75 mg PO QAM 08/30/21 03/21/23 metoprolol tartrate 25 mg tablet 25 mg PO BEDTIME 03/09/23 03/21/23 Previous Rx's Medication Instructions Recorded omeprazole 20 mg capsule,delayed See Rx Instructions .Route 01/24/22 release .COMPLEX #180 caps ipratropium bromide 21 mcg (0.03 2 spray intranasal BID-TID PRN 05/18/23 %) nasal spray allergy symptoms #90 mL cephalexin 500 mg capsule 500 mg PO Q6H #20 caps 05/19/23 Allergies Allergy/AdvReac Type Severity Reaction Status Date / Time No Known Drug Allergies Allergy Verified 03/23/23 10:19 Review of Systems Review of Systems ROS Unobtainable: All systems reviewed & are unremarkable except as noted in HPI and below Patient History Medical History Scarlet fever Dilated cardiomyopathy Hyperparathyroidism Hypercalcemia PAF (paroxysmal atrial fibrillation) Non-sustained ventricular tachycardia Anesthesia complication Polio Ventral incisional hernia without obstruction or gangrene Status post aorto-coronary artery bypass graft Atrial fibrillation Cataract CAD (coronary artery disease) Hyperlipidemia Hypertension Kidney stones Brown's syndrome Prostate cancer Aortic regurgitation Surgical History History of partial thyroidectomy H/O radical prostatectomy S/P right knee arthroscopy History of heart bypass surgery (2008) History of hernia repair History of tonsillectomy Hx of inguinal hernia surgery H/O arthroscopic knee surgery Status post transurethral resection of prostate Status post coronary artery bypass graft (2008) Family History Father Hypertension Colon cancer Arrhythmia Mother Hypertension Alzheimer's disease Social History marital status: household members: spouse and children Smoking Status: Never smoker alcohol intake: current substance use type: does not use Smoking Status: Never smoker alcohol intake frequency: holidays/special occasions only Substance Use Type: does not use Exam Narrative Exam Narrative: GENERAL: Alert and oriented x three, mild distress HEENT: Head normocephalic, atraumatic, EOMI, pupils reactive, face symmetric, moist mucous membranes NECK: Supple, full range of motion CARDIOVASCULAR: Regular rate and rhythm without murmurs, rubs or gallops. RESPIRATORY: Breath sounds equal bilaterally, no wheezes rales or rhonchi. ABDOMEN: Soft, nontender. Normoactive bowel sounds all 4 quadrants. No gua rding or rebound, rigidity, no mass EXTREMITIES: Normal range of motion, no clubbing or edema. Neurovascularly intact. Patient has 3rd digit, has a linear laceration in the soft tissue just distal interphalangeal joint and over the nail. Nail majority intact. Is deep into the subcutaneous but does not appear to be to the bone. NEUROLOGICAL: Cranial nerves II through XII grossly intact. Moving all extremities SKIN: Warm, dry, no petechiae, no rashes or lesions. Initial Vital Signs Initial Vital Signs: Vital Signs Temperature 98 F 05/19/23 18:16 Pulse Rate 77 05/19/23 18:16 Respiratory Rate 16 05/19/23 18:16 Blood Pressure 172/77 H 05/19/23 18:16 Pulse Oximetry 100 05/19/23 18:16 Oxygen Delivery Method Room Air 05/19/23 18:16 Procedures Laceration Repair Laceration 1: Time of procedure: 20:36 Site: other (finger) Side (If applicable): right Size (cm): 2.3 Description: linear and irregular Depth: simple, single layer Local Anesthetic: lidocaine 2% Amount of anesthesia used (mL): 2.5 Pre-repair: wound explored, irrigated extensively and deep structures intact Skin layer closed with: nylon Skin layer suture size: 4-0 Number of sutures: 6 Technique: simple, interrupted Course Orders Ordered: Discontinued Medications Cefazolin Sodium (Cephalexin 250 Mg Cap Prepack) 1 bottle MISC DIRECTED ONE Stop: 05/19/23 19:41 Last Admin: 05/19/23 20:39 Dose: 1 bottle Documented By: LESLEE Diphtheria/Tetanus/Acell Pertussis (Tet,Diph,Pertuss(Acell),Vac/Pf 0.5 Ml Syringe) 0.5 ml IM .ONCE ONE Stop: 05/19/23 18:44 Last Admin: 05/19/23 19:33 Dose: 0.5 ml Documented By: ANTONIO Lidocaine HCl (Lidocaine 2% Inj Sdv 5ml) 10 ml INJ INTRA-OP ONE Stop: 05/19/23 19:41 Last Admin: 05/19/23 20:59 Dose: 10 ml Documented By: LESLEE Vital Signs Vital signs: Vital Signs - 8 hr 05/19/23 18:16 Temperature 98 F Pulse Rate 77 Respiratory Rate 16 Blood Pressure 172/77 H Pulse Oximetry 100 Oxygen Delivery Method Room Air MDM - Wound/Laceration Imaging Data Extremity x-ray #1: Radiologist's Impression: Close Finger X-Ray (Signed) Dar Herrera - 05/19/23 Pelvis X-Ray (Signed) Marcelle Hunter - 03/23/23 Vascular Ultrasound (Signed) WileyMi - 03/23/23 Hip X-Ray (Signed) Emily Barnett - 03/21/23 Hip X-Ray (Signed) Alesha Gates - 03/21/23 Outside Stress Test 01/03/23 Lumbar Spine MRI (Signed) HunterChico ceronestefania - 07/11/22 Hip X-Ray (Signed) Mi Wiley - 07/11/22 Carotid Doppler Study (Signed) Yahir Faustin - 12/16/21 Telemetry Strips 08/23/21 Echocardiogram Ultrasound (Signed) Ronald Guillen - 07/05/21 Modified Barium Swallow (Signed) Christelle Medina - 06/25/21 Hip X-Ray (Signed) RedSukumar - 03/27/19 Renal Ultrasound (Signed) Yahir Faustin - 09/05/18 Thyroid Ultrasound (Signed) Mitra Aguilar - 08/31/18 Echocardiogram Ultrasound (Signed) Ronald Guillen - 05/03/18 Telemetry Strips 11/17/17 Joint Aspiration/Injection (Signed) Ghassan Graham - 09/29/17 [place] [address] XRay Report Signed Patient: Jamie Jones MR#: [id number] : 1935 Acct:[id number] Age/Sex: 87 / M Date of Service: 05/19/23 Loc: ED Accession Number: [id number] Procedure: XR finger RT min 2V Ordering Provider: Rachel Toscano D.O. PROCEDURE: XR FINGER RT MIN 2V INDICATIONS: cut middle finger on saw TECHNIQUE: AP hand, 2 views of the 3rd finger(s) acquired. COMPARISON: None. FINDINGS: Bones: On lateral view, possible irregularity at the distal tuft dorsal surface. Scattered mild degenerative changes elsewhere. Soft tissues: Soft tissue injury with bandaging. IMPRESSION: Questionable irregularity at the dorsal surface of the distal tuft on lateral view. No displaced fracture is identified. Soft tissue injury with bandaging in place. Dictated by: Dar Herrera M.D. on 05/19/2023 at 18:57 Approved by: Dar Herrera M.D. on 05/19/2023 at 18:58 MDM Narrative Medical decision making narrative: This is an 87-year-old male who comes to the emergency department with complaint of laceration his right middle finger. As laceration the distal 3rd finger, who is relatively intact the laceration makes a linear cut through the top of the nail but not through the daily entirety, it does affect the nail bed but the majority of nail is intact. Patient is neurovascularly intact. X-ray imaging does show slight injury to the bone. Patient had would irrigated, verbal consent for digital block, sutured laceration over the skin in a small amount of Dermabond placed over the gap of the nail to facilitate protection. This time I would not remove the nail as it is otherwise well intact. Bandage add antibiotics for infection risk. Patient given contact for follow up with Orthopedic surgery. Discharge Plan Departure Patient Disposition: Home Clinical Impression: Laceration of finger Qualifiers: Encounter type: initial encounter Finger: middle finger Damage to nail status: with damage Foreign body presence: without foreign body Laterality: right Qualified Code(s): S61.312A - Laceration without foreign body of right middle finger with damage to nail, initial encounter Instructions: DI for Laceration Repair Activity Restrictions/Additional Instructions: Follow up with your physician or orthopedic surgery for recheck and removal of your sutures. Prescription for keflex sent to [facility] Wound Care: Keep wound(s) clean and dry. Wash daily with soap and water only. Do not use over the counter products (alcohol or peroxide)on the wounds unless instructed by a physician. If wound condition worsens (increased/expanding redness, developing fluid blisters, or worsening pain), either contact your doctor for an urgent re- assessment , or return to the Emergency Department. Return to the Emergency Department for any new or worsening symptoms. Return to the ED, urgent care, or vist a primary care doctor for removal or suture in 7-10 days Return if fever greater than 100.4 Fahrenheit, increased swelling, increasing pain or worsening symptoms such as increased discharge or spreading redness. Prescriptions: New cephalexin 500 mg capsule 500 mg PO Q6H Qty: 20 0RF No Action cetirizine 10 MG tablet 10 mg PO DAILY Qty: 0 magnesium oxide 400 MG tablet 400 mg PO DIRECTED Qty: 0 Rx Instructions: 800 mg qam and 400 qpm Eliquis 5 MG tablet 5 mg PO BID Qty: 0 omeprazole 20 mg capsule,delayed release(DR/EC) See Rx Instructions .ROUTE .COMPLEX Qty: 180 3RF Dose Instruction: TAKE 1 CAPSULE TWICE DAILY Rx Instructions: TAKE 1 CAPSULE TWICE DAILY ipratropium bromide 21 mcg (0.03 %) spray,non-aerosol 2 spray intranasal BID-TID PRN (Reason: allergy symptoms) Qty: 90 3RF Rx Instructions: administer into each nostril fluticasone furoate 27.5 mcg/actuation [place],Suspension 1 spry Intranasal DAILY atorvastatin 20 mg Tablet 20 mg PO BEDTIME metoprolol tartrate 25 mg Tablet 25 mg PO BEDTIME losartan-hydrochlorothiazide 50-12.5 mg Tablet 1 tab PO DAILY Qty: 0 PreserVision AREDS-2 250-90-40-1 mg Capsule 1 tab PO BID acetaminophen 500 mg Tablet 1,000 mg PO BID metoprolol tartrate 25 mg tablet 75 mg PO QAM cholecalciferol (vitamin D3) 1,000 unit capsule 1,000 unit PO BEDTIME Referrals: Tiago May MD [Primary Care Provider] - Stand Alone Forms: Patient Portal/API
[2023-05-19 20:34] VITALS: BP 148/79; PULSE 90; RESP 18; O2SAT 99
[2023-05-19] MEDS: cephALEXin 250 MG CAP PREPACK 1 BOTTLE MISC (20:39)
[2023-05-19] MEDS: LIDOCAINE 2% INJ SDV 5ML 10 ML INJ (20:59)
== END 2023-05-19 20:53 | disposition home or self-care (01) ==
PROVIDERS: Emergency Provider Emergency Medicine; Family Provider Family Medicine; PCP Family Medicine
DX: S61.312A Laceration without foreign body of right middle finger with damage to nail, initial encounter (principal); X58.XXXA Exposure to other specified factors, initial encounter; Z79.01 Long term (current) use of anticoagulants; Z23 Encounter for immunization
CPT/HCPCS: 12001; 73140; 90471; 99283; 90715

== ENCOUNTER → 2023-08-11 09:03 | Outpatient (CLI) | payer MEDICARE, OTHER, SELFPAY ==
[2023-03-21 06:27] VITALS: BMI 28.9
[2023-08-11 10:48] LABS: Alanine Aminotransferase 20 IU/L (<50); Albumin 3.5 g/dL (3.5-5.0); Albumin Globulin Ratio 1.7 (1.0-2.8); Alkaline Phosphatase 93 U/L (38-126); Aspartate Aminotransferase 25 IU/L (17-59); BUN Creatinine Ratio 17.3 (6-22); Blood Urea Nitrogen 19 mg/dL (9-20); Calcium 9.5 mg/dL (8.4-10.2); Carbon Dioxide 29 mmol/L (22-32); Chloride 103 mmol/L (98-107); Estimated Glomerular Filt Rate > 60 mL/min (>60); Globulin 2.1 g/dL (1.7-4.1); Glucose 93 mg/dL (80-110); HEMOLYSIS < 15 (0-50); Potassium 3.9 mmol/L (3.4-5.1); Sodium 137 mmol/L (137-145); Total Protein 5.6 g/dL (6.3-8.2)
== END ==
PROVIDERS: Family Provider Family Medicine; PCP Family Medicine; Referring Provider Specialist; Visit Provider Specialist
DX: E78.5 Hyperlipidemia, unspecified (principal)
CPT/HCPCS: 36415; 80053

== ENCOUNTER → 2023-08-12 09:31 | Outpatient (CLI) | payer MEDICARE, OTHER, SELFPAY ==
[2023-03-21 06:27] VITALS: BMI 28.9
[2023-08-12 11:08] LABS: Magnesium 1.9 mg/dL (1.6-2.3)
== END ==
PROVIDERS: Family Provider Family Medicine; PCP Family Medicine; Referring Provider Specialist; Visit Provider Specialist
DX: E78.5 Hyperlipidemia, unspecified (principal); I48.19 Other persistent atrial fibrillation
CPT/HCPCS: 36415; 80061; 83704; 83735